=== PATIENT | female | born 1935 | race Caucasian/White ===

== ENCOUNTER 2017-12-20 23:57 | Emergency (ER) | payer OTHER ==
--- NOTE | 2017-12-21 00:08 | ED UPPER/LOWER EXTREMITY COMPL ---
History of Present Illness General Chief Complaint: Hip Injury Stated Complaint: BIBA RIGHT HIP DISLOCATION Source: patient Exam Limitations: no limitations Vital Signs & Intake/Output Vital Signs & Intake/Output Vital Signs Date Time Temp Pulse Resp B/P B/P Pulse O2 O2 Flow FiO2 Mean Ox Delivery Rate 12/21 0007 98.3 73 16 121/63 98 Room Air Allergies Coded Allergies: adhesive (UNKNOWN 12/21/17) celecoxib (UNKNOWN 12/21/17) methotrexate (UNKNOWN 12/21/17) morphine (UNKNOWN 12/21/17) propoxyphene (UNKNOWN 12/21/17) sulfamethazine (UNKNOWN 12/21/17) vancomycin (UNKNOWN 12/21/17) Reconcile Medications Acetaminophen 500 MG TABLET 650 MG PO Q4H PRN PAIN, TEMP OVER 100 (Reported) Acetaminophen 500 MG TABLET 650 MG ND Q4H PRN PAIN, TEMP OVER 100 (Reported) Bimatoprost (Lumigan) 0.01 % DROPS 1 GTT OPH QPM GLAUCOMA (Reported) Bisacodyl (Bisac-Evac) 10 MG SUPP.RECT 1 SUPP ND DAILY PRN CONSTIPATION ( Reported) IF M.O.M. INEFFECTIVE Brinzolamide/Brimonidine Tart (Simbrinza 1%-0.2% Eye Drops) 1 %-0.2 % DROPS.SUSP 1 DROP OU BID GLAUCOMA (Reported) Calcium Carbonate (TUMS) 200 MG CALCIUM (500 MG) TAB.CHEW 1,200 MG PO QAM REFLUX (Reported) Donepezil HCl (Aricept) 5 MG TABLET 1 TAB PO QAM (Reported) Hydroxychloroquine Sulfate 200 MG TABLET 1 TAB PO BID (Reported) Levothyroxine Sodium (Synthroid) 112 MCG TABLET 1 TAB PO DAILY HYPOTHYROID ( Reported) Lorazepam (Ativan) 0.5 MG TABLET 0.5 TAB PO BID AGITATION, ANXIETY (Reported) Magnesium Hydroxide (Milk Of Magnesia) 400 MG/5 ML ORAL.SUSP 30 ML PO DAILY PRN CONSTIPATION (Reported) Memantine HCl (Namenda) 10 MG TABLET 5 MG PO BID DEMENTIA (Reported) Multivitamin (Multivitamins) 1 EACH CAPSULE 1 TAB PO DAILY SUPPLEMENT ( Reported) Na Phos,M-B/Na Phos,Di-Ba (Fleet Enema) 19 GRAM-7 GRAM/118 ML ENEMA 1 E RC ONCE PRN CONSTIPATION (Reported) Quetiapine Fumarate 25 MG TABLET 1 TAB PO QPM DEPRESSION (Reported) Risperidone (Risperdal) 1 MG TABLET 1 TAB PO QPM DEPRESSION (Reported) Sennosides/Docusate Sodium (Senexon-S Tablet) 8.6 MG-50 MG TABLET 1 TAB PO DAILY CONSTIPATION (Reported) Sertraline HCl 50 MG TABLET 1 TAB PO DAILY DEPRESSION (Reported) Timolol Maleate 0.5 % DROPS 1 GTT OPH QAM GLAUCOMA (Reported) INTO L EYE Trazodone HCl 50 MG TABLET 12.5 MG PO Q8H PRN AGITATION (Reported) Triage Nurses Notes Reviewed? yes Onset: Just prior to arrival Duration: hour(s): (?) Timing: no prior history Severity: moderate Method of Injury: unknown Modifying Factors: Improves With: immobilization. Worsens With: movement. HPI: Patient is an 82-year-old female coming in by ambulance from nursing facility with chief complaint of right hip dislocation. Uncertain exactly when this happened. 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 On the pelvic x-ray they noted a right superior hip dislocation. There has been no documented injury or trauma or falls. Unsure exactly when this dislocation occurs. They're unsure when patient had right hip replacement surgery. Patient unable to tell history. (Chana Deshpande) Past History Travel History Traveled to [place] past 21 day No Medical History Any Pertinent Medical History? 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 No (Chana Deshpande) Review of Systems Review of Systems Constitutional: Reports: no symptoms. Comments Review of systems: See HPI, All other systems negative, provided by EMS and IV 10 Constitutional, no chills fever or weight loss HEENT: No visual changes no sore throat no congestion Cardiovascular: No chest pain ,palpitation Skin, no jaundice no rashes Respiratory: No dyspnea cough sputum GI: No nausea no vomiting : No dysuria , MENDEZ CATH Muscle skeletal: no back pain, no neck pain, Neurologic: No numbness no INCREASED confusion Psych: No stress anxiety or depression,. Heme/endocrine: No bruising no bleeding no polyuria or polydipsia Immunology: No splenectomy or history of AIDS (Chana Deshpande) Physical Exam Physical Exam General Appearance: well developed/nourished, no apparent distress, alert, anxious, comfortable Comments: Well-developed well-nourished person in no acute distress HEENT: Atraumatic, normocephalic Neck: Normal inspection Cardiovascular: Regular rate and rhythms Respiratory: Chest nontender. No respiratory distress.breath sounds clear to auscultation bilaterally Abdomen: Soft, nontender nondistended, no appreciable organomegaly. Normal bowel sounds. No ascites Extremity: No edema, no calf tenderness to palpation, normal and equal pulses. Right lower extremity is flexed at the hip and the knee and internally rotated slightly. Pedal pulses are 2+ bilaterally. Old surgical incision noted over the right patella. Neuro: alert to baseline Skin: No appreciable rash on exposed skin, skin is warm and dry. Psych: Mood and affect is normal for patient, poor memory (Chana Deshpande) Progress Differential Diagnosis: contusion, dislocation, fracture, sprain Diagnostic Imaging: Viewed by Me: Radiology Read. Discussed w/RAD: Radiology Read. Radiology Impression: SERVICE DATE: 12/21/17 EXAM TYPE: RAD - XRY-HIP 2-3 VIEWS, RIGHT EXAMINATION: XR HIP, RIGHT CLINICAL INFORMATION: Confirm questionable right hip dislocation COMPARISON: None TECHNIQUE: Two views of the right hip. FINDINGS: Hip arthroplasty hardware is present in the proximal right femur. The femoral head component is dislocated superolaterally relative to the acetabulum. No acute fracture is seen. There is partial visualization of additional hardware in the distal femur. There is also partial visualization of lumbosacral spine fusion hardware as well as screws traversing the sacroiliac joints. Regions of lucency are noted adjacent to the sacroiliac screws which are age-indeterminate though can be seen in the setting of loosening or infection. IMPRESSION: 1. Superolateral dislocation of the right femoral head arthroplasty hardware relative to the acetabulum. 2. Partial visualization of additional hardware as noted above. Regions of lucency adjacent to sacroiliac screws are age-indeterminate though in the proper clinical setting can be seen with loosening or infection. DICTATED BY: Jelani Bejarano MD DATE/TIME DICTATED:12/21 MAIL FORWARDING SYSTEM MARKUP CLERK:MADDISON DATE/TIME TRANSCRIBED:12/21/17127 CONFIDENTIAL, DO NOT COPY WITHOUT APPROPRIATE AUTHORIZATION. <Electronically signed in Other Vendor System> SIGNED BY: Jelani Bejarano MD 12/21/17133 (Chana Deshpande) Plan of Care: Orders Procedure Date/time Status PARTIAL THROMBOPLASTIN TIME 12/22 123 Complete PROTHROMBIN TIME 12/22 123 Complete COMPREHENSIVE METABOLIC PANEL 12/22 123 Complete CBC WITHOUT DIFFERENTIAL 12/22 123 Complete TYPE & SCREEN (NOT X-MATCH) 12/22 123 Complete Current Medications Sig/Rosa Start time Last Medication Dose Stop Time Status Admin Hydromorphone HCl 0.2 MG ONCE ONE 12/21 129 CAN (Dilaudid) 12/21 130 Laboratory Tests 12/21/17129: Anion Gap 12, Estimated GFR > 60, BUN/Creatinine Ratio 20.0, Glucose 88, Calcium 9.6, Total Bilirubin 0.2, AST 17, ALT 22, Alkaline Phosphatase 94, Total Protein 5.5 L, Albumin 2.9 L, Globulin 2.6, Albumin/Globulin Ratio 1.1, PT 12.1, INR 1.11, APTT 28, CBC w Diff NO MAN DIFF REQ, RBC 4.04 L, MCV 80.5 L, MCH 26.6 L , MCHC 33.1, RDW 16.4 H, MPV 7.7, Gran % 69.9, Lymphocytes % 15.7 L, Monocytes % 8.8, Eosinophils % 5.0, Basophils % 0.6, Absolute Granulocytes 4.8, Absolute Lymphocytes 1.1 L, Absolute Monocytes 0.6, Absolute Eosinophils 0.3, Absolute Basophils [address] Ingram regarding patient's hip x-ray. Unable to reduce hip after several times. He thinks that her hip has been dislocated for several years and since she is noncontributory N she should be sent back to the nursing facility and follow up outpatient. (Chana Deshpande) (Nino CHEN,Aimee) Departure Departure Disposition: HOME OR SELF CARE Condition: Stable Clinical Impression Primary Impression: Hip dislocation, right Qualifiers: Encounter type: initial encounter Qualified Code: S73.004A - Unspecified dislocation of right hip, initial encounter Ruled Out Impressions: Hip dislocation, bilateral Referrals: Edward John MD (PCP/Family) Additional Instructions: Follow-up with your primary care physician the next 1-2 days. Avoid excessive flexion or extension of the right hip. Departure Forms: Customer Survey General Discharge Information (Chana Deshpande) PA/DETECTIVE SERGEANT Co-Sign Statement Statement: ED Attending supervision documentation- [X] I saw and evaluated the patient. I have also reviewed all the pertinent lab results and diagnostic results. I agree with the findings and the plan of care as documented in the PA's/DETECTIVE SERGEANT's documentation. [X] I have reviewed the ED Record and agree with the PA's/DETECTIVE SERGEANT's documentation. [] Additions or exceptions (if any) to the PAs/DETECTIVE SERGEANT's note and plan are summarized below: [] (Nino CHEN,Aimee)
[2017-12-21] MEDS ORDERED: TUMS200 MG PO (01:18)
[2017-12-21] MEDS ORDERED: SYNTHROID112 MCG PO (01:18)
[2017-12-21] MEDS ORDERED: ARICEPT5 M1 PO (01:19)
[2017-12-21] MEDS ORDERED: MULTIVITAMINS1 EAC8 PO (01:19)
[2017-12-21] MEDS ORDERED: TIMOLOL MALEATE5 M4 OPH (01:20)
[2017-12-21] MEDS ORDERED: SENEXON-S TABL1 EACH PO (01:20)
[2017-12-21] MEDS ORDERED: SERTRALINE HCL50 MG PO (01:20)
[2017-12-21] MEDS ORDERED: HYDROXYCHLOROQ200 M2 PO (01:21)
[2017-12-21] MEDS ORDERED: NAMENDA10 M2 PO (01:21)
[2017-12-21] MEDS ORDERED: SIMBRINZA 1%-0.28 ML OU (01:22)
[2017-12-21] MEDS ORDERED: ATIVAN0.5 M1 PO (01:22)
[2017-12-21] MEDS ORDERED: RISPERDAL1 M1 PO (01:23)
[2017-12-21] MEDS ORDERED: LUMIGAN2.5 ML OPH (01:23)
[2017-12-21] MEDS ORDERED: QUETIAPINE FUMA25 M1 PO (01:23)
[2017-12-21] MEDS ORDERED: MILK OF MA400 MG/52 PO (01:24)
[2017-12-21] MEDS ORDERED: BISAC-EVAC10 M1 PR (01:25)
[2017-12-21] MEDS ORDERED: FLEET ENEMA133 ML RC (01:25)
[2017-12-21] MEDS ORDERED: TRAZODONE HCL50 M1 PO (01:27)
[2017-12-21] MEDS ORDERED: ACETAMINOPHEN500 M4 PO (01:27)
[2017-12-21] MEDS ORDERED: ACETAMINOPHEN500 M4 PR (01:28)
--- NOTE | 2017-12-21 01:34 | RADIOLOGY REPORT ---
EXAMINATION: XR HIP, RIGHT CLINICAL INFORMATION: Confirm questionable right hip dislocation COMPARISON: None TECHNIQUE: Two views of the right hip. FINDINGS: Hip arthroplasty hardware is present in the proximal right femur. The femoral head component is dislocated superolaterally relative to the acetabulum. No acute fracture is seen. There is partial visualization of additional hardware in the distal femur. There is also partial visualization of lumbosacral spine fusion hardware as well as screws traversing the sacroiliac joints. Regions of lucency are noted adjacent to the sacroiliac screws which are age-indeterminate though can be seen in the setting of loosening or infection. IMPRESSION: 1. Superolateral dislocation of the right femoral head arthroplasty hardware relative to the acetabulum. 2. Partial visualization of additional hardware as noted above. Regions of lucency adjacent to sacroiliac screws are age-indeterminate though in the proper clinical setting can be seen with loosening or infection.
[2017-12-21 01:52] LABS: ABSOLUTE BASOPHIL COUNT 0 /CUMM (0.0-0.2); ABSOLUTE EOSINOPHIL COUNT 0.3 /CUMM (0.0-0.7); ABSOLUTE GRANULOCYTE CT 4.8 /CUMM (1.4-6.5); ABSOLUTE LYMPH COUNT 1.1 /CUMM (1.2-3.4); ABSOLUTE MONOCYTE COUNT 0.6 /CUMM (0.10-0.60); BASOPHIL % 0.6 % (0.0-2.0); GRANULOCYTE % 69.9 % (42.2-75.2); HEMATOCRIT 32.5 % (37-47); MEAN CORPUSCULAR HGB 26.6 PG (27.0-31.0); MEAN CORPUSCULAR HGB CONC 33.1 G/DL (33.0-37.0); MEAN CORPUSCULAR VOLUME 80.5 FL (81.0-99.0); MEAN PLATELET VOLUME 7.7 FL (7.4-10.4); PLATELET COUNT 380 /CUMM (130-400); RBC DISTRIBUTION WIDTH 16.4 % (11.5-14.5); RED BLOOD CELL CT 4.04 /CUMM (4.20-5.40); WHITE BLOOD CELL COUNT 6.8 /CUMM (4.8-10.8)
[2017-12-21 02:03] LABS: PT 12.1 SEC (9.4-12.5); PTT 28 SEC (25-37)
[2017-12-21 02:51] VITALS: BP 137/63
== END 2017-12-21 03:31 ==
LOC: ERH 23:57
PROVIDERS: Emergency Medicine
DX: M24.351 Pathological dislocation of right hip, not elsewhere classified (principal)
CPT/HCPCS: 73502-RT

== ENCOUNTER 2018-01-28 20:58 | Inpatient (IN) | payer OTHER ==
[~2018-01-28] VITALS: Ht 152.4 cm; Wt 57.7 kg
[~2018-01-28 20:58] MED LIST: ACETAMINOPHEN500 M4 PO; ACETAMINOPHEN500 M4 PR; ARICEPT5 M1 PO; ATIVAN0.5 M1 PO; BISAC-EVAC10 M1 PR; FLEET ENEMA133 ML RC; HYDROXYCHLOROQ200 M2 PO; LUMIGAN2.5 ML OPH; MILK OF MA400 MG/52 PO; MULTIVITAMINS1 EAC8 PO; NAMENDA10 M2 PO; QUETIAPINE FUMA25 M1 PO; RISPERDAL1 M1 PO; SENEXON-S TABL1 EACH PO; SERTRALINE HCL50 MG PO; SIMBRINZA 1%-0.28 ML OU; SYNTHROID112 MCG PO; TIMOLOL MALEATE5 M4 OPH; TRAZODONE HCL50 M1 PO; TUMS200 MG PO
--- NOTE | 2018-01-28 21:35 | ED AMS/SEIZURE/WEAK/DIZZY ---
See Addendum History of Present Illness General Chief Complaint: Altered Mental Status Stated Complaint: BIBA AMS Source: old records, EMS, W10 Exam Limitations: unable to give history, not alert/orientated, dementia Vital Signs & Intake/Output Vital Signs & Intake/Output Vital Signs Date Time Temp Pulse Resp B/P B/P Pulse O2 O2 Flow FiO2 Mean Ox Delivery Rate 01/29 0244 97.7 88 16 121/60 95 Room Air 01/29 0039 93 18 120/56 95 Room Air 01/28 2249 97.3 89 14 122/59 95 Room Air 01/28 2221 74 109/53 01/28 2107 98.4 85 22 96/54 95 Room Air 01/28 2105 Room Air ED Intake and Output 01/29 0000 01/28 1200 Intake Total Output Total Balance Patient 160 lb Weight Weight Estimated Measurement Method Allergies Coded Allergies: adhesive (UNKNOWN 12/21/17) celecoxib (UNKNOWN 12/21/17) methotrexate (UNKNOWN 12/21/17) morphine (UNKNOWN 12/21/17) propoxyphene (UNKNOWN 12/21/17) sulfamethazine (UNKNOWN 12/21/17) vancomycin (UNKNOWN 12/21/17) Triage Note: BIBA FROM [place], PER FACILITY STAFF PATIENT IS DEMENTED BUT ALERT AT BASELINE. UPON EMS ARRIVAL PATIENT IS RESPONSIVE TO PAINFUL STIMULI ONLY. PATIENT HAS HISTORY OF CHRONIC WOUND TO R BUTTOCKS. PATIENT IS HYPOTENSIVE PER EMS, IV ACCESS ESTABLISHED #18 LW. PATIENT PLACED ON EDUCATIONAL ADVISOR, CHANGED INTO HOSPITAL GOWN. Triage Nurses Notes Reviewed? yes Onset: Morning Duration: day(s): (1) Severity: moderate HPI: 82 year old female brought in by ambulance [facility]. It was reported today that she had altered mental status at the place where she resides. Patient is typically awake and alert with some baseline dementia. Today she became less responsive throughout the day and presented to the emergency department obtunded. Information given by EMS. Patient's family not present at time of entry to the emergency department. (Gavin TORRES,Zenon) Reconcile Medications Bimatoprost (Lumigan) 0.01 % DROPS 1 GTT OPH QPM GLAUCOMA (Reported) Bisacodyl (Bisac-Evac) 10 MG SUPP.RECT 1 SUPP NM DAILY PRN CONSTIPATION ( Reported) IF M.O.M. INEFFECTIVE Brinzolamide/Brimonidine Tart (Simbrinza 1%-0.2% Eye Drops) 1 %-0.2 % DROPS.SUSP 1 DROP OU BID GLAUCOMA (Reported) Calcium Carbonate (TUMS) 200 MG CALCIUM (500 MG) TAB.CHEW 1,200 MG PO QAM REFLUX (Reported) Donepezil HCl (Aricept) 5 MG TABLET 1 TAB PO QAM (Reported) Hydroxychloroquine Sulfate 200 MG TABLET 1 TAB PO BID (Reported) Levothyroxine Sodium (Synthroid) 112 MCG TABLET 1 TAB PO DAILY HYPOTHYROID ( Reported) Lorazepam (Ativan) 0.5 MG TABLET 0.5 TAB PO BID AGITATION, ANXIETY (Reported) Magnesium Hydroxide (Milk Of Magnesia) 400 MG/5 ML ORAL.SUSP 30 ML PO DAILY PRN CONSTIPATION (Reported) Memantine HCl (Namenda) 10 MG TABLET 5 MG PO BID DEMENTIA (Reported) Mirtazapine (Remeron) 15 MG TABLET 0.5 TAB PO QPM sleep (Reported) Multivitamin (Multivitamins) 1 EACH CAPSULE 1 TAB PO DAILY SUPPLEMENT ( Reported) Na Phos,M-B/Na Phos,Di-Ba (Fleet Enema) 19 GRAM-7 GRAM/118 ML ENEMA 1 E RC ONCE PRN CONSTIPATION (Reported) Quetiapine Fumarate (Seroquel) 25 MG TABLET 0.5 TAB PO BID agitation ( Reported) Quetiapine Fumarate 25 MG TABLET 1 TAB PO QPM DEPRESSION (Reported) Risperidone (Risperdal) 1 MG TABLET 1 TAB PO QPM DEPRESSION (Reported) Sennosides/Docusate Sodium (Senexon-S Tablet) 8.6 MG-50 MG TABLET 1 TAB PO DAILY CONSTIPATION (Reported) Sertraline HCl 50 MG TABLET 1 TAB PO DAILY depression (Reported) Timolol Maleate 0.5 % DROPS 1 GTT OPH QAM GLAUCOMA (Reported) INTO L EYE Trazodone HCl 50 MG TABLET 12.5 TAB PO Q8 PRN agitation (Reported) (Leny CHEN,Kristian Partida) Past History Travel History Traveled to [place] past 21 day No Medical History Any Pertinent Medical History? see below for history Neurological: dementia EENT: glaucoma Cardiovascular: NONE Respiratory: NONE Gastrointestinal: constipation Hepatic: NONE Renal: chronic kidney disease, OBSTRUCTIVE UROPATHY Musculoskeletal: PRESSURE ULCER BUTTOCKS Psychiatric: anxiety, depression Endocrine: hypothyroidism Blood Disorders: NONE Cancer(s): NONE EXPEDITER/Reproductive: NONE Surgical History Surgical History: RIGHT HIP ARTHROPLASTY Psychosocial History What is your primary language Burmese Tobacco Use: Never used ETOH Use: denies use Family History Hx Contributory? No (Zenon Mishra) Review of Systems Review of Systems Constitutional: Reports: see HPI. EENTM: Reports: no symptoms. Respiratory: Reports: no symptoms. Cardiovascular: Reports: no symptoms. GI: Reports: no symptoms. Genitourinary: Reports: no symptoms. Musculoskeletal: Reports: no symptoms. Skin: Reports: no symptoms. Neurological/Psychological: Reports: see HPI. Hematologic/Endocrine: Reports: no symptoms. Immunologic/Allergic: Reports: no symptoms. All Other Systems: Reviewed and Negative (Zenon Mishra) Physical Exam Physical Exam General Appearance: lethargic, responsive only to sternal rub Head: atraumatic, normal appearance Ears, Nose, Throat: normal ENT inspection Neck: normal inspection Respiratory: normal breath sounds, no respiratory distress Cardiovascular: systolic murmur (holosystolic IV/) Peripheral Pulses: 2+ radial (R), 2+ radial (L), 2+ dorsalis pedis (R), 2+ dorsalis pedis (L) Gastrointestinal: normal bowel sounds, soft, non-tender Extremities: able to lift both arms when asked after sternal rub, unable to lift legs, uncertain if this is baseline or not Neurologic/Psych: unable to assess d/t AMS. after sternal rub patient able to give her first name. Skin: intact, normal color, diaphoresis Core Measures ACS in differential dx? Yes CVA/TIA Diagnosis No Sepsis Present: Yes Sepsis Focused Exam Completed? Yes (Zenon Mishra) ED Sepsis Exam Date of Focused Sepsis Exam: 01/29/18 Time of Focused Sepsis Exam: 2114 Sepsis Cardiac Exam: Tachycardia Sepsis Resp Exam: CTA Sepsis Cap Refill Exam: <2 Sec Sepsis Peripheral Pulse Exam: Weak Sepsis Peripheral Pulse Location: Radial Sepsis Skin Color Exam: Normal for Ethnicity Skin Temp/Moisture Exam: Warm/Dry (Zenon Mishra) Progress Differential Diagnosis: dehydration, electrolyte imbalance, hypoglycemia, pneumonia, sepsis, UTI/pyelo Plan of Care: Orders Procedure Date/time Status CBC WITHOUT DIFFERENTIAL 01/30 600 Active BASIC ELECTROLYTES PLUS BUN&CR 01/30 600 Active Heart Healthy Diet 01/29 B Active CBC WITHOUT DIFFERENTIAL 01/29 06 Active BASIC ELECTROLYTES PLUS BUN&CR 01/29 0600 Active Intake & Output 01/29 0233 Active LOWER RESPIRATORY CULTURE 01/29 0135 Active Pathway - chart 01/29 0129 Active House Staff 01/29 0129 Active Code Status 01/29 0129 Active Saline Lock 01/29 0056 Active Misc Message 01/29 0056 Active ED Holding Orders 01/29 0056 Active Admit to inpatient 01/29 0056 Active Vital Signs 01/29 0056 Active Code Status 01/29 0056 Complete Add-on Test (ER Only) 01/29 0039 Active Patient Data 01/29 37 Active Add-on Test (ER Only) 01/30 36 Active VTE Mechanical Prophylaxis 01/29 UNK Active Add-on Test (ER Only) 01/28 2249 Active Add-on Test (ER Only) 01/28 2237 Active TSH REFLEX 01/28 2215 Active TOTAL TRIODOTHYROXINE 01/28 2215 Active TOTAL IRON BINDING CAPACITY 01/28 2215 Active RETICULOCYTE COUNT 01/28 2215 Complete FREE T4 01/28 2215 Active FOLIC ACID 01/28 2215 Active FERRITIN 01/28 2215 Active SERUM IRON 01/28 2215 Active C-REACTIVE PROTEIN 01/28 2215 Active CREATINE PHOSPHOKINASE 01/28 2215 Active VITAMIN B12 01/28 2215 Active CULTURE,URINE 01/28 2205 Active URINE DRUGS OF ABUSE 01/28 2205 Complete BLOOD CULTURE 01/29 2108 Active URINALYSIS 01/29 2108 Complete TROPONIN LEVEL 01/29 2108 Active LACTIC ACID 01/29 2108 Active COMPREHENSIVE METABOLIC PANEL 01/29 2108 Active CBC WITHOUT DIFFERENTIAL 01/29 2108 Complete EKG 01/29 2108 Active Current Medications Sig/Rosa Start time Last Medication Dose Stop Time Status Admin Latanoprost 1 GTT AT BEDTIME 01/29 2100 AC (Xalatan) Clindamycin 600 MG IQ8 01/29 1000 AC (Cleocin) Dextrose/Water 50 ML (D5W) Calcium Carbonate 1,250 MG QAM 01/29 0900 AC (TUMS) Enoxaparin Sodium 40 MG DAILY 01/29 09 AC (Lovenox) Hydroxychloroquine 200 MG BID 01/29 09 AC Sulfate (Plaquenil 200MG Tab) Levothyroxine Sodium 0.112 MG DAILY 01/29 0900 AC (Synthroid) Timolol Maleate 1 GTT QAM 01/29 09 AC (Timoptic) Meropenem 1 GM IQ8 01/29 08 UNVr (MEROPENEM) Sodium Chloride 1,000 ML Q20H 01/29 0300 AC (Normal Saline 0.9%) 01/29 2259 Clindamycin 600 MG ONCE ONE 01/29 0230 AC (Cleocin) 01/29 0259 Dextrose/Water 50 ML (D5W) Imipenem/Cilastatin 500 MG 0200 01/29 0200 AC 01/29 Sodium 01/29 0300 0201 (Primaxin 500MG Vial) Non-Formulary 0 SEE ADMIN CRITERIA 01/29 0145 UNVr Medication (NON FORMULARY) Acetaminophen 650 MG Q6P PRN 01/29 0130 AC (Tylenol) Laboratory Tests 01/29/18 0008: Lactic Acid Cancelled 01/28/185: Anion Gap 10, Estimated GFR > 60, BUN/Creatinine Ratio 22.5, Glucose 121 H, Lactic Acid 1.0, Calcium 8.8, Iron 21 L, TIBC 280, Ferritin 93.4, Total Bilirubin 0.6, AST 19, ALT 24, Alkaline Phosphatase 81, Creatine Kinase 160 H, Troponin I < 0.01, C-Reactive Prot, Quant > 9.0 H, Total Protein 5.5 L, Albumin 2.7 L, Globulin 2.8, Albumin/Globulin Ratio 1.0 L, Vitamin B12 Pending , Folate Pending, Free T4 1.42, Total T3 Pending, TSH &T3 &Free T4 Intrp 7.260 H, CBC w Diff MAN DIFF ORDERED, RBC 3.13 L, MCV 79.2 L, MCH 26.0 L, MCHC 32.8 L, RDW 17.0 H, MPV 7.8, Gran % 88.1 H, Lymphocytes % 4.6 L, Monocytes % 6.9, Eosinophils % 0, Basophils % 0.4, Absolute Granulocytes 19.5 H, Segmented Neutrophils 84 H, Band Neutrophils 3, Absolute Lymphocytes 1.0 L, Lymphocytes 6 L, Monocytes 7, Absolute Monocytes 1.5 H, Absolute Eosinophils 0, Absolute Basophils 0.1, Platelet Estimate ADEQUATE, Anisocytosis 1+, Microcytic Cells 1+, Retic Count 2.41 H 01/28/18 2205: Urine Opiates Screen < 100, Methadone Screen 43, Barbiturate Screen < 60, Ur Phencyclidine Scrn < 6.00, Amphetamines Screen 279, U Benzodiazepines Scrn 143, Urine Cocaine Screen < 50, Urine Cannabis Screen < 5.00, Urine Color YEL, Urine Clarity HAZY H, Urine pH 8.0, Ur Specific [place] >= 1.030, Urine Protein 30 H , Urine Ketones NEG, Urine Nitrite NEG, Urine Bilirubin NEG, Urine Urobilinogen 0.2, Ur Leukocyte Esterase MOD H, Ur Microscopic SEDIMENT EXAMINED, Urine RBC RARE, Urine WBC 1-3 H, Ur Epithelial Cells RARE, Urine Bacteria MANY H, Urine Mucus RARE, Urine Hemoglobin NEG, Urine Glucose NEG Microbiology 01/29 135 LOWER RESP: Respiratory Culture - ORD 01/29 135 LOWER RESP: Gram Stain - ORD 01/28 2230 BLOOD: Blood Culture - RECD 01/29 2220 BLOOD: Blood Culture - RECD 01/28 2205 URINE ROUT: Urine Culture - RECD Diagnostic Imaging: Viewed by Me: Radiology Read, CT Scan. Discussed w/RAD: Radiology Read, CT Scan. Radiology Impression: PATIENT: EZEQUIEL ALFONSO PRESENT AGE: 82 PATIENT ACCOUNT NO: [id number] : 33 LOCATION: [facility] ORDERING PHYSICIAN: Zenon TORRES SERVICE DATE: 01/28/18 EXAM TYPE : CAT - CT HEAD WO IV CONTRAST EXAMINATION: CT HEAD WITHOUT CONTRAST CLINICAL INFORMATION: Altered mental status. COMPARISON: None TECHNIQUE: Contiguous axial imaging was performed from the skull base to vertex without intravenous administration of contrast. DLP: 625.59 mGy-cm FINDINGS: Generalized parenchymal atrophy of the brain with proportionate dilation of the ventricles, sulci, and basilar cisterns. Patchy hypodensities in the bilateral periventricular and subcortical white matter are nonspecific but most suggestive of the sequela of chronic microvascular ischemia in this age group. There are intracranial atherosclerotic calcifications. There is no evidence of acute intracranial hemorrhage or territorial infarction. No abnormal mass effect or midline shift is seen. Disla to white matter differentiation is otherwise well preserved. No extra-axial fluid collections are identified. The osseous structures and soft tissues are normal. The mastoid air cells and visualized portions of the paranasal sinuses are well aerated. The right lower [place] ocular lens is surgically absent. Globes and retrobulbar soft tissues are otherwise within normal limits. IMPRESSION: No acute intracranial pathology. DICTATED BY: Albert Savage MD DATE/TIME DICTATED:01/28/182150 CRIMINAL ANALYST:MADDISON DATE/TIME TRANSCRIBED:01/28/182150 CONFIDENTIAL, DO NOT COPY WITHOUT APPROPRIATE AUTHORIZATION. <Electronically signed in Other Vendor System> SIGNED BY: Albert Savage MD 01/28/182156, PATIENT: EZEQUIEL ALFONSO PRESENT AGE: 82 PATIENT ACCOUNT NO: [id number] : 33 LOCATION: ER ORDERING PHYSICIAN: Zenon TORRES SERVICE DATE: 01/28/18 EXAM TYPE : RAD - XRY-PORTABLE CHEST XRAY EXAMINATION: XR PORTABLE CHEST CLINICAL INFORMATION: Altered mental status COMPARISON: None TECHNIQUE: AP portable view of the chest was obtained. FINDINGS: Heart size is normal. Pulmonary vascularity is normal. The lungs are hypoexpanded. No focal consolidation or atelectasis is appreciated at this time. There is no pneumothorax or pleural effusion. There is spinal fusion hardware over the lower thoracic and upper lumbar spine. There is degenerative change in the shoulders IMPRESSION: Mildly hypoexpanded but clear lungs with no acute or focal findings DICTATED BY: Melva Doherty MD DATE/ TIME DICTATED:01/28/182157 CRIMINAL ANALYST:MADDISON DATE/TIME TRANSCRIBED: 01/28/182157 CONFIDENTIAL, DO NOT COPY WITHOUT APPROPRIATE AUTHORIZATION. < Electronically signed in Other Vendor System> SIGNED BY: Melva Doherty MD 01/28/182202, PATIENT: EZEQUIEL ALFONSO PRESENT AGE: 82 PATIENT ACCOUNT NO: [id number] : 33 LOCATION: ER ORDERING PHYSICIAN: Zenon TORRES SERVICE DATE: 01/28/18 EXAM TYPE : CAT - CT ABD & PELVIS W/O IV CONTRAS EXAMINATION: CT ABDOMEN AND PELVIS WITHOUT CONTRAST CLINICAL INFORMATION: Altered mental status COMPARISON: None TECHNIQUE: Multidetector volumetric imaging was performed from the superior aspect of the liver through the pubic symphysis. Sagittal and coronal reformatted images were obtained on the technologist's workstation. DLP: 413.58 mGy-cm FINDINGS: Assessment throughout the abdomen is limited due to streak artifact from spinal fusion hardware. LUNG BASES: There is mild dependent atelectasis at the lung bases. There is a predominantly calcified right lower lobe nodule measuring 6 mm on image 7/83. LIVER, GALLBLADDER, AND BILIARY TREE: The liver is normal in size, shape, and attenuation. No focal hepatic lesion or biliary ductal dilatation is present. Patient is status post cholecystectomy. PANCREAS: Unremarkable. SPLEEN: Unremarkable. ADRENAL GLANDS: Unremarkable. KIDNEYS AND URETERS: Bilateral extra renal pelvises are noted. No definite obstructing calculus. A 2.2 cm left mid renal cyst is noted. Unenhanced renal parenchyma otherwise appears grossly unremarkable. BLADDER: Unremarkable. GASTROINTESTINAL TRACT: The rectum has a thick-walled appearance, which could reflect inflammation with mild surrounding stranding. There is colonic diverticulosis. No findings to suggest bowel obstruction. A moderate amount of stool is present in the colon. ABDOMINAL WALL: Small hernia is noted along the left posterolateral abdominal wall containing a short segment of colon without evidence of obstruction. LYMPH NODES: Not adequately assessed due to extensive streak artifact and absence of intravenous contrast. VASCULAR: There is atherosclerotic calcification along the aorta. PELVIC VISCERA: Patient appears status post hysterectomy. OSSEOUS STRUCTURES: There is fusion hardware throughout the included portion of the thoracolumbar spine. Patient is status post right hip arthroplasty, and there is superior dislocation of the femoral head component relative to the acetabulum, similar to 12/21/2017. IMPRESSION: 1. Limited assessment of intra-abdominal structures due to streak artifact from spinal fusion hardware. 2. Thick-walled appearance of the rectum with mild surrounding stranding; this could reflect a proctitis in the proper clinical setting. DICTATED BY: Jelani Bejarano MD DATE/TIME DICTATED:01/29/184 CRIMINAL ANALYST:MADDISON DATE/TIME TRANSCRIBED:01/29/184 CONFIDENTIAL, DO NOT COPY WITHOUT APPROPRIATE AUTHORIZATION. <Electronically signed in Other Vendor System> SIGNED BY: Jelani Bejarano MD 01/29/18 0019 Initial ED EKG: normal sinus rhythm, rate (77) (Zenon Mishra) Departure Departure Disposition: STILL A PATIENT Condition: Stable Clinical Impression Primary Impression: Sepsis Secondary Impressions: Altered mental status Referrals: Edward John MD (PCP/Family) Departure Forms: Customer Survey General Discharge Information Admission Note Spoke With: Edward John MD Documentation of Exam: Documentation of any treatments & extenuating circumstances including Concerns Regarding Discharge (functional status, medication knowledge or non-compliance, living conditions, etc.) that warrant an admission rather than observation: Patient will require IV antibiotics. IV fluids. Infectious disease consultation. High risk. (Zenon Mishra) PA/TOPOLOGY TEACHER Co-Sign Statement Statement: ED Attending supervision documentation- [x] I saw and evaluated the patient. I have also reviewed all the pertinent lab results and diagnostic results. I agree with the findings and the plan of care as documented in the PA's/TOPOLOGY TEACHER's documentation. 01/28/18, 22:54... pt meets criteria for sepsis, presently resting comfortable, wbc 22,000. Most likely etiology is urine vs other. cxr is benign, 02 sat is normal. Given history of ESBL resistant e.coli and her septic shock, will give imipenem, pending cultures. [] I have reviewed the ED Record and agree with the PA's/TOPOLOGY TEACHER's documentation. [] Additions or exceptions (if any) to the PAs/TOPOLOGY TEACHER's note and plan are summarized below: [] (Leny CHEN,Kristian Partida) Critical Care Note Critical Care Note Critical Care Time: 30-74 min (35) (Zenon Mishra)
--- NOTE | 2018-01-28 21:57 | CT SCAN REPORT ---
EXAMINATION: CT HEAD WITHOUT CONTRAST CLINICAL INFORMATION: Altered mental status. COMPARISON: None TECHNIQUE: Contiguous axial imaging was performed from the skull base to vertex without intravenous administration of contrast. DLP: 625.59 mGy-cm FINDINGS: Generalized parenchymal atrophy of the brain with proportionate dilation of the ventricles, sulci, and basilar cisterns. Patchy hypodensities in the bilateral periventricular and subcortical white matter are nonspecific but most suggestive of the sequela of chronic microvascular ischemia in this age group. There are intracranial atherosclerotic calcifications. There is no evidence of acute intracranial hemorrhage or territorial infarction. No abnormal mass effect or midline shift is seen. Disla to white matter differentiation is otherwise well preserved. No extra-axial fluid collections are identified. The osseous structures and soft tissues are normal. The mastoid air cells and visualized portions of the paranasal sinuses are well aerated. The right [place] ocular lens is surgically absent. Globes and retrobulbar soft tissues are otherwise within normal limits. IMPRESSION: No acute intracranial pathology.
--- NOTE | 2018-01-28 22:03 | RADIOLOGY REPORT ---
EXAMINATION: XR PORTABLE CHEST CLINICAL INFORMATION: Altered mental status COMPARISON: None TECHNIQUE: AP portable view of the chest was obtained. FINDINGS: Heart size is normal. Pulmonary vascularity is normal. The lungs are hypoexpanded. No focal consolidation or atelectasis is appreciated at this time. There is no pneumothorax or pleural effusion. There is spinal fusion hardware over the lower thoracic and upper lumbar spine. There is degenerative change in the shoulders IMPRESSION: Mildly hypoexpanded but clear lungs with no acute or focal findings
[2018-01-28 22:21] LABS: ABSOLUTE BASOPHIL COUNT 0.1 /CUMM (0.0-0.2); ABSOLUTE EOSINOPHIL COUNT 0 /CUMM (0.0-0.7); EOSINOPHIL % 0 % (0-5); MEAN PLATELET VOLUME 7.8 FL (7.4-10.4); RED BLOOD CELL CT 3.13 /CUMM (4.20-5.40)
[2018-01-28 22:23] LABS: ABSOLUTE GRANULOCYTE CT 19.5 /CUMM (1.4-6.5); ABSOLUTE MONOCYTE COUNT 1.5 /CUMM (0.10-0.60); BASOPHIL % 0.4 % (0.0-2.0); GRANULOCYTE % 88.1 % (42.2-75.2); HEMATOCRIT 24.8 % (37-47); MEAN CORPUSCULAR HGB CONC 32.8 G/DL (33.0-37.0); MEAN CORPUSCULAR VOLUME 79.2 FL (81.0-99.0); PLATELET COUNT 323 /CUMM (130-400)
[2018-01-28 22:24] LABS: WHITE BLOOD CELL COUNT 22.1 /CUMM (4.8-10.8)
--- NOTE | 2018-01-29 00:19 | CT SCAN REPORT ---
EXAMINATION: CT ABDOMEN AND PELVIS WITHOUT CONTRAST CLINICAL INFORMATION: Altered mental status COMPARISON: None TECHNIQUE: Multidetector volumetric imaging was performed from the superior aspect of the liver through the pubic symphysis. Sagittal and coronal reformatted images were obtained on the technologist's workstation. DLP: 413.58 mGy-cm FINDINGS: Assessment throughout the abdomen is limited due to streak artifact from spinal fusion hardware. LUNG BASES: There is mild dependent atelectasis at the lung bases. There is a predominantly calcified right lower lobe nodule measuring 6 mm on image 7/83. LIVER, GALLBLADDER, AND BILIARY TREE: The liver is normal in size, shape, and attenuation. No focal hepatic lesion or biliary ductal dilatation is present. Patient is status post cholecystectomy. PANCREAS: Unremarkable. SPLEEN: Unremarkable. ADRENAL GLANDS: Unremarkable. KIDNEYS AND URETERS: Bilateral extra renal pelvises are noted. No definite obstructing calculus. A 2.2 cm left mid renal cyst is noted. Unenhanced renal parenchyma otherwise appears grossly unremarkable. BLADDER: Unremarkable. GASTROINTESTINAL TRACT: The rectum has a thick-walled appearance, which could reflect inflammation with mild surrounding stranding. There is colonic diverticulosis. No findings to suggest bowel obstruction. A moderate amount of stool is present in the colon. ABDOMINAL WALL: Small hernia is noted along the left posterolateral abdominal wall containing a short segment of colon without evidence of obstruction. LYMPH NODES: Not adequately assessed due to extensive streak artifact and absence of intravenous contrast. VASCULAR: There is atherosclerotic calcification along the aorta. PELVIC VISCERA: Patient appears status post hysterectomy. OSSEOUS STRUCTURES: There is fusion hardware throughout the included portion of the thoracolumbar spine. Patient is status post right hip arthroplasty, and there is superior dislocation of the femoral head component relative to the acetabulum, similar to 12/21/2017. IMPRESSION: 1. Limited assessment of intra-abdominal structures due to streak artifact from spinal fusion hardware. 2. Thick-walled appearance of the rectum with mild surrounding stranding; this could reflect a proctitis in the proper clinical setting.
--- NOTE | 2018-01-29 00:42 | History & Physical ---
Ab Cintron 01/29/18 0040: General Information and HPI History of Present Illness: Ms. Ortiz is a 82 yo F with a PMH of anxiety, hypothyroidism, dementia, depression, obstructive uropathy, ESBL and MRSA who presents from [facility] to the ED with a fever of 102.5. Patient poor historian. 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 She was also lethargic and borderline hypotensive BP 115/68, HR 104. Her labs and cultures were sent that reported this morning blood cultures gram-positive cocci in one bottle. POA was contacted in regards to this information and requested the patient be sent to the hospital for further management though advanced directives reported no hospitalization. She denies nausea, vomiting, abdominal pain, urinary or bowel symptoms. Allergies/Medications Allergies: Coded Allergies: adhesive (UNKNOWN 12/21/17) celecoxib (UNKNOWN 12/21/17) methotrexate (UNKNOWN 12/21/17) morphine (UNKNOWN 12/21/17) propoxyphene (UNKNOWN 12/21/17) sulfamethazine (UNKNOWN 12/21/17) vancomycin (UNKNOWN 12/21/17) Home Med list Bimatoprost (Lumigan) 0.01 % DROPS 1 GTT OPH QPM GLAUCOMA (Reported) Bisacodyl (Bisac-Evac) 10 MG SUPP.RECT 1 SUPP ME DAILY PRN CONSTIPATION ( Reported) IF M.O.M. INEFFECTIVE Brinzolamide/Brimonidine Tart (Simbrinza 1%-0.2% Eye Drops) 1 %-0.2 % DROPS.SUSP 1 DROP OU BID GLAUCOMA (Reported) Calcium Carbonate (TUMS) 200 MG CALCIUM (500 MG) TAB.CHEW 1,200 MG PO QAM REFLUX (Reported) Donepezil HCl (Aricept) 5 MG TABLET 1 TAB PO QAM (Reported) Hydroxychloroquine Sulfate 200 MG TABLET 1 TAB PO BID (Reported) Levothyroxine Sodium (Synthroid) 112 MCG TABLET 1 TAB PO DAILY HYPOTHYROID ( Reported) Lorazepam (Ativan) 0.5 MG TABLET 0.5 TAB PO BID AGITATION, ANXIETY (Reported) Magnesium Hydroxide (Milk Of Magnesia) 400 MG/5 ML ORAL.SUSP 30 ML PO DAILY PRN CONSTIPATION (Reported) Memantine HCl (Namenda) 10 MG TABLET 5 MG PO BID DEMENTIA (Reported) Mirtazapine (Remeron) 15 MG TABLET 0.5 TAB PO QPM sleep (Reported) Multivitamin (Multivitamins) 1 EACH CAPSULE 1 TAB PO DAILY SUPPLEMENT ( Reported) Na Phos,M-B/Na Phos,Di-Ba (Fleet Enema) 19 GRAM-7 GRAM/118 ML ENEMA 1 E RC ONCE PRN CONSTIPATION (Reported) Quetiapine Fumarate (Seroquel) 25 MG TABLET 0.5 TAB PO BID agitation ( Reported) Quetiapine Fumarate 25 MG TABLET 1 TAB PO QPM DEPRESSION (Reported) Risperidone (Risperdal) 1 MG TABLET 1 TAB PO QPM DEPRESSION (Reported) Sennosides/Docusate Sodium (Senexon-S Tablet) 8.6 MG-50 MG TABLET 1 TAB PO DAILY CONSTIPATION (Reported) Sertraline HCl 50 MG TABLET 1 TAB PO DAILY depression (Reported) Timolol Maleate 0.5 % DROPS 1 GTT OPH QAM GLAUCOMA (Reported) INTO L EYE Trazodone HCl 50 MG TABLET 12.5 TAB PO Q8 PRN agitation (Reported) Past History Travel History Traveled to [place] past 21 day No Medical History Neurological: dementia EENT: glaucoma Cardiovascular: NONE Respiratory: NONE Gastrointestinal: constipation Hepatic: NONE Renal: chronic kidney disease, OBSTRUCTIVE UROPATHY Musculoskeletal: PRESSURE ULCER BUTTOCKS Psychiatric: anxiety, depression Endocrine: hypothyroidism Blood Disorders: NONE Cancer(s): NONE 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 Exam & Diagnostic Data Last 24 Hrs of Vital Signs/I&O Vital Signs Date Time Temp Pulse Resp B/P B/P Pulse O2 O2 Flow FiO2 Mean Ox Delivery Rate 01/29 0039 93 18 120/56 95 Room Air 01/28 2249 97.3 89 14 122/59 95 Room Air 01/281 74 109/53 01/28 2107 98.4 85 22 96/54 95 Room Air 01/28 2105 Room Air Intake & Output 01/29 0800 01/29 0000 01/28 1600 Intake Total Output Total Balance Patient 160 lb Weight Weight Estimated Measurement Method Physical Exam General Appearance Alert, No Acute Distress, Oriented to person. Does not follow commands Skin R pinkish sacral pressure ulcer without drainage Sepsis Skin Exam (color): Normal for Ethnicity HEENT Atraumatic, PERRLA, EOMI, Mucous Membr. moist/pink Neck Supple, No JVD Cardiovascular 2/6 systolic murmur Lungs Clear to Auscultation, Normal Air Movement Abdomen Normal Bowel Sounds, Soft, No Tenderness, Periumbilical surgical scar. Subcutaneous dilaudid pump, skin intact Neurological 2/5 motor strength throughout Extremities Hyperpigmented skin discoloration on R ankle Sepsis Peripheral Pulse Location: Radial Sepsis Peripheral Pulse Exam: Normal Sepsis Cap Refill Exam: <2 Sec Last 24 Hrs of Labs/Black: Laboratory Tests 01/29/18 0008: Lactic Acid Cancelled 01/28/18 2215: Anion Gap 10, Estimated GFR > 60, BUN/Creatinine Ratio 22.5, Glucose 121 H, Lactic Acid 1.0, Calcium 8.8, Iron Pending, TIBC Pending, Ferritin Pending, Total Bilirubin 0.6, AST 19, ALT 24, Alkaline Phosphatase 81, Creatine Kinase Pending, Troponin I < 0.01, C-Reactive Prot, Quant Pending, Total Protein 5.5 L , Albumin 2.7 L, Globulin 2.8, Albumin/Globulin Ratio 1.0 L, Vitamin B12 Pending, Folate Pending, TSH &T3 &Free T4 Intrp Pending, CBC w Diff MAN DIFF ORDERED, RBC 3.13 L, MCV 79.2 L, MCH 26.0 L, MCHC 32.8 L, RDW 17.0 H, MPV 7.8, Gran % 88.1 H, Lymphocytes % 4.6 L, Monocytes % 6.9, Eosinophils % 0, Basophils % 0.4, Absolute Granulocytes 19.5 H, Segmented Neutrophils 84 H, Band Neutrophils 3, Absolute Lymphocytes 1.0 L, Lymphocytes 6 L, Monocytes 7, Absolute Monocytes 1.5 H, Absolute Eosinophils 0, Absolute Basophils 0.1, Platelet Estimate ADEQUATE, Anisocytosis 1+, Microcytic Cells 1+, Retic Count Pending 01/28/185: Urine Opiates Screen < 100, Methadone Screen 43, Barbiturate Screen < 60, Ur Phencyclidine Scrn < 6.00, Amphetamines Screen 279, U Benzodiazepines Scrn 143, Urine Cocaine Screen < 50, Urine Cannabis Screen < 5.00, Urine Color YEL, Urine Clarity HAZY H, Urine pH 8.0, Ur Specific [place] >= 1.030, Urine Protein 30 H , Urine Ketones NEG, Urine Nitrite NEG, Urine Bilirubin NEG, Urine Urobilinogen 0.2, Ur Leukocyte Esterase MOD H, Ur Microscopic SEDIMENT EXAMINED, Urine RBC RARE, Urine WBC 1-3 H, Ur Epithelial Cells RARE, Urine Bacteria MANY H, Urine Mucus RARE, Urine Hemoglobin NEG, Urine Glucose NEG Microbiology 01/29 135 LOWER RESP: Respiratory Culture - ORD 01/29 135 LOWER RESP: Gram Stain - ORD 01/28 2230 BLOOD: Blood Culture - RECD 01/29 2220 BLOOD: Blood Culture - RECD 01/28 2205 URINE ROUT: Urine Culture - RECD Diagnostic Data EKG Results SR, HR 77, QTc 462 CXR Results FINDINGS: Heart size is normal. Pulmonary vascularity is normal. The lungs are hypoexpanded. No focal consolidation or atelectasis is appreciated at this time. There is no pneumothorax or pleural effusion. There is spinal fusion hardware over the lower thoracic and upper lumbar spine. There is degenerative change in the shoulders IMPRESSION: Mildly hypoexpanded but clear lungs with no acute or focal findings Other Results CT HEAD WITHOUT CONTRAST IMPRESSION: No acute intracranial pathology. CT ABDOMEN AND PELVIS WITHOUT CONTRAST IMPRESSION: 1. Limited assessment of intra-abdominal structures due to streak artifact from spinal fusion hardware. 2. Thick-walled appearance of the rectum with mild surrounding stranding; this could reflect a proctitis in the proper clinical setting. Assessment/Plan Assessment: Ms. Ortiz is a 82 yo F with a PMH of anxiety, hypothyroidism, dementia, depression, obstructive uropathy, ESBL and MRSA who presents from [facility] to the ED with a fever of 102.5 and lethargy. According to EMS on arrival, patient was found to be hypotensive, SBP 70s and only responsive to sternal rub. Problem list: Gram-positive bacteremia vs Sepsis History of dementia History of ESBL and MRSA susceptible to Carbapenems Plan: Admit to general med for further evaluation and management IV meropenem to cover ESBL IV clindamycin to cover MRSA (patient allergic to Vancomycin, reaction unknown) Resume home medications except sedatives, reassess in the morning Confirm reason for hydroxychloroquine with nursing facility Pancultures ID consult Wound consult Diet: Heart healthy DVT ppx: sc Enoxaparin Code: DNR/I As Ranked By This Provider Problem List: 1. Bacteremia due to Gram-positive bacteria 2. Sepsis Core Measures/Misc (06/25) Acute Coronary Syndrome ACS Diagnosis: No Congestive Heart Failure Congestive Heart Failure Diagnosis No Cerebrovascular Accident CVA/TIA Diagnosis: No VTE (View Protocol) VTE Risk Factors Age>40 No Mechanical VTE Prophylaxis d/t N/A MechProphylax Ordered No VTE Pharm Prophylaxis d/t NA PharmProphylax ordered Sepsis (View protocol) Sepsis Present: Yes Deysi Brower 01/29/18 0311: Resident Review Statement Resident Statement: examined this patient, discussed with internet database specialist, agreed with internet database specialist, reviewed images, amended to note Other Findings: 82-year-old lady with history of dementia, minimally communicative, bedbound?, anxiety, hyperthyroidism, on hydroxychloroquine due to unknown reasons?, dislocated right femur, Unknown abdominal surgeries and hip replacement with Dilaudid pump nonfunctional on the left side, 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 Patient is a very poor historian and is unable to provide any reliable history. According to the ED staff and a intermediate patient had fever of 101 in the intermediate and episode of lethargy and fatigue. per EMS her systolic blood pressure was around 70s during the transport as well. Patient denies any chest pain, nausea, vomiting, abdominal pain, fevers, chills when questioned. Per nursing facility patient's power of commonwealth attorney, her son was contacted and he requested that patient should be transported to the hospital. According to document in the patient's package patient is DNR/DNI and "do not hospitalize". On arrival patient's systolic blood pressure was less than 100 which was improved with IV bolus hydration therapy and increase to 121/60 with O2 saturation 95% on room air with pulse of 88 and temperature 97.7. During the examination was also informed that patient's 1 of blood culture sets which was around in the morning in the facility is showing gram positive cocci in clusters. Patient has already received IV imipenem in the ED as well. Physical exam was limited Patient was alert 1 Heart 3 out of 6 systolic murmur Chest decreased bilateral breath sounds Abdomen nontender, mildly distended there is a device on the left side of the abdominal wall(nonfunctional Dilaudid pump) Left upper extremity strength 4 out of 5 and patient Full details of physical examination above WBC 22.1, hemoglobin 8.1, MCV 79, sodium 133, lactic acid 1.0, CRP is more than 9, CPK is 160, urine tox showed mildly positive methadone, amphetamine, benzodiazepine UA showed protein 30, leukocyte esterase moderate, WBC 1-3, bacteria many CXR: Mildly hypoexpanded but clear lungs with no acute or focal findings HEAD CT No acute intracranial pathology. abdominal CT: 1. Limited assessment of intra-abdominal structures due to streak artifact from spinal fusion hardware. 2. Thick-walled appearance of the rectum with mild surrounding stranding; this could reflect a proctitis in the proper clinical setting. EKS NSR poor quaily no acute ST- T elavation Assessment AMS Sepsis due to ESBL versus MRSA bacteremia History of UTI ESBL History of MRSA History of depression/dementia History of hypothyroidism Hypotension History of glaucoma Plan Admit to general medicine floor Gentle IV hydration We will put the patient on IV clindamycin(MRSA) and IV meropenem(ESBL) and ask for ID the consultation in the morning Follow blood cultures, sputum cultures, urine culture Wound consult in the morning Hold all of the antipsychotic/anti-depressive medications for now and reassess in the morning, it should be noted this patient is on benzo and it should be restarted as soon as possible as patient altered mental status improved EKG in AM Continue eyedrops for glaucoma Continue p.o. levothyroxine Check iron studies and reticulocyte count Continue hydroxychloroquine and clarify with the intermediate/PCP for the reason for being on hydroxychloroquine DNR/DNI, DVT prophylaxis mechanical and subq Lovenox, Tylenol for pain, heart healthy diet
[2018-01-29] MEDS ORDERED: REMERON15 M2 PO (01:21)
[2018-01-29] MEDS ORDERED: SEROQUEL25 M1 PO (01:22)
[2018-01-29] MEDS ORDERED: SERTRALINE HCL50 MG PO (01:23)
[2018-01-29] MEDS ORDERED: TRAZODONE HCL50 M1 PO (01:31)
[2018-01-29 03:32] VITALS: BP 112/68
[2018-01-29 06:32] VITALS: BP 112/68
--- NOTE | 2018-01-29 08:57 | Cons- Wound Care ---
General Information and HPI Consulting Request Date of Consult: 01/29/18 Requested By: Edward John MD Reason for Consult: Right sacral pressure ulcer present on admission History of Present Illness: Patient is 82-year-old woman noncommunicative admitted because of fever and found to have gram-positive coccus bacteremia. Request is made for evaluation of a sacral decubitus ulcer present on admission. There is no available history as to its duration prior treatment. Allergies/Medications Allergies: Coded Allergies: adhesive (UNKNOWN 12/21/17) celecoxib (UNKNOWN 12/21/17) methotrexate (UNKNOWN 12/21/17) morphine (UNKNOWN 12/21/17) propoxyphene (UNKNOWN 12/21/17) sulfamethazine (UNKNOWN 12/21/17) vancomycin (UNKNOWN 12/21/17) Home Med List: Bimatoprost (Lumigan) 0.01 % DROPS 1 GTT OPH QPM GLAUCOMA (Reported) Bisacodyl (Bisac-Evac) 10 MG SUPP.RECT 1 SUPP [place] DAILY PRN CONSTIPATION ( Reported) IF M.O.M. INEFFECTIVE Brinzolamide/Brimonidine Tart (Simbrinza 1%-0.2% Eye Drops) 1 %-0.2 % DROPS.SUSP 1 DROP OU BID GLAUCOMA (Reported) Calcium Carbonate (TUMS) 200 MG CALCIUM (500 MG) TAB.CHEW 1,200 MG PO QAM REFLUX (Reported) Donepezil HCl (Aricept) 5 MG TABLET 1 TAB PO QAM (Reported) Hydroxychloroquine Sulfate 200 MG TABLET 1 TAB PO BID (Reported) Levothyroxine Sodium (Synthroid) 112 MCG TABLET 1 TAB PO DAILY HYPOTHYROID ( Reported) Lorazepam (Ativan) 0.5 MG TABLET 0.5 TAB PO BID AGITATION, ANXIETY (Reported) Magnesium Hydroxide (Milk Of Magnesia) 400 MG/5 ML ORAL.SUSP 30 ML PO DAILY PRN CONSTIPATION (Reported) Memantine HCl (Namenda) 10 MG TABLET 5 MG PO BID DEMENTIA (Reported) Mirtazapine (Remeron) 15 MG TABLET 0.5 TAB PO QPM sleep (Reported) Multivitamin (Multivitamins) 1 EACH CAPSULE 1 TAB PO DAILY SUPPLEMENT ( Reported) Na Phos,M-B/Na Phos,Di-Ba (Fleet Enema) 19 GRAM-7 GRAM/118 ML ENEMA 1 E RC ONCE PRN CONSTIPATION (Reported) Quetiapine Fumarate (Seroquel) 25 MG TABLET 0.5 TAB PO BID agitation ( Reported) Quetiapine Fumarate 25 MG TABLET 1 TAB PO QPM DEPRESSION (Reported) Risperidone (Risperdal) 1 MG TABLET 1 TAB PO QPM DEPRESSION (Reported) Sennosides/Docusate Sodium (Senexon-S Tablet) 8.6 MG-50 MG TABLET 1 TAB PO DAILY CONSTIPATION (Reported) Sertraline HCl 50 MG TABLET 1 TAB PO DAILY depression (Reported) Timolol Maleate 0.5 % DROPS 1 GTT OPH QAM GLAUCOMA (Reported) INTO L EYE Trazodone HCl 50 MG TABLET 12.5 TAB PO Q8 PRN agitation (Reported) Review of Systems Review of Systems: Unobtainable Past History Travel History Traveled to [place] past 21 day No Medical History Neurological: dementia EENT: glaucoma Cardiovascular: NONE Respiratory: NONE Gastrointestinal: constipation Hepatic: NONE Renal: chronic kidney disease, OBSTRUCTIVE UROPATHY Musculoskeletal: PRESSURE ULCER BUTTOCKS Psychiatric: anxiety, depression Endocrine: hypothyroidism Blood Disorders: NONE Cancer(s): NONE 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 Other Services at Home: None Smoking Status: Unknown If Ever Smoked ETOH Use: denies use Exam & Diagnostic Data Vital Signs and I&O Vital Signs Result Date Time Pulse Ox 98 01/29 0632 B/P 112/68 01/29 0632 O2 Delivery Room Air 01/29 0632 Temp 98.2 01/29 0632 Pulse 97 01/29 0632 Resp 20 01/29 0632 Intake & Output 01/29 0000 01/28 1600 01/28 0800 Intake Total Output Total Balance Patient 160 lb Weight Weight Estimated Measurement Method Exam of the right-sided sacrum shows there to be approximately 8.7 x 0.2 cm ulcer present wound was unable to probe to the time of this exam but is at least a stage III pressure ulcer. It is a strong suspicion for undermining and possible sinus tracking. There is no periwound erythema drainage odor. Patient has evidence of malnutrition based on laboratory testing Assessment/Plan Impression/Plan: 42-year-old admitted with gram-positive bacteremia and found to have a small at least stage III pressure ulcer of the right sacrum. Recommend obtain data from prior jail as to imaging evaluation for osteomyelitis and wound care treatment. Presently would place patient on offloading mattress and offload this area. Patient will be reexamined when probe is available. Wound care can be a dry dressing pending further information regarding the history of this wound. Consult Acknowledgment - Thank you for your consult request.
[2018-01-29 09:02] LABS: PT 14.9 SEC (9.4-12.5)
[2018-01-29 09:13] LABS: ABSOLUTE BASOPHIL COUNT 0 /CUMM (0.0-0.2); ABSOLUTE EOSINOPHIL COUNT 0 /CUMM (0.0-0.7); ABSOLUTE GRANULOCYTE CT 12.2 /CUMM (1.4-6.5); ABSOLUTE LYMPH COUNT 0.5 /CUMM (1.2-3.4); BASOPHIL % 0.2 % (0.0-2.0); EOSINOPHIL % 0 % (0-5); GRANULOCYTE % 88.7 % (42.2-75.2); HEMATOCRIT 24.3 % (37-47); MEAN CORPUSCULAR HGB 26.1 PG (27.0-31.0); MEAN CORPUSCULAR HGB CONC 32.7 G/DL (33.0-37.0); MEAN CORPUSCULAR VOLUME 79.9 FL (81.0-99.0); MEAN PLATELET VOLUME 7.8 FL (7.4-10.4); PLATELET COUNT 365 /CUMM (130-400); RBC DISTRIBUTION WIDTH 16.8 % (11.5-14.5); RED BLOOD CELL CT 3.05 /CUMM (4.20-5.40); WHITE BLOOD CELL COUNT 13.7 /CUMM (4.8-10.8)
--- NOTE | 2018-01-29 10:17 | PN- Housestaff ---
Subjective Follow-up For: Sepsis with gram-positive bacteremia Gram positive ucx in setting of chronic cho AMS ?Protctitis Anemia History of UTI ESBL History of MRSA History of depression/dementia History of hypothyroidism Hypotension History of glaucoma Subjective: No acute events overnight. Patient was sleeping until afternoon. Responding approriately to questions. Starting to become somewhat agitated. Review of Systems Constitutional: Reports: see HPI. Objective Last 24 Hrs of Vital Signs/I&O Vital Signs Date Time Temp Pulse Resp B/P B/P Pulse O2 O2 Flow FiO2 Mean Ox Delivery Rate 01/29 1429 103.0 108 18 110/50 94 01/29 1420 103.1 01/29 0632 98.2 97 20 112/68 98 Room Air 01/29 0438 97 Room Air 01/29 0332 98.2 97 20 112/68 98 Room Air 01/29 0244 97.7 88 16 121/60 95 Room Air 01/29 0039 93 18 120/56 95 Room Air 01/28 2249 97.3 89 14 122/59 95 Room Air 01/28 2221 74 109/53 01/28 2107 98.4 85 22 96/54 95 Room Air 01/28 2105 Room Air Intake & Output 01/29 1600 01/29 0800 01/29 0000 Intake Total 1000 2450 Output Total 2000 Balance 1000 450 Intake, IV 800 2450 Intake, Oral 200 Number 0 Bowel Movements Output, Urine 2000 Patient 160 lb 160 lb Weight Weight Estimated Estimated Measurement Method Physical Exam General Appearance: Alert, Mild Distress, mildly agitated Cardiovascular: mild tachycardia Lungs: decreased breath sounds Abdomen: Normal Bowel Sounds, Soft, No Tenderness Extremities: 2+ radial pulses Current Medications: Current Medications Sig/Rosa Start time Last Medication Dose Route Stop Time Status Admin Acetaminophen 650 MG Q6P PRN 01/29 0130 AC 01/29 PO 1420 Calcium Carbonate 1,250 MG QAM 01/29 09 DC PO Calcium Carbonate 1,250 MG QAM 01/29 0900 AC 01/29 PO 0835 Clindamycin 600 MG IQ8 01/29 1000 AC 01/29 Dextrose/Water 50 ML IV 0835 Clindamycin 600 MG ONCE ONE 01/29 0230 DC 01/29 Dextrose/Water 50 ML IV 01/29 0259 0257 Enoxaparin Sodium 40 MG DAILY 01/29 09 AC 01/29 SC 0835 Hydroxychloroquine 200 MG BID 01/29 09 AC 01/29 Sulfate PO 0835 Imipenem/Cilastatin 500 MG 0200 01/29 0200 DC 01/29 Sodium IV 01/29 0300 0201 Imipenem/Cilastatin 500 MG ONCE 01/28 2300 DC Sodium IV 01/29 030 Latanoprost 1 GTT AT BEDTIME 01/29 2100 AC OPH Levothyroxine Sodium 0.112 MG DAILY 01/29 09 AC 01/29 PO 0835 Lorazepam 0.5 MG AT BEDTIME 01/29 2100 AC PO 02/05 2059 Meropenem 1 GM IQ8 01/29 08 AC 01/29 IV 0834 Non-Formulary 0 SEE ADMIN CRITERIA 01/29 0145 UNV Medication ANY Sodium Chloride 1,000 ML Q20H 01/29 300 AC 01/29 IV 01/29 Sodium Chloride 2,177.25 ML ONCE ONE 01/28 2115 DC 01/28 IV 01/28 Timolol Maleate 1 GTT QAM 01/29 900 AC 01/29 OPH 0836 Last 24 Hrs of Lab/Black Results Last 24 Hrs of Labs/Mics: Laboratory Tests 01/29/18821: Anion Gap 11, Estimated GFR > 60, BUN/Creatinine Ratio 26.7 H, PT 14.9 H, INR 1.36 H, CBC w Diff MAN DIFF ORDERED, RBC 3.05 L, MCV 79.9 L, MCH 26.1 L, MCHC 32.7 L, RDW 16.8 H, MPV 7.8, Gran % 88.7 H, Lymphocytes % 4.0 L, Monocytes % 7.1, Eosinophils % 0, Basophils % 0.2, Absolute Granulocytes 12.2 H , Segmented Neutrophils 84 H, Band Neutrophils 6 H, Absolute Lymphocytes 0.5 L, Lymphocytes 2 L, Monocytes 7, Absolute Monocytes 1.0 H, Absolute Eosinophils 0, Basophils 1, Absolute Basophils 0, Platelet Estimate VERIFIED BY SMEAR, Anisocytosis 1+ 01/29/18 0008: Lactic Acid Cancelled 01/28/182214: Anion Gap 10, Estimated GFR > 60, BUN/Creatinine Ratio 22.5, Glucose 121 H, Lactic Acid 1.0, Calcium 8.8, Iron 21 L, TIBC 280, Ferritin 93.4, Total Bilirubin 0.6, AST 19, ALT 24, Alkaline Phosphatase 81, Creatine Kinase 160 H, Troponin I < 0.01, C-Reactive Prot, Quant > 9.0 H, Total Protein 5.5 L, Albumin 2.7 L, Globulin 2.8, Albumin/Globulin Ratio 1.0 L, Vitamin B12 703, Folate 11.9, Free T4 1.42, Total T3 0.56 L, TSH &T3 &Free T4 Intrp 7.260 H, CBC w Diff MAN DIFF ORDERED, RBC 3.13 L, MCV 79.2 L, MCH 26.0 L, MCHC 32.8 L , RDW 17.0 H, MPV 7.8, Gran % 88.1 H, Lymphocytes % 4.6 L, Monocytes % 6.9, Eosinophils % 0, Basophils % 0.4, Absolute Granulocytes 19.5 H, Segmented Neutrophils 84 H, Band Neutrophils 3, Absolute Lymphocytes 1.0 L, Lymphocytes 6 L, Monocytes 7, Absolute Monocytes 1.5 H, Absolute Eosinophils 0, Absolute Basophils 0.1, Platelet Estimate ADEQUATE, Anisocytosis 1+, Microcytic Cells 1+, Retic Count 2.41 H 01/28/182204: Urine Opiates Screen < 100, Methadone Screen 43, Barbiturate Screen < 60, Ur Phencyclidine Scrn < 6.00, Amphetamines Screen 279, U Benzodiazepines Scrn 143, Urine Cocaine Screen < 50, Urine Cannabis Screen < 5.00, Urine Color YEL, Urine Clarity HAZY H, Urine pH 8.0, Ur Specific [place] >= 1.030, Urine Protein 30 H , Urine Ketones NEG, Urine Nitrite NEG, Urine Bilirubin NEG, Urine Urobilinogen 0.2, Ur Leukocyte Esterase MOD H, Ur Microscopic SEDIMENT EXAMINED, Urine RBC RARE, Urine WBC 1-3 H, Ur Epithelial Cells RARE, Urine Bacteria MANY H, Urine Mucus RARE, Urine Hemoglobin NEG, Urine Glucose NEG Microbiology 01/29 135 LOWER RESP: Respiratory Culture - COLB 01/29 135 LOWER RESP: Gram Stain - COLB 01/28 2230 BLOOD: Blood Culture - RES 01/29 2220 BLOOD: Blood Culture - RES GRAM POSITIVE COCCI 01/28 2205 URINE ROUT: Urine Culture - RES GRAM NEGATIVE RODS Assessment/Plan Assessment: 82 yo F with a PMH of anxiety, hypothyroidism, dementia, depression, obstructive uropathy, ESBL and MRSA who presents from [facility] to the ED with a fever of 102.5 and lethargy. According to EMS on arrival, patient was found to be hypotensive, SBP 70s and only responsive to sternal rub. Problem list: Sepsis with gram-positive bacteremia Gram positive ucx in setting of chronic cho AMS ?Protctitis Anemia History of UTI ESBL History of MRSA History of depression/dementia History of hypothyroidism Hypotension History of glaucoma Plan: -holding antipsychotic/anti-depressive medications. restart as mental status improves -monitor H/H (7.8/24.3). normal iron studies. elevated retic -consider endo consult as T3 low and TSH high -restart benzos as patient now becoming agitated and more alert -cont wound care and f/u wound care/imaging records -f/u ID recommendations -cont IV meropenem to cover ESBL and IV clindamycin to cover MRSA (patient allergic to Vancomycin, reaction unknown) for now -Confirm reason for hydroxychloroquine with nursing facility -discuss with family regarding end of care issues -f/u pancultures -monitor electrolytes and replnish as needed -LA 1.0, -CK 160, CRP >9 -CXR, head CT negative -CT abd - Thick-walled appearance of the rectum with mild surrounding stranding; this could reflect a proctitis in the proper clinical setting DVT ppx: sc Enoxaparin Code: DNR/I Problem List: 1. Bacteremia due to Gram-positive bacteria 2. Altered mental status 3. Sepsis Pain Ratin Pain Location: none Pain Goal: Remain pain free Pain Plan: pathway Tomorrow's Labs & Rationales: cbc bep
--- NOTE | 2018-01-29 10:40 | Admission Certification ---
Admission Certification Certification Statement - As attending physician, I certify that at the time of - admission, based on clinical presentation, severity of - symptoms, need for further diagnostic testing and - therapeutic interventions, and risk of adverse outcomes - without in-hospital treatment, in my clinical assessment, - this patient requires an acute hospital stay for a minimum - of two nights or longer. I have also considered psychsocial - factors such as support system, advanced age, financial - issues, cognitive issues, and failed out-patient treatments, - past re-admission history, safety of patient, and lack of - compliance as applicable. Specific rationale supporting this admission is: Fever, change in mental status, hypotension, history of sacral ulcer
--- NOTE | 2018-01-29 10:46 | PN- Att Addend ---
Attending Addendum Attending Brief Note 82-year-old white female resident of [facility]. Patient has several comorbidities had been treated for his sacral decubitus at one time she had a vac, now treated medically. Apparently she had a fever for 2 days. The day of admission she became less responsive obtundent her blood pressure was lower than usual and was sent to the emergency room for evaluation. Or cultures were obtained lactic acid was obtained. White count 22,100 blood cultures obtained earlier showed gram-positive in clusters. Patient was started on IV antibiotics and admitted to the floor. Her white count this morning is down. Appreciate is probably back to her baseline mental status will obtain an infectious disease consultation to assess antibiotic therapy and also [facility] to follow her sacral de cubitus was present on admission. 24 TOTALS 01/29 0000 01/28 0000 Intake Total Output Total Balance Patient 160 lb Weight Weight Estimated Measurement Method Current Medications Sig/Rosa Start time Last Medication Dose Route Stop Time Status Admin Acetaminophen 650 MG Q6P PRN 01/29 0130 AC PO Calcium Carbonate 1,250 MG QAM 01/29 09 DC PO Calcium Carbonate 1,250 MG QAM 01/29 0900 AC 01/29 PO 0835 Clindamycin 600 MG IQ8 01/29 1000 AC 01/29 Dextrose/Water 50 ML IV 0835 Clindamycin 600 MG ONCE ONE 01/29 0230 DC 01/29 Dextrose/Water 50 ML IV 01/29 0259 0257 Enoxaparin Sodium 40 MG DAILY 01/29 0900 AC 01/29 SC 0835 Hydroxychloroquine 200 MG BID 01/29 0900 AC 01/29 Sulfate PO 0835 Imipenem/Cilastatin 500 MG 0200 01/29 0200 DC 01/29 Sodium IV 01/29 0300 0201 Imipenem/Cilastatin 500 MG ONCE 01/28 2300 DC Sodium IV 01/29 0300 Latanoprost 1 GTT AT BEDTIME 01/29 2100 AC OPH Levothyroxine Sodium 0.112 MG DAILY 01/29 09 AC 01/29 PO 0835 Meropenem 1 GM IQ8 01/29 0800 AC 01/29 IV 0834 Non-Formulary 0 SEE ADMIN CRITERIA 01/29 0145 UNV Medication ANY Sodium Chloride 1,000 ML Q20H 01/29 0300 AC 01/29 IV 01/29 2259 0417 Sodium Chloride 2,177.25 ML ONCE ONE 01/28 2115 DC 01/28 IV 01/28 Timolol Maleate 1 GTT QAM 01/29 0900 AC 01/29 OPH 0836 Laboratory Tests 01/29/18 0822: Anion Gap 11, Estimated GFR > 60, BUN/Creatinine Ratio 26.7 H, PT 14.9 H, INR 1.36 H, CBC w Diff MAN DIFF ORDERED, RBC 3.05 L, MCV 79.9 L, MCH 26.1 L, MCHC 32.7 L, RDW 16.8 H, MPV 7.8, Gran % 88.7 H, Lymphocytes % 4.0 L, Monocytes % 7.1, Eosinophils % 0, Basophils % 0.2, Absolute Granulocytes 12.2 H , Segmented Neutrophils 84 H, Band Neutrophils 6 H, Absolute Lymphocytes 0.5 L, Lymphocytes 2 L, Monocytes 7, Absolute Monocytes 1.0 H, Absolute Eosinophils 0, Basophils 1, Absolute Basophils 0, Platelet Estimate VERIFIED BY SMEAR, Anisocytosis 1+ 01/29/18 0008: Lactic Acid Cancelled 01/28/18 2215: Anion Gap 10, Estimated GFR > 60, BUN/Creatinine Ratio 22.5, Glucose 121 H, Lactic Acid 1.0, Calcium 8.8, Iron 21 L, TIBC 280, Ferritin 93.4, Total Bilirubin 0.6, AST 19, ALT 24, Alkaline Phosphatase 81, Creatine Kinase 160 H, Troponin I < 0.01, C-Reactive Prot, Quant > 9.0 H, Total Protein 5.5 L, Albumin 2.7 L, Globulin 2.8, Albumin/Globulin Ratio 1.0 L, Vitamin B12 703, Folate 11.9, Free T4 1.42, Total T3 0.56 L, TSH &T3 &Free T4 Intrp 7.260 H, CBC w Diff MAN DIFF ORDERED, RBC 3.13 L, MCV 79.2 L, MCH 26.0 L, MCHC 32.8 L , RDW 17.0 H, MPV 7.8, Gran % 88.1 H, Lymphocytes % 4.6 L, Monocytes % 6.9, Eosinophils % 0, Basophils % 0.4, Absolute Granulocytes 19.5 H, Segmented Neutrophils 84 H, Band Neutrophils 3, Absolute Lymphocytes 1.0 L, Lymphocytes 6 L, Monocytes 7, Absolute Monocytes 1.5 H, Absolute Eosinophils 0, Absolute Basophils 0.1, Platelet Estimate ADEQUATE, Anisocytosis 1+, Microcytic Cells 1+, Retic Count 2.41 H 01/28/182204: Urine Opiates Screen < 100, Methadone Screen 43, Barbiturate Screen < 60, Ur Phencyclidine Scrn < 6.00, Amphetamines Screen 279, U Benzodiazepines Scrn 143, Urine Cocaine Screen < 50, Urine Cannabis Screen < 5.00, Urine Color YEL, Urine Clarity HAZY H, Urine pH 8.0, Ur Specific [place] >= 1.030, Urine Protein 30 H , Urine Ketones NEG, Urine Nitrite NEG, Urine Bilirubin NEG, Urine Urobilinogen 0.2, Ur Leukocyte Esterase MOD H, Ur Microscopic SEDIMENT EXAMINED, Urine RBC RARE, Urine WBC 1-3 H, Ur Epithelial Cells RARE, Urine Bacteria MANY H, Urine Mucus RARE, Urine Hemoglobin NEG, Urine Glucose NEG Vital Signs Date Time Temp Pulse Resp B/P B/P Pulse O2 O2 Flow FiO2 Mean Ox Delivery Rate 01/29 0632 98.2 97 20 112/68 98 Room Air 01/29 0438 97 Room Air 01/29 0332 98.2 97 20 112/68 98 Room Air 01/29 0244 97.7 88 16 121/60 95 Room Air 01/29 0039 93 18 120/56 95 Room Air 01/28 2249 97.3 89 14 122/59 95 Room Air 01/28 2221 74 109/53 01/28 2107 98.4 85 22 96/54 95 Room Air 01/28 2105 Room Air
[2018-01-29 14:29] VITALS: BP 110/50
--- NOTE | 2018-01-29 18:28 | Cons- Infect Disease ---
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 On admission she was afebrile. Laboratory data revealed a white blood cell count of 22,000, H&H 8 and 25, BUN/creatinine 9 and 0.4, with normal liver enzymes, CPK 160. Urinalysis rare RBCs/3-5 WBCs. Chest x-ray was negative. CT of the head was negative. CT of the abdomen and pelvis revealed a right hip arthroplasty, with superior dislocation of the femoral head component; thick-walled rectum with mild surrounding stranding. She was begun on Clindamycin and Meropenem. This afternoon blood cultures from admission were reported positive for gram-positive cocci in clusters. She spiked a fever to 103.1 this afternoon but her white blood cell count has decreased. She complains of back pain but is unable to provide any history otherwise. Allergies/Medications Allergies: Coded Allergies: adhesive (UNKNOWN 12/21/17) celecoxib (UNKNOWN 12/21/17) methotrexate (UNKNOWN 12/21/17) morphine (UNKNOWN 12/21/17) propoxyphene (UNKNOWN 12/21/17) sulfamethazine (UNKNOWN 12/21/17) vancomycin (UNKNOWN 12/21/17) Home Med List: Bimatoprost (Lumigan) 0.01 % DROPS 1 GTT OPH QPM GLAUCOMA (Reported) Bisacodyl (Bisac-Evac) 10 MG SUPP.RECT 1 SUPP [place] DAILY PRN CONSTIPATION ( Reported) IF M.O.M. INEFFECTIVE Brinzolamide/Brimonidine Tart (Simbrinza 1%-0.2% Eye Drops) 1 %-0.2 % DROPS.SUSP 1 DROP OU BID GLAUCOMA (Reported) Calcium Carbonate (TUMS) 200 MG CALCIUM (500 MG) TAB.CHEW 1,200 MG PO QAM REFLUX (Reported) Donepezil HCl (Aricept) 5 MG TABLET 1 TAB PO QAM (Reported) Hydroxychloroquine Sulfate 200 MG TABLET 1 TAB PO BID (Reported) Levothyroxine Sodium (Synthroid) 112 MCG TABLET 1 TAB PO DAILY HYPOTHYROID ( Reported) Lorazepam (Ativan) 0.5 MG TABLET 0.5 TAB PO BID AGITATION, ANXIETY (Reported) Magnesium Hydroxide (Milk Of Magnesia) 400 MG/5 ML ORAL.SUSP 30 ML PO DAILY PRN CONSTIPATION (Reported) Memantine HCl (Namenda) 10 MG TABLET 5 MG PO BID DEMENTIA (Reported) Mirtazapine (Remeron) 15 MG TABLET 0.5 TAB PO QPM sleep (Reported) Multivitamin (Multivitamins) 1 EACH CAPSULE 1 TAB PO DAILY SUPPLEMENT ( Reported) Na Phos,M-B/Na Phos,Di-Ba (Fleet Enema) 19 GRAM-7 GRAM/118 ML ENEMA 1 E RC ONCE PRN CONSTIPATION (Reported) Quetiapine Fumarate (Seroquel) 25 MG TABLET 0.5 TAB PO BID agitation ( Reported) Quetiapine Fumarate 25 MG TABLET 1 TAB PO QPM DEPRESSION (Reported) Risperidone (Risperdal) 1 MG TABLET 1 TAB PO QPM DEPRESSION (Reported) Sennosides/Docusate Sodium (Senexon-S Tablet) 8.6 MG-50 MG TABLET 1 TAB PO DAILY CONSTIPATION (Reported) Sertraline HCl 50 MG TABLET 1 TAB PO DAILY depression (Reported) Timolol Maleate 0.5 % DROPS 1 GTT OPH QAM GLAUCOMA (Reported) INTO L EYE Trazodone HCl 50 MG TABLET 12.5 TAB PO Q8 PRN agitation (Reported) Past History Travel History Traveled to [place] past 21 day No Medical History Neurological: dementia EENT: glaucoma Cardiovascular: NONE Respiratory: NONE Gastrointestinal: constipation Hepatic: NONE Renal: chronic kidney disease, OBSTRUCTIVE UROPATHY Musculoskeletal: PRESSURE ULCER BUTTOCKS Psychiatric: anxiety, depression Endocrine: hypothyroidism Blood Disorders: NONE Cancer(s): NONE 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 Other Services at Home: None Smoking Status: Unknown If Ever Smoked ETOH Use: denies use Review of Systems Review of Systems Musculoskeletal: Reports: back pain. All Other Systems: Reviewed and Negative Exam & Diagnostic Data Last 24 Hrs of Vital Signs/I&O Vital Signs Date Time Temp Pulse Resp B/P B/P Pulse O2 O2 Flow FiO2 Mean Ox Delivery Rate 01/29 1630 100.9 01/29 1543 Room Air 01/29 1429 103.0 108 18 110/50 94 01/29 1420 103.1 01/29 0632 98.2 97 20 112/68 98 Room Air 01/29 0438 97 Room Air 01/29 0332 98.2 97 20 112/68 98 Room Air 01/29 0244 97.7 88 16 121/60 95 Room Air 01/29 0039 93 18 120/56 95 Room Air 01/28 2249 97.3 89 14 122/59 95 Room Air 01/28 2221 74 109/53 01/28 2107 98.4 85 22 96/54 95 Room Air 01/28 2105 Room Air Intake & Output 01/29 1600 01/29 0800 01/29 0000 Intake Total 1000 2450 Output Total 2000 Balance 1000 450 Intake, IV 800 2450 Intake, Oral 200 Number 0 Bowel Movements Output, Urine 2000 Patient 160 lb 160 lb Weight Weight Estimated Estimated Measurement Method Physical Exam Other Physical Findings: MAXIMUM TEMPERATURE 103.1. She is awake and alert, confused and disoriented, but in no acute distress. Skin reveals no rash. HEENT negative. Neck is supple with no adenopathy. Lungs are clear. Heart regular rhythm with a 2/6 systolic ejection murmur. Abdomen is soft, nontender with positive bowel sounds; left lower quadrant pain pump palpable with no overlying inflammation. Back stage II right sided sacral decubitus, with no surrounding inflammation; no obvious CVA tenderness. Extremities dislocated right hip, with no overlying inflammation; no cyanosis, clubbing or edema of the lower extremities. Neuro is without focality. Winters catheter is in place. Last 24 Hours of Lab Results: Laboratory Tests 01/29 01/29 0822 0008 Chemistry Sodium (137 - 145 mmol/L) 142 Potassium (3.5 - 5.1 mmol/L) 3.3 L Chloride (98 - 107 mmol/L) 108 H Carbon Dioxide (22 - 30 mmol/L) 24 Anion Gap (5 - 16) 11 BUN (7 - 17 mg/dL) 8 Creatinine (0.5 - 1.0 mg/dL) 0.3 L Estimated GFR (>60 ml/min) > 60 BUN/Creatinine Ratio (7 - 25 %) 26.7 H Lactic Acid Cancelled Coagulation PT (9.4 - 12.5 SEC) 14.9 H INR (0.90 - 1.19) 1.36 H Hematology CBC w Diff MAN DIFF ORDERED WBC (4.8 - 10.8 /CUMM) 13.7 H RBC (4.20 - 5.40 /CUMM) 3.05 L Hgb (12.0 - 16.0 G/DL) 7.9 L Hct (37 - 47 %) 24.3 L MCV (81.0 - 99.0 FL) 79.9 L MCH (27.0 - 31.0 PG) 26.1 L MCHC (33.0 - 37.0 G/DL) 32.7 L RDW (11.5 - 14.5 %) 16.8 H Plt Count (130 - 400 /CUMM) 365 MPV (7.4 - 10.4 FL) 7.8 Gran % (42.2 - 75.2 %) 88.7 H Lymphocytes % (20.5 - 51.1 %) 4.0 L Monocytes % (1.7 - 9.3 %) 7.1 Eosinophils % (0 - 5 %) 0 Basophils % (0.0 - 2.0 %) 0.2 Absolute Granulocytes (1.4 - 6.5 /CUMM) 12.2 H Segmented Neutrophils (42.2 - 75.2 %) 84 H Band Neutrophils (0.0 - 5.0 %) 6 H Absolute Lymphocytes (1.2 - 3.4 /CUMM) 0.5 L Lymphocytes (20.5 - 51.1 %) 2 L Monocytes (1.7 - 9.3 %) 7 Absolute Monocytes (0.10 - 0.60 /CUMM) 1.0 H Absolute Eosinophils (0.0 - 0.7 /CUMM) 0 Basophils (0.0 - 2.0 %) 1 Absolute Basophils (0.0 - 0.2 /CUMM) 0 Platelet Estimate (ADEQUATE) VERIFIED BY SMEAR Anisocytosis 1+ 01/28 2215 Chemistry Sodium (137 - 145 mmol/L) 133 L Potassium (3.5 - 5.1 mmol/L) 3.5 Chloride (98 - 107 mmol/L) 99 Carbon Dioxide (22 - 30 mmol/L) 24 Anion Gap (5 - 16) 10 BUN (7 - 17 mg/dL) 9 Creatinine (0.5 - 1.0 mg/dL) 0.4 L Estimated GFR (>60 ml/min) > 60 BUN/Creatinine Ratio (7 - 25 %) 22.5 Glucose (65 - 99 mg/dL) 121 H Lactic Acid (0.7 - 2.1 mmol/L) 1.0 Calcium (8.4 - 10.2 mg/dL) 8.8 Iron (37 - 170 ug/dL) 21 L TIBC (265 - 497 ug/dL) 280 Ferritin (11.1 - 264 ng/mL) 93.4 Total Bilirubin (0.2 - 1.3 mg/dL) 0.6 AST (14 - 36 U/L) 19 ALT (9 - 52 U/L) 24 Alkaline Phosphatase (<127 U/L) 81 Creatine Kinase (30 - 135 U/L) 160 H Troponin I (< 0.11 ng/ml) < 0.01 C-Reactive Prot, Quant (<1.0 mg/dL) > 9.0 H Total Protein (6.3 - 8.2 g/dL) 5.5 L Albumin (3.5 - 5.0 g/dL) 2.7 L Globulin (1.9 - 4.2 gm/dL) 2.8 Albumin/Globulin Ratio (1.1 - 2.2 %) 1.0 L Vitamin B12 (239 - 931 pg/mL) 703 Folate (2.76 - 20.0 ng/mL) 11.9 Free T4 (0.85 - 1.93 ng/dL) 1.42 Total T3 (0.97 - 1.69 ng/mL) 0.56 L TSH &T3 &Free T4 Intrp (0.270 - 4.20 uIU/mL) 7.260 H Hematology CBC w Diff MAN DIFF ORDERED WBC (4.8 - 10.8 /CUMM) 22.1 H RBC (4.20 - 5.40 /CUMM) 3.13 L Hgb (12.0 - 16.0 G/DL) 8.1 L Hct (37 - 47 %) 24.8 L MCV (81.0 - 99.0 FL) 79.2 L MCH (27.0 - 31.0 PG) 26.0 L MCHC (33.0 - 37.0 G/DL) 32.8 L RDW (11.5 - 14.5 %) 17.0 H Plt Count (130 - 400 /CUMM) 323 MPV (7.4 - 10.4 FL) 7.8 Gran % (42.2 - 75.2 %) 88.1 H Lymphocytes % (20.5 - 51.1 %) 4.6 L Monocytes % (1.7 - 9.3 %) 6.9 Eosinophils % (0 - 5 %) 0 Basophils % (0.0 - 2.0 %) 0.4 Absolute Granulocytes (1.4 - 6.5 /CUMM) 19.5 H Segmented Neutrophils (42.2 - 75.2 %) 84 H Band Neutrophils (0.0 - 5.0 %) 3 Absolute Lymphocytes (1.2 - 3.4 /CUMM) 1.0 L Lymphocytes (20.5 - 51.1 %) 6 L Monocytes (1.7 - 9.3 %) 7 Absolute Monocytes (0.10 - 0.60 /CUMM) 1.5 H Absolute Eosinophils (0.0 - 0.7 /CUMM) 0 Absolute Basophils (0.0 - 0.2 /CUMM) 0.1 Platelet Estimate (ADEQUATE) ADEQUATE Anisocytosis 1+ Microcytic Cells 1+ Retic Count (0.5 - 2.0 %) 2.41 H 01/28 2205 Toxicology Urine Opiates Screen (>2000 NG/ML) < 100 Methadone Screen (>300 NG/ML) 43 Barbiturate Screen (>200 NG/ML) < 60 Ur Phencyclidine Scrn (>25 NG/ML) < 6.00 Amphetamines Screen (>1000 NG/ML) 279 U Benzodiazepines Scrn (>200 NG/ML) 143 Urine Cocaine Screen (>300 NG/ML) < 50 Urine Cannabis Screen (>50 NG/ML) < 5.00 Urines Urine Color (YEL,AMB,STR) YEL Urine Clarity (CLEAR) HAZY H Urine pH (5.0 - 8.0) 8.0 Ur Specific [place] (1.001 - 1.035) >= 1.030 Urine Protein (NEG,<30 MG/DL) 30 H Urine Ketones (NEG) NEG Urine Nitrite (NEG) NEG Urine Bilirubin (NEG) NEG Urine Urobilinogen (0.1 - 1.0 EU/dl) 0.2 Ur Leukocyte Esterase (NEG) MOD H Ur Microscopic SEDIMENT EXAMINED Urine RBC (0 - 5 /HPF) RARE Urine WBC (0 - 2 /HPF) 1-3 H Ur Epithelial Cells (NONE,FEW) RARE Urine Bacteria (NEG/NONE) MANY H Urine Mucus (FEW,NONE) RARE Urine Hemoglobin (NEG) NEG Urine Glucose (N MG/DL) NEG Last 24 Hours of Black Results: Blood cultures 4 January 28 (2 from the senior care and 2 from the ER) positive for gram-positive cocci in clusters Urine culture January 28 greater than 100,000 colonies of gram-negative rods Diagnostic Data Recent Imaging Findings: Chest x-ray January [address] of the head January [address] of the abdomen and pelvis January 28 reveals a right hip arthroplasty with superior dislocation of the femoral head component; thick-walled appearance of the rectum with mild surrounding stranding Assessment/Plan Assessment/Plan Impression: This is an 82-year-old woman, senior care resident, with a history of dementia, chronic pain, with a pain pump in the left lower quadrant, not used for a number of years, sacral decubitus of unknown duration, recurrent urinary tract infections, treated with multiple courses of antibiotics, 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 The source of her sepsis is unclear. Given the history of a nonhealing wound over the right hip and hip dislocation feel that an infection of her right hip prosthesis must be ruled out, though she has no overlying inflammation to suggest this. Her sacral decubitus does not appear infected and, therefore, seems unlikely to be the source. The left lower quadrant pain pump is also without overlying inflammation and, therefore, also unlikely to explain her sepsis. I suspect that the organism will prove to be Staph aureus, possibly MRSA given her history of this, and endocarditis will also need to be ruled out. Her Vancomycin allergy cannot be substantiated. Have attempted to obtain further history from [facility] as well as her son, neither of whom have any details and the patient is unable to provide any history. Have reached out to her orthopedic group (Juan Ingram MD) for more information as her surgery was apparently done at [facility] by . Her positive urine culture is likely a contaminant with a negative urinalysis and with no evidence of obstruction on the recent CT scan. Suggestion: 1. Will attempt to obtain further information regarding her Vancomycin allergy 2. Would pursue a right hip arthrocentesis (keep NPO after midnight and hold Lovenox) and will discuss with IR in the a.m. 3. Repeat blood cultures 2 in the AM 4. Echocardiogram 5. Discontinue Clindamycin and Meropenem 6. Begin Vancomycin 1 g IV every 24 hours, with close monitoring during her first dose Consult Acknowledgment - Thank you for your consult request.
--- NOTE | 2018-01-29 20:02 | Event Note ---
Event Note Event Note: Discussed with Juan Alberto Lovell MD patient will receive IV vancomycin 1 g every 24 hours. Type of reaction is unknown. Will monitor closely for any reaction. Signout has been provided to night team. Patient will be nothing by mouth at midnight for possible IR procedure in the morning. Lovenox has been discontinued. I have also discontinued meropenem and clindamycin as per ID recommendations
[2018-01-29 21:56] VITALS: BP 126/58
[2018-01-29 22:25] VITALS: BP 136/70
[2018-01-30 05:42] VITALS: BP 140/60
--- NOTE | 2018-01-30 07:16 | PN- Housestaff ---
Subjective Follow-up For: Sepsis with gram-positive bacteremia AMS Anemia History of UTI ESBL History of MRSA Complaints: no complaints Subjective: No overnight events. Patient said she slept okay. Able to follow some of the commands. Oriented 2. Review of Systems Constitutional: Reports: no symptoms. EENTM: Reports: see HPI. Objective Last 24 Hrs of Vital Signs/I&O Vital Signs Date Time Temp Pulse Resp B/P B/P Pulse O2 O2 Flow FiO2 Mean Ox Delivery Rate 01/30 0542 98.4 96 20 140/60 96 Room Air 01/30 0035 99.0 01/29 2248 102.9 01/29 2248 102.9 01/29 2225 100 18 136/70 94 Room Air 01/29 2156 102.5 103 18 126/58 95 Room Air 01/29 2112 102.5 01/29 2100 102.5 01/29 1930 99.8 01/29 1630 100.9 01/29 1543 Room Air 01/29 1429 103.0 108 18 110/50 94 01/29 1420 103.1 Intake & Output 01/30 1600 01/30 0800 01/30 0000 Intake Total 240 1000 Output Total 300 Balance -60 1000 Intake, IV 400 Intake, Oral 240 600 Output, Urine 300 Physical Exam General Appearance: Alert, Cooperative, No Acute Distress Cardiovascular: Regular Rate, Normal S1, Normal S2, No Murmurs Lungs: Clear to Auscultation Abdomen: Soft, No Tenderness Extremities: right hip-an open 1 cm wound seen with no redness/warmth/discharge. Left hip-stage I skin tear seen. Current Medications: Current Medications Sig/Rosa Start time Last Medication Dose Route Stop Time Status Admin Acetaminophen 650 MG Q6P PRN 01/29 0130 AC 01/29 PO 211 Calcium Carbonate 1,250 MG QAM 01/29 09 AC 01/29 PO 0835 Clindamycin 600 MG IQ8 01/29 1000 DC 01/29 Dextrose/Water 50 ML IV 1551 Enoxaparin Sodium 40 MG DAILY 01/29 09 DC 01/29 SC 0835 Hydroxychloroquine 200 MG BID 01/29 900 AC 01/29 Sulfate PO 1930 Latanoprost 1 GTT AT BEDTIME 01/29 2100 AC 01/29 OPH 1930 Levothyroxine Sodium 0.112 MG DAILY 01/29 0900 AC 01/30 PO 0810 Lorazepam 0.5 MG AT BEDTIME 01/29 2100 AC 01/29 PO 02/05 2059 1930 Meropenem 1 GM IQ8 01/29 0800 DC 01/29 IV 1551 Non-Formulary 0 SEE ADMIN CRITERIA 01/29 0145 UNV Medication ANY Potassium Chloride 10 MEQ Q1H 01/29 1445 DC 01/29 IV 01/29 1546 1701 Sodium Chloride 1,000 ML Q20H 01/30 0800 AC 01/30 IV 01/31 0359 0803 Sodium Chloride 1,000 ML Q20H 01/29 0300 DC 01/29 IV 01/29 2259 0417 Timolol Maleate 1 GTT QAM 01/29 0900 AC 01/29 OPH 0836 Vancomycin HCl 1,000 MG Q24H 01/30 2000 AC 01/29 Sodium Chloride 250 ML IV 2111 Last 24 Hrs of Lab/Black Results Last 24 Hrs of Labs/Mics: Laboratory Tests 01/30/18 08: Anion Gap 12, Estimated GFR > 60, BUN/Creatinine Ratio 36.7 H, CBC w Diff NO MAN DIFF REQ, RBC 2.98 L, MCV 80.7 L, MCH 26.3 L, MCHC 32.6 L, RDW 17.5 H, MPV 7.6, Gran % 89.2 H, Lymphocytes % 4.9 L, Monocytes % 5.0, Eosinophils % 0.2, Basophils % 0.7, Absolute Granulocytes 8.0 H, Absolute Lymphocytes 0.4 L, Absolute Monocytes 0.5, Absolute Eosinophils 0, Absolute Basophils 0.1 Microbiology 01/30 0850 BLOOD: Blood Culture - RECD 01/30 823 BLOOD: Blood Culture - RECD Assessment/Plan Assessment: 82 yo F with a PMH of anxiety, hypothyroidism, dementia, depression, obstructive uropathy, ESBL and MRSA who presents from [facility] to the ED with a fever of 102.5 and lethargy. - CXR, head CT negative -CT abd - Thick-walled appearance of the rectum with mild surrounding stranding; this could reflect a proctitis in the proper clinical setting Problem list: Sepsis with gram-positive bacteremia AMS Anemia History of UTI ESBL History of MRSA Assessment and Plan: -Gram-positive cocci in clusters in blood-source of sepsis is unknown at this time. We will take ultrasound of the right hip to rule out any abscess/fluid collection. ID on board. Patient is on vancomycin 1 g IV every 24 -Holding antipsychotic/anti-depressive medications. restart as mental status improves -monitor H/H (7.8/24.3). normal iron studies. elevated retic -cont wound care and f/u wound care/imaging records -Ativan at bedtime for agitation. -Confirm reason for hydroxychloroquine with nursing facility -discuss with family regarding end of care issues. -f/u pancultures -monitor electrolytes and replnish as needed - DVT ppx: sc Enoxaparin Code: DNR/I Problem List: 1. Sepsis 2. Altered mental status Pain Ratin Pain Location: None Pain Goal: Remain pain free Pain Plan: Tylenol Tomorrow's Labs & Rationales: cbc,bep
[2018-01-30 09:17] LABS: ABSOLUTE BASOPHIL COUNT 0.1 /CUMM (0.0-0.2); ABSOLUTE EOSINOPHIL COUNT 0 /CUMM (0.0-0.7); ABSOLUTE LYMPH COUNT 0.4 /CUMM (1.2-3.4); ABSOLUTE MONOCYTE COUNT 0.5 /CUMM (0.10-0.60); BASOPHIL % 0.7 % (0.0-2.0); EOSINOPHIL % 0.2 % (0-5); MEAN CORPUSCULAR HGB 26.3 PG (27.0-31.0); MEAN CORPUSCULAR HGB CONC 32.6 G/DL (33.0-37.0); MEAN CORPUSCULAR VOLUME 80.7 FL (81.0-99.0); MEAN PLATELET VOLUME 7.6 FL (7.4-10.4); PLATELET COUNT 447 /CUMM (130-400); RBC DISTRIBUTION WIDTH 17.5 % (11.5-14.5); RED BLOOD CELL CT 2.98 /CUMM (4.20-5.40)
--- NOTE | 2018-01-30 10:08 | PN- Att Addend ---
Attending Addendum Attending Brief Note Patient offers no complaints, mental status about baseline. Temp max 102.9 last evening other vital signs are stable. Some physical. Appreciate infectious diseases input and recommendations antibiotics were adjusted and blood cultures were noted infectious diseases to talk to interventional radiologist to see what 's the best way to evaluate the hip, to try to find out what the origin of her sepsis. Intake & Output 01/30 1600 01/30 0800 01/30 0000 01/29 1600 01/29 0800 01/29 0000 Intake Total 240 1000 1000 2450 Output Total 300 2000 Balance -60 1000 1000 450 Intake, IV 060 646 5399 Intake, Oral 240 600 200 Number 0 Bowel Movements Output, Urine 300 2000 Patient 160 lb 160 lb Weight Weight Estimated Estimated Measurement Method Current Medications Sig/Rosa Start time Last Medication Dose Route Stop Time Status Admin Acetaminophen 650 MG Q6P PRN 01/29 0130 AC 01/29 PO 2112 Calcium Carbonate 1,250 MG QAM 01/29 0900 AC 01/29 PO 0835 Clindamycin 600 MG IQ8 01/29 1000 DC 01/29 Dextrose/Water 50 ML IV 1551 Enoxaparin Sodium 40 MG DAILY 01/29 0900 DC 01/29 SC 0835 Hydroxychloroquine 200 MG BID 01/29 09 AC 01/29 Sulfate PO 1930 Latanoprost 1 GTT AT BEDTIME 01/29 2100 AC 01/29 OPH 1930 Levothyroxine Sodium 0.112 MG DAILY 01/29 0900 AC 01/30 PO 0810 Lorazepam 0.5 MG AT BEDTIME 01/29 2100 AC 01/29 PO 02/05 205 1930 Meropenem 1 GM IQ8 01/29 0800 DC 01/29 IV 1551 Non-Formulary 0 SEE ADMIN CRITERIA 01/29 0145 UNV Medication ANY Potassium Chloride 10 MEQ Q1H 01/29 1445 DC 01/29 IV 01/29 1546 1701 Sodium Chloride 1,000 ML Q20H 01/30 0800 AC 01/30 IV 01/31 0359 0803 Sodium Chloride 1,000 ML Q20H 01/29 0300 DC 01/29 IV 01/29 2259 0417 Timolol Maleate 1 GTT QAM 01/29 0900 AC 01/29 OPH 0836 Vancomycin HCl 1,000 MG Q24H 01/29 2000 AC 01/29 Sodium Chloride 250 ML IV 211 Laboratory Tests 01/30/18 0823: Anion Gap 12, Estimated GFR > 60, BUN/Creatinine Ratio 36.7 H, CBC w Diff Pending, WBC Pending, RBC Pending, Hgb Pending, Hct Pending, MCV Pending, MCH Pending, MCHC Pending, RDW Pending, Plt Count Pending, MPV Pending, Gran % Pending, Lymphocytes % Pending, Monocytes % Pending, Eosinophils % Pending, Basophils % Pending, Absolute Granulocytes Pending, Absolute Lymphocytes Pending , Absolute Monocytes Pending, Absolute Eosinophils Pending, Absolute Basophils Pending 01/29/18 0822: Anion Gap 11, Estimated GFR > 60, BUN/Creatinine Ratio 26.7 H, PT 14.9 H, INR 1.36 H, CBC w Diff MAN DIFF ORDERED, RBC 3.05 L, MCV 79.9 L, MCH 26.1 L, MCHC 32.7 L, RDW 16.8 H, MPV 7.8, Gran % 88.7 H, Lymphocytes % 4.0 L, Monocytes % 7.1, Eosinophils % 0, Basophils % 0.2, Absolute Granulocytes 12.2 H , Segmented Neutrophils 84 H, Band Neutrophils 6 H, Absolute Lymphocytes 0.5 L, Lymphocytes 2 L, Monocytes 7, Absolute Monocytes 1.0 H, Absolute Eosinophils 0, Basophils 1, Absolute Basophils 0, Platelet Estimate VERIFIED BY SMEAR, Anisocytosis 1+ 01/29/18 0008: Lactic Acid Cancelled 01/28/18 2215: Anion Gap 10, Estimated GFR > 60, BUN/Creatinine Ratio 22.5, Glucose 121 H, Lactic Acid 1.0, Calcium 8.8, Iron 21 L, TIBC 280, Ferritin 93.4, Total Bilirubin 0.6, AST 19, ALT 24, Alkaline Phosphatase 81, Creatine Kinase 160 H, Troponin I < 0.01, C-Reactive Prot, Quant > 9.0 H, Total Protein 5.5 L, Albumin 2.7 L, Globulin 2.8, Albumin/Globulin Ratio 1.0 L, Vitamin B12 703, Folate 11.9, Free T4 1.42, Total T3 0.56 L, TSH &T3 &Free T4 Intrp 7.260 H, CBC w Diff MAN DIFF ORDERED, RBC 3.13 L, MCV 79.2 L, MCH 26.0 L, MCHC 32.8 L , RDW 17.0 H, MPV 7.8, Gran % 88.1 H, Lymphocytes % 4.6 L, Monocytes % 6.9, Eosinophils % 0, Basophils % 0.4, Absolute Granulocytes 19.5 H, Segmented Neutrophils 84 H, Band Neutrophils 3, Absolute Lymphocytes 1.0 L, Lymphocytes 6 L, Monocytes 7, Absolute Monocytes 1.5 H, Absolute Eosinophils 0, Absolute Basophils 0.1, Platelet Estimate ADEQUATE, Anisocytosis 1+, Microcytic Cells 1+, Retic Count 2.41 H 01/28/182204: Urine Opiates Screen < 100, Methadone Screen 43, Barbiturate Screen < 60, Ur Phencyclidine Scrn < 6.00, Amphetamines Screen 279, U Benzodiazepines Scrn 143, Urine Cocaine Screen < 50, Urine Cannabis Screen < 5.00, Urine Color YEL, Urine Clarity HAZY H, Urine pH 8.0, Ur Specific [place] >= 1.030, Urine Protein 30 H , Urine Ketones NEG, Urine Nitrite NEG, Urine Bilirubin NEG, Urine Urobilinogen 0.2, Ur Leukocyte Esterase MOD H, Ur Microscopic SEDIMENT EXAMINED, Urine RBC RARE, Urine WBC 1-3 H, Ur Epithelial Cells RARE, Urine Bacteria MANY H, Urine Mucus RARE, Urine Hemoglobin NEG, Urine Glucose NEG Microbiology 01/30 0850 BLOOD: Blood Culture - RECD 01/30 823 BLOOD: Blood Culture - RECD 01/29 135 LOWER RESP: Respiratory Culture - COLB 01/29 135 LOWER RESP: Gram Stain - COLB 01/28 2230 BLOOD: Blood Culture - RES STAPH AUREUS 01/29 2220 BLOOD: Blood Culture - RES STAPH AUREUS 01/28 2205 URINE ROUT: Urine Culture - RES GRAM NEGATIVE RODS Vital Signs Date Time Temp Pulse Resp B/P B/P Pulse O2 O2 Flow FiO2 Mean Ox Delivery Rate 01/30 0542 98.4 96 20 140/60 96 Room Air 01/30 0035 99.0 01/298 102.9 01/298 102.9 01/29 2225 100 18 136/70 94 Room Air 01/29 2156 102.5 103 18 126/58 95 Room Air 01/29 2112 102.5 01/29 2100 102.5 01/29 1930 99.8 01/29 1630 100.9 01/29 1543 Room Air 01/29 1429 103.0 108 18 110/50 94 01/29 1420 103.1
[2018-01-30 10:13] LABS: GRANULOCYTE % 89.2 % (42.2-75.2)
--- NOTE | 2018-01-30 11:58 | PN- Infect Dx ---
Subjective Subjective: T-max 103. She complains of back pain. Objective Last 24 Hrs of Vital Signs/I&O Vital Signs Date Time Temp Pulse Resp B/P B/P Pulse O2 O2 Flow FiO2 Mean Ox Delivery Rate 01/30 0542 98.4 96 20 140/60 96 Room Air 01/30 0035 99.0 01/29 2248 102.9 01/29 2248 102.9 01/29 2225 100 18 136/70 94 Room Air 01/29 2156 102.5 103 18 126/58 95 Room Air 01/29 2112 102.5 01/29 2100 102.5 01/29 1930 99.8 01/29 1630 100.9 01/29 1543 Room Air 01/29 1429 103.0 108 18 110/50 94 01/29 1420 103.1 Intake & Output 01/30 1600 01/30 0800 01/30 0000 Intake Total 240 1000 Output Total 300 Balance -60 1000 Intake, IV 400 Intake, Oral 240 600 Output, Urine 300 Physical Exam Other Physical Findings: She appears comfortable in no acute distress Lungs are clear Heart regular rhythm with a 2/6 systolic ejection murmur Abdomen is soft, nontender with positive bowel sounds Back right-sided sacral decubitus with no surrounding inflammation Extremities right hip dislocated, with no overlying inflammation Winters catheter remains in place Results Last 24 Hours of Lab Results: Laboratory Tests 01/30 823 Chemistry Sodium (137 - 145 mmol/L) 139 Potassium (3.5 - 5.1 mmol/L) 3.6 Chloride (98 - 107 mmol/L) 105 Carbon Dioxide (22 - 30 mmol/L) 23 Anion Gap (5 - 16) 12 BUN (7 - 17 mg/dL) 11 Creatinine (0.5 - 1.0 mg/dL) 0.3 L Estimated GFR (>60 ml/min) > 60 BUN/Creatinine Ratio (7 - 25 %) 36.7 H Hematology CBC w Diff NO MAN DIFF REQ WBC (4.8 - 10.8 /CUMM) 9.0 RBC (4.20 - 5.40 /CUMM) 2.98 L Hgb (12.0 - 16.0 G/DL) 7.8 L Hct (37 - 47 %) 24.0 L MCV (81.0 - 99.0 FL) 80.7 L MCH (27.0 - 31.0 PG) 26.3 L MCHC (33.0 - 37.0 G/DL) 32.6 L RDW (11.5 - 14.5 %) 17.5 H Plt Count (130 - 400 /CUMM) 447 H MPV (7.4 - 10.4 FL) 7.6 Gran % (42.2 - 75.2 %) 89.2 H Lymphocytes % (20.5 - 51.1 %) 4.9 L Monocytes % (1.7 - 9.3 %) 5.0 Eosinophils % (0 - 5 %) 0.2 Basophils % (0.0 - 2.0 %) 0.7 Absolute Granulocytes (1.4 - 6.5 /CUMM) 8.0 H Absolute Lymphocytes (1.2 - 3.4 /CUMM) 0.4 L Absolute Monocytes (0.10 - 0.60 /CUMM) 0.5 Absolute Eosinophils (0.0 - 0.7 /CUMM) 0 Absolute Basophils (0.0 - 0.2 /CUMM) 0.1 Last 24 Hours of Black Results: Blood cultures 4 January 28 probable MRSA Urine culture January 28 greater than 100,000 colonies of ESBL producing E. coli Assessment/Plan ID Impression: Probable MRSA sepsis, with persistent fevers, though her white blood cell count is now normal, Day 1 of Vancomycin, which she apparently tolerated despite her reported allergy, which should still be substantiated and further information may be able to be obtained from [facility] or her orthopedist (Dr. Kamara). The source of her sepsis remains unclear, but am concerned about the prosthetic , dislocated right hip, given the history of a nonhealing wound, requiring a wound VAC for several months. Have discussed with IR, who does not feel that right hip aspiration is feasible given the dislocation, but recommended an ultrasound to evaluate for any fluid. Her back pain is of unclear significance but further evaluation, for example with an MRI, may need to be considered. The positive urine culture likely represents contamination or asymptomatic bacteriuria and should not require treatment. Suggestion: 1. Ultrasound of the right hip, with possible aspiration if any fluid identified 2. Orthopedic evaluation with Dr. Ingram 3. Remove Winters catheter 4. Attempt to obtain more information regarding her Vancomycin allergy 5. Follow-up echocardiogram 6. Further evaluation, for example MRI of the spine, based on above 7. Continue Vancomycin
[2018-01-30 14:31] VITALS: BP 144/60
--- NOTE | 2018-01-30 16:34 | ULTRASOUND REPORT ---
EXAMINATION: US SUPERFICIAL IMAGING, EXTREMITY CLINICAL INFORMATION: Gram-positive cocci infection with open wound right hip. Distal right hip ultrasound. Resultant diagnosis of abscess/fluid collection. COMPARISON: CT scan of the abdomen and pelvis dated 01/28/2018. TECHNIQUE: Focused ultrasound of the right hip was performed. FINDINGS: There is a small amorphous vertically oriented mildly complex fluid filled tract seen extending from the subcutaneous tissues underlying the right lateral posterior hip incision and extending towards the joint capsule but not extending into the joint capsule. No drainable abscess collection is seen. In the right hip joint itself, a small hip joint effusion is seen. IMPRESSION: 1. Small hip joint effusion. Clinical correlation is requested to assess for potential septic joint. 2. Complex fluid-filled tract is seen in the subcutaneous tissues underlying the posterior lateral right hip incision/scar extending toward the hip joint. No definite communication to the hip joint can be identified on this exam.
--- NOTE | 2018-01-30 16:55 | ECHOCARDIOGRAM REPORT ---
EZEQUIEL ALFONSO Age: 82 : 1935 Gender: F Exam Date: 01/30/2018 10:35 Exam Location: 2 [address] A Ht (in): 60 Wt (lb): 160 BSA: 1.78 BP: 140 / 60 Ordering Physician: Shira Pugh MD Referring Physician: Shira Pugh MD Technologist: Alan Yao [facility] Room Number: 225-1 Indications: VALVULAR DISEASE Rhythm: Sinus Technical Quality: good FINDINGS Left Ventricle Normal left ventricular size, wall thickness and systolic function with no obvious regional wall motion abnormalities. Normal left ventricular diastolic filling pattern for age. The ejection fraction is visually estimated at 60 %. Right Ventricle The right ventricle is normal in size and function. Right Atrium The right atrium is mildly enlarged. Left Atrium The left atrium is mildly enlarged. The interatrial septum is intact. Mitral Valve The mitral valve is normal in structure and function. There is trace mitral regurgitation. Aortic Valve Moderate aortic sclerosis without stenosis. There is no aortic regurgitation. Tricuspid Valve The tricuspid valve is normal in structure and function. There is trace tricuspid regurgitation. Pulmonary artery systolic pressure is normal, estimated at 25 mmHg. Pulmonic Valve Structurally normal pulmonic valve. There is trace pulmonic regurgitation. Pericardium Normal pericardium without effusion. No pleural effusion. Great Vessels Proximal ascending aorta at the upper limit of normal for patient size. The aortic arch and great vessels are well seen and are normal. CONCLUSIONS Normal left ventricular size, wall thickness and systolic function with no obvious regional wall motion abnormalities. Normal left ventricular diastolic filling pattern for age. The ejection fraction is visually estimated at 60 %. The left atrium is mildly enlarged. There is trace mitral regurgitation. Moderate aortic sclerosis without stenosis. There is trace tricuspid regurgitation. Pulmonary artery systolic pressure is normal, estimated at 25 mmHg. Normal pericardium without effusion. Proximal ascending aorta at the upper limit of normal for patient size. Campos Rowe M.D. (Electronically Signed) Final Date: 30 January 2018 16:54 MEASUREMENTS (Male / Female) Normal Values 2D ECHO LV Diastolic Diameter PLAX 4.0 cm 4.2 - 5.9 / 3.9 - 5.3 cm LV Systolic Diameter PLAX 2.6 cm 2.1 - 4.0 cm LV Fractional Shortening PLAX 35.0 % 25 - 46 % LV Ejection Fraction 2D Teich 64.8 % IVS Diastolic Thickness 1.1 cm LVPW Diastolic Thickness 0.9 cm LV Relative Wall Thickness 0.5 RV Internal Dim ED PLAX 3.0 cm 1.9 - 3.8 cm LVOT Diameter 1.9 cm Aortic Root Diameter 2.9 cm LA Systolic Diameter LX 2.5 cm 3.0 - 4.0 / 2.7 - 3.8 cm LA Volume 25.0 cm 18 - 58 / 22 - 52 cm Ascending Aorta Diameter 3.4 cm DOPPLER AV Peak Velocity 261.0 cm/s AV Peak Gradient 27.2 mmHg AV Mean Velocity 173.0 cm/s AV Mean Gradient 14.0 mmHg AV Velocity Time Integral 49.2 cm LVOT Peak Velocity 145.0 cm/s LVOT Peak Gradient 8.4 mmHg LVOT Mean Velocity 86.4 cm/s LVOT Mean Gradient 4.0 mmHg LVOT Velocity Time Integral 29.1 cm LVOT Stroke Volume 82.5 cm AV Area Cont Eq vti 1.7 cm AV Area Cont Eq pk 1.6 cm MV Peak Velocity 139.0 cm/s MV Peak Gradient 7.7 mmHg MV Mean Velocity 93.3 cm/s MV Mean Gradient 4.0 mmHg Mitral E Point Velocity 124.0 cm/s Mitral A Point Velocity 111.0 cm/s Mitral E to A Ratio 1.1 MV PHT Velocity 138.0 cm/s MV Deceleration Monona 628.0 cm/s MV Pressure Half Time 65.9 ms MV Area PHT 3.3 cm MV Deceleration Time 208.0 ms TR Peak Velocity 250.0 cm/s TR Peak Gradient 25.0 mmHg Right Atrial Pressure 5.0 mmHg Pulmonary Artery Systolic Pressu 30.0 mmHg Right Ventricular Systolic Press 30.0 mmHg LV E' Lateral Velocity 11.6 cm/s Mitral E to LV E' Lateral Ratio 10.7 LV E' Septal Velocity 11.1 cm/s Mitral E to LV E' Septal Ratio 11.2
--- NOTE | 2018-01-30 18:03 | Cons- Orthopedic ---
General Information and HPI Consulting Request Date of Consult: 01/30/18 Requested By: Edward John MD History of Present Illness: This is an 82-year-old female status post right hip hemiarthroplasty. 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 She is a poor historian. She has been found to have bacteremia. I was called to evaluate her for possible septic hip. She cannot answer any questions regarding her previous surgery. Allergies/Medications Allergies: Coded Allergies: adhesive (UNKNOWN 12/21/17) celecoxib (UNKNOWN 12/21/17) methotrexate (UNKNOWN 12/21/17) morphine (UNKNOWN 12/21/17) propoxyphene (UNKNOWN 12/21/17) sulfamethazine (UNKNOWN 12/21/17) vancomycin (UNKNOWN 12/21/17) Home Med List: Bimatoprost (Lumigan) 0.01 % DROPS 1 GTT OPH QPM GLAUCOMA (Reported) Bisacodyl (Bisac-Evac) 10 MG SUPP.RECT 1 SUPP WV DAILY PRN CONSTIPATION ( Reported) IF M.O.M. INEFFECTIVE Brinzolamide/Brimonidine Tart (Simbrinza 1%-0.2% Eye Drops) 1 %-0.2 % DROPS.SUSP 1 DROP OU BID GLAUCOMA (Reported) Calcium Carbonate (TUMS) 200 MG CALCIUM (500 MG) TAB.CHEW 1,200 MG PO QAM REFLUX (Reported) Donepezil HCl (Aricept) 5 MG TABLET 1 TAB PO QAM (Reported) Hydroxychloroquine Sulfate 200 MG TABLET 1 TAB PO BID (Reported) Levothyroxine Sodium (Synthroid) 112 MCG TABLET 1 TAB PO DAILY HYPOTHYROID ( Reported) Lorazepam (Ativan) 0.5 MG TABLET 0.5 TAB PO BID AGITATION, ANXIETY (Reported) Magnesium Hydroxide (Milk Of Magnesia) 400 MG/5 ML ORAL.SUSP 30 ML PO DAILY PRN CONSTIPATION (Reported) Memantine HCl (Namenda) 10 MG TABLET 5 MG PO BID DEMENTIA (Reported) Mirtazapine (Remeron) 15 MG TABLET 0.5 TAB PO QPM sleep (Reported) Multivitamin (Multivitamins) 1 EACH CAPSULE 1 TAB PO DAILY SUPPLEMENT ( Reported) Na Phos,M-B/Na Phos,Di-Ba (Fleet Enema) 19 GRAM-7 GRAM/118 ML ENEMA 1 E RC ONCE PRN CONSTIPATION (Reported) Quetiapine Fumarate (Seroquel) 25 MG TABLET 0.5 TAB PO BID agitation ( Reported) Quetiapine Fumarate 25 MG TABLET 1 TAB PO QPM DEPRESSION (Reported) Risperidone (Risperdal) 1 MG TABLET 1 TAB PO QPM DEPRESSION (Reported) Sennosides/Docusate Sodium (Senexon-S Tablet) 8.6 MG-50 MG TABLET 1 TAB PO DAILY CONSTIPATION (Reported) Sertraline HCl 50 MG TABLET 1 TAB PO DAILY depression (Reported) Timolol Maleate 0.5 % DROPS 1 GTT OPH QAM GLAUCOMA (Reported) INTO L EYE Trazodone HCl 50 MG TABLET 12.5 TAB PO Q8 PRN agitation (Reported) Past History Medical History Neurological: dementia EENT: glaucoma Cardiovascular: NONE Respiratory: NONE Gastrointestinal: constipation Hepatic: NONE Renal: chronic kidney disease, OBSTRUCTIVE UROPATHY Musculoskeletal: PRESSURE ULCER BUTTOCKS Psychiatric: anxiety, depression Endocrine: hypothyroidism Blood Disorders: NONE Cancer(s): NONE 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 Other Services at Home: None Smoking Status: Unknown If Ever Smoked ETOH Use: denies use Exam & Diagnostic Data Vital Signs and I&O Vital Signs Date Time Temp Pulse Resp B/P B/P Pulse O2 O2 Flow FiO2 Mean Ox Delivery Rate 01/30 1431 103.2 98 20 144/60 97 Room Air 01/30 1430 Room Air 01/30 1403 103.2 01/30 0542 98.4 96 20 140/60 96 Room Air 01/30 0035 99.0 01/298 102.9 01/298 102.9 01/29 2225 100 18 136/70 94 Room Air 01/29 2156 102.5 103 18 126/58 95 Room Air 01/29 2112 102.5 01/29 2100 102.5 01/29 1930 99.8 Intake & Output 01/30 1600 01/30 0800 01/30 0000 01/29 1600 01/29 0800 01/29 0000 Intake Total 567 875 9656 1000 2450 Output Total 512 717 9216 Balance -25 -60 1000 1000 450 Intake, IV 400 107 176 4884 Intake, Oral 240 600 200 Number 0 Bowel Movements Output, Urine 170 557 6729 Patient 160 lb 160 lb Weight Weight Estimated Estimated Measurement Method Physical Exam: Right hip incision is intact. No erythema noted. No drainage noted. No pain with log roll of the right hip Last 24 Hours of Labs: Laboratory Tests 01/30 0823 Chemistry Sodium (137 - 145 mmol/L) 139 Potassium (3.5 - 5.1 mmol/L) 3.6 Chloride (98 - 107 mmol/L) 105 Carbon Dioxide (22 - 30 mmol/L) 23 Anion Gap (5 - 16) 12 BUN (7 - 17 mg/dL) 11 Creatinine (0.5 - 1.0 mg/dL) 0.3 L Estimated GFR (>60 ml/min) > 60 BUN/Creatinine Ratio (7 - 25 %) 36.7 H Hematology CBC w Diff NO MAN DIFF REQ WBC (4.8 - 10.8 /CUMM) 9.0 RBC (4.20 - 5.40 /CUMM) 2.98 L Hgb (12.0 - 16.0 G/DL) 7.8 L Hct (37 - 47 %) 24.0 L MCV (81.0 - 99.0 FL) 80.7 L MCH (27.0 - 31.0 PG) 26.3 L MCHC (33.0 - 37.0 G/DL) 32.6 L RDW (11.5 - 14.5 %) 17.5 H Plt Count (130 - 400 /CUMM) 447 H MPV (7.4 - 10.4 FL) 7.6 Gran % (42.2 - 75.2 %) 89.2 H Lymphocytes % (20.5 - 51.1 %) 4.9 L Monocytes % (1.7 - 9.3 %) 5.0 Eosinophils % (0 - 5 %) 0.2 Basophils % (0.0 - 2.0 %) 0.7 Absolute Granulocytes (1.4 - 6.5 /CUMM) 8.0 H Absolute Lymphocytes (1.2 - 3.4 /CUMM) 0.4 L Absolute Monocytes (0.10 - 0.60 /CUMM) 0.5 Absolute Eosinophils (0.0 - 0.7 /CUMM) 0 Absolute Basophils (0.0 - 0.2 /CUMM) 0.1 Imaging Results: CT pelvis: Right hip hemiarthroplasty dislocation. No evidence of osteomyelitis. Assessment/Plan Assessment/Plan This is an 82-year-old female with a history of sacrtal decubitus ulcers, chronic right hip hemiarthroplasty dislocation, bacteremia. I have been called to evaluate her right hip. I do not think in her condition a revision hip surgery is indicated given the chronicity of her injury and nonambulatory status. The right hip may be a source of infection however she has hardware in multiple places. Nothing on examination suggests a septic hip. She complains of left hip pain, not right hip pain. If there is concern a right hip aspiration can be performed by the interventional radiologists to rule out septic joint. Consult Acknowledgment - Thank you for your consult request.
[2018-01-30 21:49] VITALS: BP 140/60
[2018-01-31 06:20] VITALS: BP 122/58
--- NOTE | 2018-01-31 07:17 | PN- Housestaff ---
Subjective Follow-up For: Gram-positive sepsis Complaints: no complaints Subjective: Patient seen and examined at bedside. No overnight events. Patient seems little confused. Oriented 2. Denies pain in her right hip, chest pain, shortness of breath. Review of Systems Constitutional: Reports: no symptoms, see HPI. Objective Last 24 Hrs of Vital Signs/I&O Vital Signs Date Time Temp Pulse Resp B/P B/P Pulse O2 O2 Flow FiO2 Mean Ox Delivery Rate 01/31 0929 99.2 01/31 0620 101.1 90 18 122/58 95 Room Air 01/31 0542 101.1 01/31 0242 99.9 01/30 2149 101.3 101 18 140/60 93 Room Air 01/30 2143 100.8 01/30 2044 101.3 01/30 1500 101.9 01/30 1431 103.2 98 20 144/60 97 Room Air 01/30 1430 Room Air Intake & Output 01/31 1600 01/31 0800 01/31 0000 Intake Total 610 600 Output Total 525 Balance 85 600 Intake, IV 250 500 Intake, Oral 360 100 Output, Urine 525 Physical Exam General Appearance: Alert, Cooperative, No Acute Distress Cardiovascular: Regular Rate, Normal S1, Normal S2, No Murmurs Lungs: Clear to Auscultation Abdomen: Soft, No Tenderness, No Hepatospenomegaly Neurological: Normal Speech, Normal Tone Extremities: right hip wound-no erythema/swelling, left buttock-skin tear with no redness. Current Medications: Current Medications Sig/Rosa Start time Last Medication Dose Route Stop Time Status Admin Acetaminophen 1,000 MG .STK-MED ONE 01/31 0541 DC IV 01/31 0542 Acetaminophen 1,000 MG Q6P PRN 01/30 1430 01/31 N/A 1 UNIT IV 0542 Acetaminophen 650 MG Q6P PRN 01/29 0130 AC 01/30 PO 1403 Brimonidine Tartrate 1 GTT BID 01/30 1115 AC 01/31 OPH 0836 Calcium Carbonate 1,250 MG QAM 01/29 0900 AC 01/31 PO 0835 Dorzolamide HCl 1 GTT BID 01/30 1115 AC 01/31 OPH 0836 Hydroxychloroquine 200 MG BID 01/29 0900 AC 01/31 Sulfate PO 0835 Latanoprost 1 GTT AT BEDTIME 01/29 2100 AC 01/30 OPH 1931 Levothyroxine Sodium 0.112 MG DAILY 01/29 0900 AC 01/31 PO 0835 Lorazepam 0.5 MG AT BEDTIME 01/29 2100 AC 01/30 PO 02/05 Potassium Chloride 20 MEQ .STK-MED ONE 01/30 1500 DC PO 01/30 1501 Timolol Maleate 1 GTT QAM 01/29 0900 AC 01/31 OPH 0836 Vancomycin HCl 1,000 MG Q24H 01/31 1015 AC 01/31 Sodium Chloride 250 ML IV 1036 Vancomycin HCl 1,000 MG Q24H 01/29 2000 DC 01/29 Sodium Chloride 250 ML IV 2111 Last 24 Hrs of Lab/Black Results Last 24 Hrs of Labs/Mics: Laboratory Tests 01/31/18 0631: Anion Gap 12, Estimated GFR > 60, BUN/Creatinine Ratio 26.7 H, CBC w Diff NO MAN DIFF REQ, RBC 2.89 L, MCV 78.6 L, MCH 26.2 L, MCHC 33.3, RDW 17.3 H, MPV 7.6, Gran % 80.3 H, Lymphocytes % 9.7 L, Monocytes % 8.9, Eosinophils % 0.8, Basophils % 0.3, Absolute Granulocytes 3.9, Absolute Lymphocytes 0.5 L, Absolute Monocytes 0.4, Absolute Eosinophils 0, Absolute Basophils 0 Microbiology 01/31 1046 BODY FLUID: Body Fluid Culture - COLB 01/31 104 BODY FLUID: Gram Stain - COLB Assessment/Plan Assessment: 82 yo F with a PMH of anxiety, hypothyroidism, dementia, depression, obstructive uropathy, ESBL and MRSA who presents from [facility] to the ED with a fever of 102.5 and lethargy. - CXR, head CT negative -CT abd - Thick-walled appearance of the rectum with mild surrounding stranding; this could reflect a proctitis in the proper clinical setting Problem list: Sepsis with gram-positive bacteremia AMS Anemia History of UTI ESBL History of MRSA Assessment and Plan: -Gram-positive cocci in clusters in blood-source of sepsis most likely looks like right hip prosthesis infection. Blood cultures growing MRSA.Patient underwent ultrasound of the right hip which showed small amount of effusion. Patient was seen by orthopedic Dr. Ingram who suggested to drain the effusion. Spoke with Dr. Cohen in interventional radiology who agreed to tap the effusion. ID on board. Patient is on vancomycin 1 g IV every 24 day 2. We will continue the same and follow up with fluid culture. Patient is nothing by mouth and off heparin in view of intervention. -Holding antipsychotic/anti-depressive medications. restart as mental status improves -monitor H/H (7.8/24.3). normal iron studies. elevated retic -cont wound care and f/u wound care/imaging records -Ativan at bedtime for agitation. -Called [facility]weiit who wouldn't confirm why the patient is on hydroxychloroquine/ Winters catheter/vancomycin allergy. After discussing with Juan Alberto Lovell MD Winters catheter was removed yesterday. -discuss with family regarding end of care issues. -monitor electrolytes and replnish as needed Update-patient went for right hip ultrasound guided aspiration, during the same time it was found that she has left leg deep vein thrombosis. This was relayed to Dr. Alvaro Leon and decided to start her on heparin. Guaiac negative. Problem List: 1. Bacteremia due to Gram-positive bacteria 2. Hip dislocation, right 3. Sepsis Pain Ratin Pain Location: none Pain Goal: Remain pain free Pain Plan: tylenol Tomorrow's Labs & Rationales: cbc,bep
[2018-01-31 08:36] LABS: ABSOLUTE BASOPHIL COUNT 0 /CUMM (0.0-0.2); ABSOLUTE EOSINOPHIL COUNT 0 /CUMM (0.0-0.7); ABSOLUTE GRANULOCYTE CT 3.9 /CUMM (1.4-6.5); ABSOLUTE LYMPH COUNT 0.5 /CUMM (1.2-3.4); ABSOLUTE MONOCYTE COUNT 0.4 /CUMM (0.10-0.60); BASOPHIL % 0.3 % (0.0-2.0); EOSINOPHIL % 0.8 % (0-5); GRANULOCYTE % 80.3 % (42.2-75.2); HEMATOCRIT 22.7 % (37-47); MEAN CORPUSCULAR HGB 26.2 PG (27.0-31.0); MEAN CORPUSCULAR HGB CONC 33.3 G/DL (33.0-37.0); MEAN CORPUSCULAR VOLUME 78.6 FL (81.0-99.0); MEAN PLATELET VOLUME 7.6 FL (7.4-10.4); PLATELET COUNT 404 /CUMM (130-400); RBC DISTRIBUTION WIDTH 17.3 % (11.5-14.5); RED BLOOD CELL CT 2.89 /CUMM (4.20-5.40); WHITE BLOOD CELL COUNT 4.9 /CUMM (4.8-10.8)
--- NOTE | 2018-01-31 11:42 | PN- Infect Dx ---
Subjective Subjective: T-max 103.2. She complains of left-sided pain but is somewhat vague with regard to the location Objective Last 24 Hrs of Vital Signs/I&O Vital Signs Date Time Temp Pulse Resp B/P B/P Pulse O2 O2 Flow FiO2 Mean Ox Delivery Rate 01/31 0929 99.2 01/31 0620 101.1 90 18 122/58 95 Room Air 01/31 0542 101.1 01/31 0242 99.9 01/30 2149 101.3 101 18 140/60 93 Room Air 01/30 2143 100.8 01/30 2044 101.3 01/30 1500 101.9 01/30 1431 103.2 98 20 144/60 97 Room Air 01/30 1430 Room Air 01/30 1403 103.2 Intake & Output 01/31 1600 01/31 0800 01/31 0000 Intake Total 610 600 Output Total 525 Balance 85 600 Intake, IV 250 500 Intake, Oral 360 100 Output, Urine 525 Physical Exam Other Physical Findings: She is awake and alert, confused, but in no acute distress Lungs are clear Heart regular rhythm with a 2/6 systolic ejection murmur Abdomen is soft, with no obvious tenderness, positive bowel sounds Back right-sided sacral decubitus with dressing n place Extremities right hip dislocation, with no overlying inflammation Results Last 24 Hours of Lab Results: Laboratory Tests 01/31 631 Chemistry Sodium (137 - 145 mmol/L) 139 Potassium (3.5 - 5.1 mmol/L) 3.2 L Chloride (98 - 107 mmol/L) 104 Carbon Dioxide (22 - 30 mmol/L) 23 Anion Gap (5 - 16) 12 BUN (7 - 17 mg/dL) 8 Creatinine (0.5 - 1.0 mg/dL) 0.3 L Estimated GFR (>60 ml/min) > 60 BUN/Creatinine Ratio (7 - 25 %) 26.7 H Hematology CBC w Diff NO MAN DIFF REQ WBC (4.8 - 10.8 /CUMM) 4.9 RBC (4.20 - 5.40 /CUMM) 2.89 L Hgb (12.0 - 16.0 G/DL) 7.6 L Hct (37 - 47 %) 22.7 L MCV (81.0 - 99.0 FL) 78.6 L MCH (27.0 - 31.0 PG) 26.2 L MCHC (33.0 - 37.0 G/DL) 33.3 RDW (11.5 - 14.5 %) 17.3 H Plt Count (130 - 400 /CUMM) 404 H MPV (7.4 - 10.4 FL) 7.6 Gran % (42.2 - 75.2 %) 80.3 H Lymphocytes % (20.5 - 51.1 %) 9.7 L Monocytes % (1.7 - 9.3 %) 8.9 Eosinophils % (0 - 5 %) 0.8 Basophils % (0.0 - 2.0 %) 0.3 Absolute Granulocytes (1.4 - 6.5 /CUMM) 3.9 Absolute Lymphocytes (1.2 - 3.4 /CUMM) 0.5 L Absolute Monocytes (0.10 - 0.60 /CUMM) 0.4 Absolute Eosinophils (0.0 - 0.7 /CUMM) 0 Absolute Basophils (0.0 - 0.2 /CUMM) 0 Last 24 Hours of Black Results: Blood cultures January 28 positive for MRSA Blood cultures January 30 negative Recent Imaging Studies: Right hip ultrasound January 30 reveals a small hip joint effusion, with a complex fluid-filled tract in the subcutaneous tissues underlying the posterior lateral right hip incision/scar, extending towards the hip joint Echocardiogram January 29 no mention of vegetations Assessment/Plan ID Impression: MRSA sepsis, most likely secondary to a process involving the right hip prosthesis, given the ultrasound findings of a complex fluid-filled tract extending from the subcutaneous tissues and, possibly, into the hip joint, with plans for aspiration of this fluid by IR later today. Will need to discuss further with Orthopedics given the findings on ultrasound as suspect she may require surgical intervention, including possible removal of the prosthesis, to resolve this infection. She remains febrile, though her white blood cell count is now normal and her repeat blood cultures from yesterday are so far negative, on Vancomycin, given 2 days ago but, apparently, not yesterday. Her recent complaints of back pain and left sided pain are of unclear significance but further evaluation, for example MRI, may need to be considered if these persist and results from the IR procedure are non-revealing. Endocarditis must also be considered, though her transthoracic echo is negative, and will need to consider a LUIS ANGEL, particularly if no source of infection is identified. The positive urine culture likely represents contamination or asymptomatic bacteriuria and should not require treatment. Suggestion: 1. Await IR guided aspiration of the fluid around the right hip 2. Orthopedic follow-up of the ultrasound findings 3. Continue Vancomycin
--- NOTE | 2018-01-31 14:32 | PN- Att Addend ---
Attending Addendum Attending Brief Note Patient is awake, Lyn mental status and still spiking temperatures although her white count is down to normal limits latest blood culture negative so far no major changes on physical of the patient complained of some abdominal pain appreciate Dr. Broderick so simply the recommendations regarding the antibiotic treatment. I waiting for IR to do an aspiration around the affected hip area also would like to have an orthopedic follow-up after the ultrasound results patient may need more definite orthopedic procedure. For the origin of his sepsis still doing more testing echocardiogram was not to revealing, may need a LUIS ANGEL. Will continue treatment as per ID Intake & Output 01/31 1600 01/31 0400 01/30 1600 01/30 0400 01/29 1600 01/29 0400 Intake Total 610 960 631 4671 1200 2250 Output Total 525 038 348 9324 Balance 85 600 -85 1000 1050 400 Intake, IV 250 500 153 046 1041 2250 Intake, Oral 360 100 240 600 200 Number 0 Bowel Movements Output, Urine [id number] Patient 160 lb 160 lb Weight Weight Estimated Estimated Measurement Method Current Medications Sig/Rosa Start time Last Medication Dose Route Stop Time Status Admin Acetaminophen 1,000 MG .STK-MED ONE 01/31 0541 DC IV 01/31 0542 Acetaminophen 1,000 MG Q6P PRN 01/30 1430 AC 01/31 N/A 1 UNIT IV 0542 Acetaminophen 650 MG Q6P PRN 01/29 0130 AC 01/30 PO 1403 Brimonidine Tartrate 1 GTT BID 01/30 1115 AC 01/31 OPH 0836 Calcium Carbonate 1,250 MG QAM 01/29 09 AC 01/31 PO 0835 Dorzolamide HCl 1 GTT BID 01/30 1115 AC 01/31 OPH 0836 Hydroxychloroquine 200 MG BID 01/29 09 AC 01/31 Sulfate PO 0835 Latanoprost 1 GTT AT BEDTIME 01/29 2100 AC 01/30 OPH 1931 Levothyroxine Sodium 0.112 MG DAILY 01/29 900 AC 01/31 PO 0835 Lorazepam 0.5 MG AT BEDTIME 01/29 2100 AC 01/30 PO 02/05 2059 193 Potassium Chloride 20 MEQ .STK-MED ONE 01/30 1500 DC PO 01/30 1501 Timolol Maleate 1 GTT QAM 01/29 0900 AC 01/31 OPH 0836 Vancomycin HCl 1,000 MG Q24H 01/31 1015 AC 01/31 Sodium Chloride 250 ML IV 1036 Laboratory Tests 01/31/18 0631: Anion Gap 12, Estimated GFR > 60, BUN/Creatinine Ratio 26.7 H, CBC w Diff NO MAN DIFF REQ, RBC 2.89 L, MCV 78.6 L, MCH 26.2 L, MCHC 33.3, RDW 17.3 H, MPV 7.6, Gran % 80.3 H, Lymphocytes % 9.7 L, Monocytes % 8.9, Eosinophils % 0.8, Basophils % 0.3, Absolute Granulocytes 3.9, Absolute Lymphocytes 0.5 L, Absolute Monocytes 0.4, Absolute Eosinophils 0, Absolute Basophils 0 01/30/18 0823: Anion Gap 12, Estimated GFR > 60, BUN/Creatinine Ratio 36.7 H, CBC w Diff NO MAN DIFF REQ, RBC 2.98 L, MCV 80.7 L, MCH 26.3 L, MCHC 32.6 L, RDW 17.5 H, MPV 7.6, Gran % 89.2 H, Lymphocytes % 4.9 L, Monocytes % 5.0, Eosinophils % 0.2, Basophils % 0.7, Absolute Granulocytes 8.0 H, Absolute Lymphocytes 0.4 L, Absolute Monocytes 0.5, Absolute Eosinophils 0, Absolute Basophils 0.1 01/29/18 0822: Anion Gap 11, Estimated GFR > 60, BUN/Creatinine Ratio 26.7 H, PT 14.9 H, INR 1.36 H, CBC w Diff MAN DIFF ORDERED, RBC 3.05 L, MCV 79.9 L, MCH 26.1 L, MCHC 32.7 L, RDW 16.8 H, MPV 7.8, Gran % 88.7 H, Lymphocytes % 4.0 L, Monocytes % 7.1, Eosinophils % 0, Basophils % 0.2, Absolute Granulocytes 12.2 H , Segmented Neutrophils 84 H, Band Neutrophils 6 H, Absolute Lymphocytes 0.5 L, Lymphocytes 2 L, Monocytes 7, Absolute Monocytes 1.0 H, Absolute Eosinophils 0, Basophils 1, Absolute Basophils 0, Platelet Estimate VERIFIED BY SMEAR, Anisocytosis 1+ 01/29/18 0008: Lactic Acid Cancelled 01/28/18 2215: Anion Gap 10, Estimated GFR > 60, BUN/Creatinine Ratio 22.5, Glucose 121 H, Lactic Acid 1.0, Calcium 8.8, Iron 21 L, TIBC 280, Ferritin 93.4, Total Bilirubin 0.6, AST 19, ALT 24, Alkaline Phosphatase 81, Creatine Kinase 160 H, Troponin I < 0.01, C-Reactive Prot, Quant > 9.0 H, Total Protein 5.5 L, Albumin 2.7 L, Globulin 2.8, Albumin/Globulin Ratio 1.0 L, Vitamin B12 703, Folate 11.9, Free T4 1.42, Total T3 0.56 L, TSH &T3 &Free T4 Intrp 7.260 H, CBC w Diff MAN DIFF ORDERED, RBC 3.13 L, MCV 79.2 L, MCH 26.0 L, MCHC 32.8 L , RDW 17.0 H, MPV 7.8, Gran % 88.1 H, Lymphocytes % 4.6 L, Monocytes % 6.9, Eosinophils % 0, Basophils % 0.4, Absolute Granulocytes 19.5 H, Segmented Neutrophils 84 H, Band Neutrophils 3, Absolute Lymphocytes 1.0 L, Lymphocytes 6 L, Monocytes 7, Absolute Monocytes 1.5 H, Absolute Eosinophils 0, Absolute Basophils 0.1, Platelet Estimate ADEQUATE, Anisocytosis 1+, Microcytic Cells 1+, Retic Count 2.41 H 01/28/185: Urine Opiates Screen < 100, Methadone Screen 43, Barbiturate Screen < 60, Ur Phencyclidine Scrn < 6.00, Amphetamines Screen 279, U Benzodiazepines Scrn 143, Urine Cocaine Screen < 50, Urine Cannabis Screen < 5.00, Urine Color YEL, Urine Clarity HAZY H, Urine pH 8.0, Ur Specific [place] >= 1.030, Urine Protein 30 H , Urine Ketones NEG, Urine Nitrite NEG, Urine Bilirubin NEG, Urine Urobilinogen 0.2, Ur Leukocyte Esterase MOD H, Ur Microscopic SEDIMENT EXAMINED, Urine RBC RARE, Urine WBC 1-3 H, Ur Epithelial Cells RARE, Urine Bacteria MANY H, Urine Mucus RARE, Urine Hemoglobin NEG, Urine Glucose NEG Microbiology 01/31 1046 BODY FLUID: Body Fluid Culture - COLB 01/31 1046 BODY FLUID: Gram Stain - COLB 01/30 0850 BLOOD: Blood Culture - RES 01/30 0823 BLOOD: Blood Culture - RES 01/29 135 LOWER RESP: Respiratory Culture - CAN Cancelled: NO SAMPLE COLLECTED 01/29 135 LOWER RESP: Gram Stain - CAN Cancelled: NO SAMPLE COLLECTED 01/28 2230 BLOOD: Blood Culture - COMP METH RESIST STAPH AUREUS 01/29 2220 BLOOD: Blood Culture - COMP METH RESIST STAPH AUREUS 01/28 2205 URINE ROUT: Urine Culture - COMP ESCHERICHIA COLI ESBL Microbiology 01/31 104 BODY FLUID: Body Fluid Culture - COLB 01/31 1046 BODY FLUID: Gram Stain - COLB 01/30 0850 BLOOD: Blood Culture - RES 01/30 823 BLOOD: Blood Culture - RES 01/29 135 LOWER RESP: Respiratory Culture - CAN Cancelled: NO SAMPLE COLLECTED 01/29 135 LOWER RESP: Gram Stain - CAN Cancelled: NO SAMPLE COLLECTED 01/28 2230 BLOOD: Blood Culture - COMP METH RESIST STAPH AUREUS 01/29 2220 BLOOD: Blood Culture - COMP METH RESIST STAPH AUREUS 01/28 2205 URINE ROUT: Urine Culture - COMP ESCHERICHIA COLI ESBL Vital Signs Date Time Temp Pulse Resp B/P B/P Pulse O2 O2 Flow FiO2 Mean Ox Delivery Rate 01/31 0929 99.2 01/31 0620 101.1 90 18 122/58 95 Room Air 01/31 0542 101.1 01/31 0242 99.9 01/30 2149 101.3 101 18 140/60 93 Room Air 01/30 2143 100.8 01/30 2044 101.3 01/30 1500 101.9
--- NOTE | 2018-01-31 15:25 | ULTRASOUND REPORT ---
EXAMINATION: US TRIPLEX LOWER EXTREMITY, LEFT CLINICAL INFORMATION: This is an 82-year-old female with left leg swelling. Possible deep vein thrombosis. COMPARISON: None TECHNIQUE: Color-flow triplex imaging with spectral analysis and compression Doppler were performed on the lower extremity. FINDINGS: Respiratory variation, normal compression and augmented flow are evaluated throughout the lower extremity. The visualized common femoral vein, proximal superficial femoral vein, profunda femoral vein demonstrate nonocclusive, partially recanalized thrombus. There is also occlusive thrombus throughout the popliteal vein. The mid and distal femoral vein appear to be collapse. Thrombus in these areas is suspected but not clearly demonstrated. The calf veins could not be visualized. There is no Knight's cyst. IMPRESSION: 1. There is deep vein thrombosis present within the left lower extremity. The thrombus is seen above the level of the knee joint extending to the common femoral vein.
--- NOTE | 2018-01-31 15:30 | ULTRASOUND REPORT ---
CLINICAL HISTORY: This patient is a 82 years old female with positive blood cultures with uncertain source. She has a chronically dislocated right hip arthroplasty and an ultrasound performed of the hip demonstrate a right hip effusion. She presents interventional radiology for ultrasound-guided right hip joint aspiration. PROCEDURES: Fluoroscopically-guided right hip aspiration. PHYSICIANS: Dr. Gabbie Cohen (attending) MEDICATIONS: Lidocaine 1%, 5 mL, SQ. CONTRAST: None COMPLICATIONS: None ESTIMATED BLOOD LOSS: <5 mL SPECIMENS: 10 mL clear yellow fluid IMPLANT: None SITE MARKING: As part of the preprocedure verification policy, a site marking procedure was initiated. Due to the nature the procedure, the insertion site could not be predetermined thus invoking the policy of exemption to site laterality and marking. Insertion site marking was performed in the procedure room in conjunction with imaging confirmation. PROCEDURE NOTE: Informed consent was obtained from the patient's son, Ovi, prior to the procedure. During this process, the procedure and potential alternatives were explained along with the intended outcome and benefits. The risks of the procedure, including the possibility of an unsuccessful procedure, as well as the risk of not doing the procedure, were discussed. The patient's son was given the opportunity to ask questions regarding the procedure and appeared competent to make decisions. A signed consent form documenting this discussion was placed in the medical record. A time-out procedure was performed. The patient was placed CESPEDES on the ultrasound examination table. The patient was prepped and draped in the usual sterile fashion. All elements of maximal sterile barrier technique followed including use of cap, mask, sterile gown, sterile gloves, a sterile full body drape and hand hygiene. Also followed skin preparation with 2% chlorhexidine for cutaneous antisepsis, and sterile ultrasound preparation with sterile gel and probe cover when applicable. Using sterile technique, 1% lidocaine for local anesthesia, and real-time ultrasound guidance, a 25-gauge singlewall needle was advanced into the right hip joint. Subsequently, 10 mL of clear yellow fluid was aspirated from the right hip joint. The needle was then removed and the aspirated fluid divided and sent for analysis as requested. The patient tolerated the procedure well with no immediate complications and was discharged home without incident. FINDINGS: Clear yellow right hip joint fluid IMPRESSION: Successful fluoroscopic-guided aspiration of the right hip joint with fluid sent for analysis as requested. PLAN: The patient was stable after the procedure and was transferred to the floor.
[2018-01-31 15:45] VITALS: BP 140/60
[2018-01-31 17:35] LABS: PTT 27 SEC (25-37)
--- NOTE | 2018-01-31 21:59 | Event Note ---
Event Note Event Note: S:Per nurse notification, patient started developing rash around her face, upper extremity, and lower extremity, without any chills/shortness of breath starting around 1900, prior to initiation of heparin. Patient also has spiked a temperature of 100.2, while being treated with vancomycin. Patient had received 2 dose of vancomycin, first dose 01/29, and second dose 01/31 B: Patient is a 82-year-old female admitted for MRSA sepsis, most likely secondary to infectious process involving her right hip prosthesis, with ultrasound findings of complex fluid tract extending to subcutaneous tissues into the hip joint. AR: Likely a drug-induced rash, possible related to use of vancomycin, and unlikely from heparin as rash started before use of heparin. -Benadryl 25 mg IV 1 -Blood culture x 2 -Continue monitoring overnight
[2018-01-31 22:08] VITALS: BP 120/60
[2018-02-01 02:32] LABS: PTT 60 SEC (25-37)
[2018-02-01 06:44] VITALS: BP 118/62
--- NOTE | 2018-02-01 07:09 | PN- Housestaff ---
Subjective Follow-up For: Sepsis with MRSA Complaints: no complaints Subjective: Overnight patient developed rash over her face and both legs. She was evaluated by the 19th and was given Benadryl. She denies itching or the same site. She is lying in her bed comfortably. She complains of pain all over her joints. Review of Systems Constitutional: Reports: no symptoms. Cardiovascular: Reports: no symptoms. Respiratory: Reports: no symptoms. Gastrointestinal: Reports: no symptoms. Genitourinary: Reports: no symptoms. Objective Last 24 Hrs of Vital Signs/I&O Vital Signs Date Time Temp Pulse Resp B/P B/P Pulse O2 O2 Flow FiO2 Mean Ox Delivery Rate 02/01 0644 99.3 84 16 118/62 96 Room Air 01/31 2208 100.1 85 20 120/60 96 Room Air 01/31 1915 100.2 01/31 1600 Room Air 01/31 1545 99.7 83 20 140/60 98 01/31 0929 99.2 01/31 0900 99.3 Intake & Output 02/01 1600 02/01 0800 02/01 0000 Intake Total 325 490 Output Total 350 875 Balance -25 -385 Intake, IV 225 90 Intake, Oral 100 400 Output, Urine 350 875 Physical Exam General Appearance: Alert, Oriented X3, Cooperative, No Acute Distress Cardiovascular: Regular Rate, Normal S1, Normal S2, No Murmurs Lungs: Clear to Auscultation Abdomen: Soft Neurological: Sensation Intact Extremities: her right hip open wound appears normal Left hip stage I ulcer Current Medications: Current Medications Sig/Rosa Start time Last Medication Dose Route Stop Time Status Admin Acetaminophen 1,000 MG Q6P PRN 01/30 1430 AC 01/31 N/A 1 UNIT IV 0542 Acetaminophen 650 MG Q6P PRN 01/29 0130 AC 01/30 PO 1403 Brimonidine Tartrate 1 GTT BID 01/30 1115 AC 02/01 OPH 0808 Calcium Carbonate 1,250 MG QAM 01/29 0900 AC 02/01 PO 0810 Diphenhydramine HCl 25 MG ONCE ONE 01/31 2045 DC 01/31 IV 01/31 2046 2158 Dorzolamide HCl 1 GTT BID 01/30 1115 AC 02/01 OPH 0809 Heparin Sodium 2,900 UNIT BOLUS ONE 02/01 0450 DC 02/01 (Porcine) IV 02/01 0451 0514 Heparin Sodium 25,000 UNIT Q24H 01/31 1530 AC 01/31 (Porcine) IV 1930 Sodium Chloride 500 ML Hydroxychloroquine 200 MG BID 01/29 09 AC 02/01 Sulfate PO 0810 Latanoprost 1 GTT AT BEDTIME 01/29 2100 AC 01/31 OPH 2159 Levothyroxine Sodium 0.112 MG DAILY 01/29 0900 AC 02/01 PO 0810 Lidocaine 1 ML .STK-MED ONE 01/31 1458 DC ID 01/31 1459 Lorazepam 0.5 MG AT BEDTIME 01/29 2100 AC 01/31 PO 02/05 2059 215 Potassium Chloride 40 MEQ ONCE ONE 01/31 1945 DC 01/31 PO 01/31 194 215 Timolol Maleate 1 GTT QAM 01/29 0900 AC 02/01 OPH 0809 Vancomycin HCl 1,000 MG Q24H 01/31 1015 AC 01/31 Sodium Chloride 250 ML IV 1036 Last 24 Hrs of Lab/Black Results Last 24 Hrs of Labs/Mics: Laboratory Tests 02/01/18 0745: Sodium Pending, Potassium Pending, Chloride Pending, Carbon Dioxide Pending, Anion Gap Pending, BUN Pending, Creatinine Pending, BUN/Creatinine Ratio Pending , APTT Pending, CBC w Diff Pending, WBC Pending, RBC Pending, Hgb Pending, Hct Pending, MCV Pending, MCH Pending, MCHC Pending, RDW Pending, Plt Count Pending, MPV Pending 02/01/18 0145: APTT 60 H 01/31/18 1624: APTT 27 01/31/18 1535: PT Cancelled, INR Cancelled 01/31/18 1450: Fluid Glucose 92, Fluid Total Protein 2.2, Fluid LDH 694 01/31/18 1250: Lymphocytes 17, % Normal PMNs 63, Misc Hematology Test , Fluid WBC 51 H, Fld Total RBCs Counted 73 H Microbiology 01/31 2200 BLOOD: Blood Culture - RECD 02/01 2140 BLOOD: Blood Culture - RECD 01/31 1450 BODY FLUID: Body Fluid Culture - RES 01/31 145 BODY FLUID: Gram Stain - RES Assessment/Plan Assessment: 82 yo F with a PMH of anxiety, hypothyroidism, dementia, depression, obstructive uropathy, ESBL and MRSA [facility] with a fever of 102.5 and lethargy. - CXR, head CT negative -CT abd - Thick-walled appearance of the rectum with mild surrounding stranding; this could reflect a proctitis in the proper clinical setting Problem list: Sepsis-MRSA possible right hip joint processes infection. AMS Anemia History of UTI ESBL History of MRSA Assessment and Plan: -Gram-positive cocci in clusters in blood- Blood cultures growing MRSA.Patient underwent ultrasound of the right hip which showed small amount of effusion. Effusion was drained and sent for study which showed WBC of 52 with 73 RBC and 694 LDH. Unlikely this is a source for her infection. Patient will be followed by infectious disease doctor and orthopedic. We will continue vancomycin for now. Patient has faint rash over the face both on right and left side. This can be secondary due to medication. She denies itching. For now we will closely monitor. -Holding antipsychotic/anti-depressive medications. restart as mental status improves -monitor H/H (7.8/24.3). normal iron studies. elevated retic -cont wound care and f/u wound care/imaging records -Ativan at bedtime for agitation. -Called [facility] who wouldn't confirm why the patient is on hydroxychloroquine/ Winters catheter/vancomycin allergy. -discuss with family regarding end of care issues. -monitor electrolytes and replnish as needed I spoke to her son Ovi Ortiz over the phone and updated the patient medical condition. We will discuss goals of care with the patient family today. Update-spoke to him her son Ovi Ortiz and his and updated the patient's condition. At length goals of care was discussed with the patient and family. Her surgeon Ovi Ortiz would like to continue current management and wanted to discuss with his family regarding comfort care in future. Problem List: 1. Sepsis 2. Bacteremia due to Gram-positive bacteria Pain Ratin Pain Location: right hip Pain Goal: Remain pain free Pain Plan: tylenol Tomorrow's Labs & Rationales: cbc,bep
[2018-02-01 08:25] LABS: ABSOLUTE BASOPHIL COUNT 0 /CUMM (0.0-0.2); ABSOLUTE EOSINOPHIL COUNT 0.1 /CUMM (0.0-0.7); ABSOLUTE GRANULOCYTE CT 3.8 /CUMM (1.4-6.5); ABSOLUTE LYMPH COUNT 0.9 /CUMM (1.2-3.4); ABSOLUTE MONOCYTE COUNT 0.5 /CUMM (0.10-0.60); BASOPHIL % 0.5 % (0.0-2.0); EOSINOPHIL % 2.6 % (0-5); GRANULOCYTE % 70.6 % (42.2-75.2); MEAN CORPUSCULAR HGB 25.9 PG (27.0-31.0); MEAN CORPUSCULAR HGB CONC 32.7 G/DL (33.0-37.0); MEAN CORPUSCULAR VOLUME 79.1 FL (81.0-99.0); MEAN PLATELET VOLUME 7.4 FL (7.4-10.4); PLATELET COUNT 436 /CUMM (130-400); RED BLOOD CELL CT 2.77 /CUMM (4.20-5.40); WHITE BLOOD CELL COUNT 5.4 /CUMM (4.8-10.8)
[2018-02-01 08:48] LABS: HEMATOCRIT 21.9 % (37-47)
[2018-02-01 09:12] LABS: PTT > 120 SEC (25-37)
--- NOTE | 2018-02-01 10:34 | PN- Att Addend ---
Attending Addendum Attending Brief Note Seems more comfortable, not complaining of any pain this morning Temp max 100.1 last evening, overnight afebrile and other vital signs are stable. New finding patient has DVT in the left lower extremity even though the leg is not hurting at this time. She is a little anemic will monitor closely but it does not be any signs of acute leading. White count within normal limits. Awaiting results of the culture of the aspirate of the left hip will continue recommendations from infectious disease Intake & Output 02/01 1600 02/01 1600 01/31 04001/30 1600 01/30 040 Intake Total 325 490 670 268 306 7043 Output Total 350 875 950 725 Balance -25 -385 -280 600 -85 1000 Intake, IV 225 90 250 500 400 400 Intake, Oral 100 400 420 100 240 600 Number 0 Bowel Movements Output, Urine 350 875 950 725 Current Medications Sig/Rosa Start time Last Medication Dose Route Stop Time Status Admin Acetaminophen 1,000 MG Q6P PRN 01/30 1430 AC 01/31 N/A 1 UNIT IV 0542 Acetaminophen 650 MG Q6P PRN 01/29 0130 AC 01/30 PO 1403 Brimonidine Tartrate 1 GTT BID 01/30 1115 AC 02/01 OPH 0808 Calcium Carbonate 1,250 MG QAM 01/29 0900 AC 02/01 PO 0810 Diphenhydramine HCl 25 MG ONCE ONE 01/31 2045 DC 01/31 IV 01/31 204 2158 Dorzolamide HCl 1 GTT BID 01/30 1115 AC 02/01 OPH 0809 Heparin Sodium 2,900 UNIT BOLUS ONE 02/01 0450 DC 02/01 (Porcine) IV 02/01 0451 0514 Heparin Sodium 25,000 UNIT Q24H 01/31 1530 AC 01/31 (Porcine) IV 1930 Sodium Chloride 500 ML Hydroxychloroquine 200 MG BID 01/29 09 AC 02/01 Sulfate PO 0810 Latanoprost 1 GTT AT BEDTIME 01/29 2100 AC 01/31 OPH 2159 Levothyroxine Sodium 0.112 MG DAILY 01/29 09 AC 02/01 PO 0810 Lidocaine 1 ML .STK-MED ONE 01/31 1458 DC ID 01/31 1459 Lorazepam 0.5 MG AT BEDTIME 01/29 2100 AC 01/31 PO 02/05 Potassium Chloride 40 MEQ ONCE ONE 01/31 1945 DC 01/31 PO 01/31 Timolol Maleate 1 GTT QAM 01/29 0900 AC 02/01 OPH 0809 Vancomycin HCl 1,000 MG Q24H 01/31 1015 AC 01/31 Sodium Chloride 250 ML IV 1036 Laboratory Tests 02/01/18 0745: Anion Gap 9, Estimated GFR > 60, BUN/Creatinine Ratio 23.3, APTT > 120 *H, CBC w Diff NO MAN DIFF REQ, RBC 2.77 L, MCV 79.1 L, MCH 25.9 L, MCHC 32.7 L, RDW 17.0 H, MPV 7.4, Gran % 70.6, Lymphocytes % 17.2 L, Monocytes % 9.1, Eosinophils % 2.6, Basophils % 0.5, Absolute Granulocytes 3.8, Absolute Lymphocytes 0.9 L, Absolute Monocytes 0.5, Absolute Eosinophils 0.1, Absolute Basophils 0 02/01/18 0145: APTT 60 H 01/31/18 1624: APTT 27 01/31/18 1535: PT Cancelled, INR Cancelled 01/31/18 1450: Fluid Glucose 92, Fluid Total Protein 2.2, Fluid LDH 694 01/31/18 1250: Lymphocytes 17, % Normal PMNs 63, Misc Hematology Test , Fluid WBC 51 H, Fld Total RBCs Counted 73 H 01/31/18 0631: Anion Gap 12, Estimated GFR > 60, BUN/Creatinine Ratio 26.7 H, CBC w Diff NO MAN DIFF REQ, RBC 2.89 L, MCV 78.6 L, MCH 26.2 L, MCHC 33.3, RDW 17.3 H, MPV 7.6, Gran % 80.3 H, Lymphocytes % 9.7 L, Monocytes % 8.9, Eosinophils % 0.8, Basophils % 0.3, Absolute Granulocytes 3.9, Absolute Lymphocytes 0.5 L, Absolute Monocytes 0.4, Absolute Eosinophils 0, Absolute Basophils 0 01/30/18 0823: Anion Gap 12, Estimated GFR > 60, BUN/Creatinine Ratio 36.7 H, CBC w Diff NO MAN DIFF REQ, RBC 2.98 L, MCV 80.7 L, MCH 26.3 L, MCHC 32.6 L, RDW 17.5 H, MPV 7.6, Gran % 89.2 H, Lymphocytes % 4.9 L, Monocytes % 5.0, Eosinophils % 0.2, Basophils % 0.7, Absolute Granulocytes 8.0 H, Absolute Lymphocytes 0.4 L, Absolute Monocytes 0.5, Absolute Eosinophils 0, Absolute Basophils 0.1 Microbiology 01/31 2200 BLOOD: Blood Culture - RECD 02/01 2140 BLOOD: Blood Culture - RECD 01/31 1450 BODY FLUID: Body Fluid Culture - RES 01/31 145 BODY FLUID: Gram Stain - RES 01/30 0850 BLOOD: Blood Culture - RES 01/30 08 BLOOD: Blood Culture - RES Vital Signs Date Time Temp Pulse Resp B/P B/P Pulse O2 O2 Flow FiO2 Mean Ox Delivery Rate 02/01 0644 99.3 84 16 118/62 96 Room Air 01/31 2208 100.1 85 20 120/60 96 Room Air 01/31 1915 100.2 01/31 1600 Room Air 01/31 1545 99.7 83 20 140/60 98
--- NOTE | 2018-02-01 11:02 | PN- Infect Dx ---
Subjective Subjective: T-max 100.2. She offers no complaints. She apparently developed a nonpruritic rash around her face and upper and lower extremities last night, with no associated complaints. A left lower extremity DVT was identified yesterday and she was begun on Heparin. She has been requiring straight catheterizations for urinary retention since the removal of her Winters catheter. Objective Last 24 Hrs of Vital Signs/I&O Vital Signs Date Time Temp Pulse Resp B/P B/P Pulse O2 O2 Flow FiO2 Mean Ox Delivery Rate 02/01 0644 99.3 84 16 118/62 96 Room Air 01/31 2208 100.1 85 20 120/60 96 Room Air 01/31 1915 100.2 01/31 1600 Room Air 01/31 1545 99.7 83 20 140/60 98 Intake & Output 02/01 1600 02/01 0800 02/01 0000 Intake Total 325 490 Output Total 350 875 Balance -25 -385 Intake, IV 225 90 Intake, Oral 100 400 Output, Urine 350 875 Physical Exam Other Physical Findings: She appears comfortable in no acute distress Skin mild rash on her face Lungs are clear Heart regular rhythm with a 2/6 systolic ejection murmur Abdomen is soft, nontender with positive bowel sounds Back right sacral decubitus with no surrounding inflammation Extremities left groin adipose-like mass, with no overlying erythema or tenderness; right hip with no overlying inflammation Results Last 24 Hours of Lab Results: Laboratory Tests 02/01 02/01 01/31 0745 0145 1624 Chemistry Sodium (137 - 145 mmol/L) 136 L Potassium (3.5 - 5.1 mmol/L) 3.6 Chloride (98 - 107 mmol/L) 105 Carbon Dioxide (22 - 30 mmol/L) 22 Anion Gap (5 - 16) 9 BUN (7 - 17 mg/dL) 7 Creatinine (0.5 - 1.0 mg/dL) 0.3 L Estimated GFR (>60 ml/min) > 60 BUN/Creatinine Ratio (7 - 25 %) 23.3 Coagulation APTT (25 - 37 SEC) > 120 *H 60 H 27 Hematology CBC w Diff NO MAN DIFF REQ WBC (4.8 - 10.8 /CUMM) 5.4 RBC (4.20 - 5.40 /CUMM) 2.77 L Hgb (12.0 - 16.0 G/DL) 7.2 *L Hct (37 - 47 %) 21.9 L MCV (81.0 - 99.0 FL) 79.1 L MCH (27.0 - 31.0 PG) 25.9 L MCHC (33.0 - 37.0 G/DL) 32.7 L RDW (11.5 - 14.5 %) 17.0 H Plt Count (130 - 400 /CUMM) 436 H MPV (7.4 - 10.4 FL) 7.4 Gran % (42.2 - 75.2 %) 70.6 Lymphocytes % (20.5 - 51.1 %) 17.2 L Monocytes % (1.7 - 9.3 %) 9.1 Eosinophils % (0 - 5 %) 2.6 Basophils % (0.0 - 2.0 %) 0.5 Absolute Granulocytes (1.4 - 6.5 /CUMM) 3.8 Absolute Lymphocytes (1.2 - 3.4 /CUMM) 0.9 L Absolute Monocytes (0.10 - 0.60 /CUMM) 0.5 Absolute Eosinophils (0.0 - 0.7 /CUMM) 0.1 Absolute Basophils (0.0 - 0.2 /CUMM) 0 01/31 01/31 01/31 1535 1450 1250 Coagulation PT Cancelled INR Cancelled Hematology Lymphocytes (%) 17 % Normal PMNs (%) 63 Misc Hematology Test (%) Other Body Source Fluid WBC (0 - 5 /CUMM) 51 H Fld Total RBCs Counted (0 /CUMM) 73 H Fluid Glucose (mg/dL) 92 Fluid Total Protein (g/dL) 2.2 Fluid LDH (U/L) 694 Last 24 Hours of Black Results: Blood cultures January 30 negative Blood cultures January 31 negative Blood cultures January 29 positive for MRSA with an BLACK of 1.5 Right hip joint aspiration January 31 negative Recent Imaging Studies: Doppler of the left lower extremity January 31 positive for DVT above the level of the knee joint extending to the common femoral vein Assessment/Plan ID Impression: Stable, with temperatures lower grade and with her white blood cell count remaining normal, on Vancomycin, essentially Day 3 of treatment for MRSA sepsis, though she did not receive a dose 2 days ago. The source of her sepsis is unclear, with the right hip aspiration yesterday yielding clear fluid, with the culture so far negative; therefore the significance of the complex fluid-filled tract extending from the subcutaneous tissues, possibly into the hip joint, is unclear. Further evaluation, including MRI of the spine, given her previous complaints of back pain, hardware in place, and the sacral decubitus, though her hardware may limit this study, and LUIS ANGEL may need to be considered. The etiology of the rash noted last night is unclear. She does have a history of a Vancomycin allergy, which was not able to be substantiated, and, if her rash recurs, alternatives to Vancomycin may need to be considered. Suggestion: 1. Follow-up final culture from the right hip joint aspiration. 2. Consider MRI of the lumbosacral spine and/or white blood cell scan (will discuss) 3. Continue Vancomycin
[2018-02-01 14:44] LABS: ABSOLUTE BASOPHIL COUNT 0 /CUMM (0.0-0.2); ABSOLUTE EOSINOPHIL COUNT 0.1 /CUMM (0.0-0.7); ABSOLUTE GRANULOCYTE CT 4.5 /CUMM (1.4-6.5); ABSOLUTE LYMPH COUNT 1.1 /CUMM (1.2-3.4); ABSOLUTE MONOCYTE COUNT 0.6 /CUMM (0.10-0.60); BASOPHIL % 0.5 % (0.0-2.0); EOSINOPHIL % 2.3 % (0-5); GRANULOCYTE % 70.9 % (42.2-75.2); MEAN CORPUSCULAR HGB 25.7 PG (27.0-31.0); MEAN CORPUSCULAR HGB CONC 32.4 G/DL (33.0-37.0); MEAN CORPUSCULAR VOLUME 79.4 FL (81.0-99.0); PLATELET COUNT 460 /CUMM (130-400); RBC DISTRIBUTION WIDTH 17.7 % (11.5-14.5); RED BLOOD CELL CT 2.79 /CUMM (4.20-5.40); WHITE BLOOD CELL COUNT 6.3 /CUMM (4.8-10.8)
[2018-02-01 15:04] LABS: HEMATOCRIT 22.1 % (37-47)
--- NOTE | 2018-02-01 15:04 | Discharge Summary ---
Visit Information Visit Dates Admission Date: 01/29/18 Discharge Date: 02/05/18 Hospital Course Course Attending Physician: Edward John MD Primary Care Physician: Edward John MD Hospital Course: Ms. Ortiz is a 82-year-old woman, snf resident, with history of dementia, obstructive uropathy, chronic pain, sacral decubitus ulcer of unknown duration, recurrent UTIs, was seen in the ED 5 weeks prior to admission for an x -ray, which revealed a right hip dislocation, and was admitted on January 29 because of fever for several days, lethargy and hypotension. In the ED, on January 29 blood cultures were sent which came back positive for gram-positive cocci in clusters. On admission, patient was afebrile. Laboratory revealed WBC 22,000, H&H 8 and 25, BUN/creatinine 9 and 0.4. Normal liver enzymes. Urinalysis revealed few RBCs, negative nitrites and leukocyte esterase. Chest x-ray was negative. Head CT was unremarkable. CT of the abdomen pelvis revealed a right hip arthroplasty, with superior dislocation of the femoral head component; thick-walled rectum with mild surrounding stranding. Initially, patient was thought to have sepsis from ESBL versus MRSA bacteremia. She was started on clindamycin (given concerns for vancomycin allergy in the past) for MRSA coverage as well as meropenem for ESBL coverage. Patient was also evaluated by ID physician, and in the beginning her sepsis was thought to be of unclear etiology. Her blood cultures came back positive for MRSA and she was started on vancomycin on the same day of admission. While on vancomycin, patient continued to have fever spikes, while the source of sepsis remained unclear. Given her right hip prosthesis and dislocated right hip, part of right hip infection was entertained. Following that, ultrasound of the hip reveals small right hip effusion and a aspiration obtained reveals negative for any infection. Patient was also evaluated for her chronic right hip hemiarthroplasty dislocation by orthopedic service and it was ascertained in her condition, revision hip surgery would not be indicated, especially with the chronicity of her injury and nonambulatory status. While performing ultrasound of the left hip, patient was also found to have a DVT in her left lower extremity. Following that the patient was started on IV heparin. By 02/01/2018, patient began to defervesce while on vancomycin. Given her bacteremia, an echocardiogram was also obtained, results attached; and remained negative for findings of infective endocarditis. If patient continues to be bacteremic, she may require a LUIS ANGEL study. On 02/05/2018, patient continues to be on IV heparin, but she started dropping her hemoglobin and hematocrit to as low as 6 and 18. Following this, ongoing goals of care decisions with the son were further discussed. Following this, patient's son requested for hospice evaluation. Goals of care: Patient will be discharged to short-term rehabilitation. Patient will be be a candidate for inpatient hospice. Allergies: Coded Allergies: adhesive (UNKNOWN 12/21/17) celecoxib (UNKNOWN 12/21/17) methotrexate (UNKNOWN 12/21/17) morphine (UNKNOWN 12/21/17) propoxyphene (UNKNOWN 12/21/17) sulfamethazine (UNKNOWN 12/21/17) vancomycin (UNKNOWN 12/21/17) Pertinent Lab Results: Echocardiogram: CONCLUSIONS Normal left ventricular size, wall thickness and systolic function with no obvious regional wall motion abnormalities. Normal left ventricular diastolic filling pattern for age. The ejection fraction is visually estimated at 60 %. The left atrium is mildly enlarged. There is trace mitral regurgitation. Moderate aortic sclerosis without stenosis. There is trace tricuspid regurgitation. Pulmonary artery systolic pressure is normal, estimated at 25 mmHg. Normal pericardium without effusion. Proximal ascending aorta at the upper limit of normal for patient size. Disposition Summary Disposition Principal Diagnosis: MRSA bacteremia Additional Diagnosis: Small right hip effusion Discharge Disposition: SNF Discharge Instructions General Discharge Information Code Status: Do Not Resucitate/Intubat Patient's Diet: Heart healthy diet Patient's Activity: As tolerated. Follow-Up Instructions/Appts: Follow-up with Dr. John as an outpatient. Medications at Discharge Discharge Medications: Stop taking the following medications: Hydroxychloroquine Sulfate (Hydroxychloroquine Sulfate) 200 MG TABLET ORAL TWICE DAILY Continue taking these medications: Levothyroxine Sodium (Synthroid) 112 MCG TABLET 1 Tablet ORAL DAILY Comments: Last Taken: 02/05/18 Time: 9:55 AM Calcium Carbonate (TUMS) 200 MG CALCIUM (500 MG) TAB.CHEW 1,200 Milligram ORAL Every Morning Comments: Last Taken: 02/05/18 Time: 9:55 AM Donepezil HCl (Aricept) 5 MG TABLET 1 Tablet ORAL Every Morning Comments: NOT GIVEN IN HOSPITAL Multivitamin (Multivitamins) 1 EACH CAPSULE 1 Tablet ORAL DAILY Comments: NOT GIVEN IN HOSPITAL Sennosides/Docusate Sodium (Senexon-S Tablet) 8.6 MG-50 MG TABLET 1 Tablet ORAL DAILY Comments: Last Taken: 02/04/18 Time: 9:30 AM Timolol Maleate (Timolol Maleate) 0.5 % DROPS 1 Drop In the eye Every Morning Instructions: INTO L EYE Comments: Last Taken: 02/05/18 Time: 9:30 AM Memantine HCl (Namenda) 10 MG TABLET 5 Milligram ORAL TWICE DAILY Comments: NOT GIVEN IN HOSPITAL Brinzolamide/Brimonidine Tart (Simbrinza 1%-0.2% Eye Drops) 1 %-0.2 % DROPS.SUSP 1 DROP Both Eyes TWICE DAILY Comments: Last Taken: 02/05/18 Time: 8:00 AM Lorazepam (Ativan) 0.5 MG TABLET 0.5 Tablet ORAL TWICE DAILY Comments: Last Taken: 02/04/18 Time: 9:15 PM Bimatoprost (Lumigan) 0.01 % DROPS 1 Drop In the eye Every night Comments: Last Taken: 02/04/18 Time: 8:00 PM Quetiapine Fumarate (Quetiapine Fumarate) 25 MG TABLET 1 Tablet ORAL Every night Risperidone (Risperdal) 1 MG TABLET 1 Tablet ORAL Every night Comments: NOT GIVEN IN HOSPITAL Magnesium Hydroxide (Milk Of Magnesia) 400 MG/5 ML ORAL.SUSP 30 Milliliters ORAL DAILY as needed for CONSTIPATION Comments: NOT GIVEN IN HOSPITAL Bisacodyl (Bisac-Evac) 10 MG SUPP.RECT 1 SUPPOSITORY RECTALLY DAILY as needed for CONSTIPATION Instructions: IF M.O.M. INEFFECTIVE Comments: Last Taken: 02/03/18 Time: 8:30 PM Na Phos,M-B/Na Phos,Di-Ba (Fleet Enema) 19 GRAM-7 GRAM/118 ML ENEMA 1 Enema RECTAL GIVE ONCE as needed for CONSTIPATION Comments: NOT GIVEN IN HOSPITAL Mirtazapine (Remeron) 15 MG TABLET 0.5 Tablet ORAL Every night Comments: NOT GIVEN IN HOSPITAL Quetiapine Fumarate (Seroquel) 25 MG TABLET 0.5 Tablet ORAL TWICE DAILY Comments: NOT GIVEN IN HOSPITAL Sertraline HCl (Sertraline HCl) 50 MG TABLET 1 Tablet ORAL DAILY Comments: NOT GIVEN IN HOSPITAL Trazodone HCl (Trazodone HCl) 50 MG TABLET 12.5 Tablet ORAL EVERY 8 HOURS as needed for agitation Comments: NOT GIVEN IN HOSPITAL Copies To: Liliya CHEN,Juan Alberto Dotson; Alvaro CHEN,Edward Attending MD Review Statement Documenting Attending: Edward John MD
[2018-02-01 15:14] VITALS: BP 140/78
[2018-02-01 15:19] LABS: PTT 73 SEC (25-37)
[2018-02-01 21:44] LABS: ABSOLUTE BASOPHIL COUNT 0 /CUMM (0.0-0.2); ABSOLUTE EOSINOPHIL COUNT 0.1 /CUMM (0.0-0.7); ABSOLUTE GRANULOCYTE CT 5.6 /CUMM (1.4-6.5); ABSOLUTE LYMPH COUNT 1.1 /CUMM (1.2-3.4); ABSOLUTE MONOCYTE COUNT 0.7 /CUMM (0.10-0.60); BASOPHIL % 0.5 % (0.0-2.0); EOSINOPHIL % 1.9 % (0-5); GRANULOCYTE % 74.1 % (42.2-75.2); HEMATOCRIT 23.1 % (37-47); MEAN CORPUSCULAR HGB 25.9 PG (27.0-31.0); MEAN CORPUSCULAR HGB CONC 32.5 G/DL (33.0-37.0); MEAN CORPUSCULAR VOLUME 79.6 FL (81.0-99.0); MEAN PLATELET VOLUME 7.8 FL (7.4-10.4); PLATELET COUNT 481 /CUMM (130-400); RBC DISTRIBUTION WIDTH 17.4 % (11.5-14.5); RED BLOOD CELL CT 2.91 /CUMM (4.20-5.40); WHITE BLOOD CELL COUNT 7.6 /CUMM (4.8-10.8)
[2018-02-01 23:05] VITALS: BP 152/74
[2018-02-02 02:13] LABS: PTT > 120 SEC (25-37)
[2018-02-02 06:44] VITALS: BP 138/72
--- NOTE | 2018-02-02 08:18 | PN- Housestaff ---
Subjective Follow-up For: Sepsis with MRSA Complaints: no complaints Subjective: Patient seen and examined at bedside. No overnight events. Patient appears confused. Not able to follow commands. Oriented 1. Review of Systems Constitutional: Reports: no symptoms, see HPI. Objective Last 24 Hrs of Vital Signs/I&O Vital Signs Date Time Temp Pulse Resp B/P B/P Pulse O2 O2 Flow FiO2 Mean Ox Delivery Rate 02/02 1420 97.8 66 20 140/68 95 Room Air 02/02 1025 Room Air 02/02 1022 Room Air 02/02 0800 Room Air 02/02 0644 98.3 76 16 138/72 94 Room Air 02/01 2305 99.8 80 16 152/74 97 Room Air 02/01 1514 99.1 80 18 140/78 97 Intake & Output 02/02 1600 02/02 0800 02/02 0000 Intake Total 685.2 235 192.4 Output Total 325 550 825 Balance 360.2 -315 -632.6 Intake, IV 385.2 135 92.4 Intake, Oral 300 100 100 Output, Urine 325 550 825 Physical Exam General Appearance: Alert, No Acute Distress Cardiovascular: Regular Rate, Normal S1, Normal S2 Lungs: Clear to Auscultation Abdomen: Soft, No Tenderness, No Hepatospenomegaly Neurological: Sensation Intact Extremities: rt hip- wound looks normal with no erythema. Vascular: Normal Pulses Current Medications: Current Medications Sig/Rosa Start time Last Medication Dose Route Stop Time Status Admin Acetaminophen 650 MG .STK-MED ONE 02/01 2146 DC PO 02/01 2147 Acetaminophen 1,000 MG Q6P PRN 01/30 1430 01/31 N/A 1 UNIT IV 0542 Acetaminophen 650 MG Q6P PRN 01/29 0130 AC 02/01 PO 2159 Brimonidine Tartrate 1 GTT BID 01/30 1115 AC 02/02 OPH 0836 Calcium Carbonate 1,250 MG QAM 01/29 0900 AC 02/02 PO 0837 Docusate Sodium 100 MG BID 02/02 1330 AC 02/02 PO 1457 Dorzolamide HCl 1 GTT BID 01/30 1115 AC 02/02 OPH 0836 Heparin Sodium 2,900 UNIT ONCE ONE 02/02 0945 DC 02/02 (Porcine) IV 02/02 0946 1001 Heparin Sodium 25,000 UNIT Q24H 01/31 1530 AC 02/02 (Porcine) IV 0925 Sodium Chloride 500 ML Hydroxychloroquine 200 MG BID 01/29 09 AC 02/02 Sulfate PO 0838 Latanoprost 1 GTT AT BEDTIME 01/29 2100 AC 02/01 OPH 2200 Levothyroxine Sodium 0.112 MG DAILY 01/29 0900 AC 02/02 PO 0838 Lorazepam 0.5 MG AT BEDTIME 01/29 2100 AC 02/01 PO 02/05 Polyethylene Glycol 17 GM DAILY 02/02 1330 AC 02/02 PO 1457 Senna/Docusate Sodium 1 TAB BID 02/02 1328 AC 02/02 PO 1457 Timolol Maleate 1 GTT QAM 01/29 09 AC 02/02 OPH 0835 Vancomycin HCl 1,000 MG Q24H 01/31 1015 AC 02/02 Sodium Chloride 250 ML IV 0925 Last 24 Hrs of Lab/Black Results Last 24 Hrs of Labs/Mics: Laboratory Tests 02/02/18 1320: APTT > 120 *H 02/02/18 0630: Anion Gap 9, Estimated GFR > 60, BUN/Creatinine Ratio 16.7, APTT 55 H, CBC w Diff NO MAN DIFF REQ, RBC 2.88 L, MCV 78.6 L, MCH 26.1 L, MCHC 33.2, RDW 17.3 H, MPV 7.1 L, Gran % 70.8, Lymphocytes % 15.4 L, Monocytes % 9.0, Eosinophils % 4.0, Basophils % 0.8, Absolute Granulocytes 4.0, Absolute Lymphocytes 0.9 L, Absolute Monocytes 0.5, Absolute Eosinophils 0.2, Absolute Basophils 0 02/02/18 0125: APTT > 120 *H 02/01/18 2020: CBC w Diff NO MAN DIFF REQ, RBC 2.91 L, MCV 79.6 L, MCH 25.9 L, MCHC 32.5 L, RDW 17.4 H, MPV 7.8, Gran % 74.1, Lymphocytes % 14.2 L, Monocytes % 9.3, Eosinophils % 1.9, Basophils % 0.5, Absolute Granulocytes 5.6, Absolute Lymphocytes 1.1 L, Absolute Monocytes 0.7 H, Absolute Eosinophils 0.1, Absolute Basophils 0 Assessment/Plan Assessment: 82 yo F with a PMH of anxiety, hypothyroidism, dementia, depression, obstructive uropathy, ESBL and MRSA who presents from [place] to the ED with a fever of 102.5 and lethargy. - CXR, head CT negative -CT abd - Thick-walled appearance of the rectum with mild surrounding stranding; this could reflect a proctitis in the proper clinical setting Problem list: Sepsis with MRSA AMS Anemia History of UTI ESBL History of MRSA Assessment and Plan: * Blood cultures positive for MRSA. Source of infection unknown at this point. Patient underwent ultrasound of the right hip which showed small amount of effusion and it was drained with no evidence of any infection. Fluid culture is not growing any organisms so far. Patient is on vancomycin day 3. We will DO vancomycin trough level on . Patient vital stable, with no fever in the past 24 hours. Patient is on IV heparin for left leg DVT. ID on board * Patient has Dilaudid pump in her left lower abdomen which was inserted 15 years ago. Details unknoN. Infectious disease doctor suggested MRI of the spine but since she has Dilaudid pump. Not sure if it is MRI compatible. Patient's son doesn't have any further details. * Monitor hemoglobin. Today hemoglobin is 7.5 with hematocrit 32.7. * Holding antipsychotic/anti-depressive medications. restart as mental status improves * cont wound care and f/u wound care/imaging records * Ativan at bedtime for agitation. - Called [facility]weiit who wouldn't confirm why the patient is on hydroxychloroquine/ Winters catheter/vancomycin allergy. Goals of care was discussed with the patient son Ovi ALFONSO. He said he will discuss with his family regarding proceeding for comfort care. Problem List: 1. Bacteremia due to Gram-positive bacteria 2. Altered mental status Pain Ratin Pain Location: NONE Pain Goal: Remain pain free Pain Plan: TYLENOL Tomorrow's Labs & Rationales: CBC,BEP
[2018-02-02 08:19] LABS: ABSOLUTE BASOPHIL COUNT 0 /CUMM (0.0-0.2); ABSOLUTE EOSINOPHIL COUNT 0.2 /CUMM (0.0-0.7); ABSOLUTE LYMPH COUNT 0.9 /CUMM (1.2-3.4); ABSOLUTE MONOCYTE COUNT 0.5 /CUMM (0.10-0.60); BASOPHIL % 0.8 % (0.0-2.0); GRANULOCYTE % 70.8 % (42.2-75.2); HEMATOCRIT 22.7 % (37-47); MEAN CORPUSCULAR HGB 26.1 PG (27.0-31.0); MEAN CORPUSCULAR HGB CONC 33.2 G/DL (33.0-37.0); MEAN CORPUSCULAR VOLUME 78.6 FL (81.0-99.0); MEAN PLATELET VOLUME 7.1 FL (7.4-10.4); PLATELET COUNT 472 /CUMM (130-400); RBC DISTRIBUTION WIDTH 17.3 % (11.5-14.5); RED BLOOD CELL CT 2.88 /CUMM (4.20-5.40); WHITE BLOOD CELL COUNT 5.7 /CUMM (4.8-10.8)
[2018-02-02 08:31] LABS: PTT 55 SEC (25-37)
--- NOTE | 2018-02-02 11:11 | PN- Att Addend ---
Attending Addendum Attending Brief Note No new complaints Temp max 99 1 my rest of the vital signs are stable. No new changes on physical. The origin of the sepsis still not found. Dr. Lovell following the patient with resident spoke to the son yesterday rethinking about comfort care will check if we still have to do the MRI suggested. Intake & Output 02/02 1600 02/02 0400 02/01 1600 02/01 0400 01/31 1600 01/31 0400 Intake Total 485 192.4 1713.6 490 670 600 Output Total 875 825 700 875 950 Balance -390 -632.6 1013.6 -385 -280 600 Intake, IV 385 92.4 613.6 90 250 500 Intake, Oral 576 328 1747 400 420 100 Number 0 Bowel Movements Output, Urine 875 825 700 875 950 Patient 160 lb Weight Current Medications Sig/Rosa Start time Last Medication Dose Route Stop Time Status Admin Acetaminophen 650 MG .STK-MED ONE 02/01 2146 DC PO 02/01 2147 Acetaminophen 1,000 MG Q6P PRN 01/30 1430 AC 01/31 N/A 1 UNIT IV 0542 Acetaminophen 650 MG Q6P PRN 01/29 0130 AC 02/01 PO 2159 Brimonidine Tartrate 1 GTT BID 01/30 1115 AC 02/02 OPH 0836 Calcium Carbonate 1,250 MG QAM 01/29 0900 AC 02/02 PO 0837 Dorzolamide HCl 1 GTT BID 01/30 1115 AC 02/02 OPH 0836 Heparin Sodium 2,900 UNIT ONCE ONE 02/02 0945 DC 02/02 (Porcine) IV 02/02 0946 1001 Heparin Sodium 25,000 UNIT Q24H 01/31 1530 AC 02/02 (Porcine) IV 0925 Sodium Chloride 500 ML Hydroxychloroquine 200 MG BID 01/29 09 AC 02/02 Sulfate PO 0838 Latanoprost 1 GTT AT BEDTIME 01/29 2100 AC 02/01 OPH 2200 Levothyroxine Sodium 0.112 MG DAILY 01/29 0900 AC 02/02 PO 0838 Lorazepam 0.5 MG AT BEDTIME 01/29 2100 AC 02/01 PO 02/05 205 2159 Timolol Maleate 1 GTT QAM 01/29 0900 AC 02/02 OPH 0835 Vancomycin HCl 1,000 MG Q24H 01/31 1015 AC 02/02 Sodium Chloride 250 ML IV 0925 Laboratory Tests 02/02/18 0630: Anion Gap 9, Estimated GFR > 60, BUN/Creatinine Ratio 16.7, APTT 55 H, CBC w Diff NO MAN DIFF REQ, RBC 2.88 L, MCV 78.6 L, MCH 26.1 L, MCHC 33.2, RDW 17.3 H, MPV 7.1 L, Gran % 70.8, Lymphocytes % 15.4 L, Monocytes % 9.0, Eosinophils % 4.0, Basophils % 0.8, Absolute Granulocytes 4.0, Absolute Lymphocytes 0.9 L, Absolute Monocytes 0.5, Absolute Eosinophils 0.2, Absolute Basophils 0 02/02/18 0125: APTT > 120 *H 02/01/18 2020: CBC w Diff NO MAN DIFF REQ, RBC 2.91 L, MCV 79.6 L, MCH 25.9 L, MCHC 32.5 L, RDW 17.4 H, MPV 7.8, Gran % 74.1, Lymphocytes % 14.2 L, Monocytes % 9.3, Eosinophils % 1.9, Basophils % 0.5, Absolute Granulocytes 5.6, Absolute Lymphocytes 1.1 L, Absolute Monocytes 0.7 H, Absolute Eosinophils 0.1, Absolute Basophils 0 02/01/18 1407: APTT 73 H, CBC w Diff NO MAN DIFF REQ, RBC 2.79 L, MCV 79.4 L, MCH 25.7 L, MCHC 32.4 L, RDW 17.7 H, MPV 7.0 L, Gran % 70.9, Lymphocytes % 16.7 L, Monocytes % 9.6 H, Eosinophils % 2.3, Basophils % 0.5, Absolute Granulocytes 4.5, Absolute Lymphocytes 1.1 L, Absolute Monocytes 0.6, Absolute Eosinophils 0.1, Absolute Basophils 0 02/01/18 0745: Anion Gap 9, Estimated GFR > 60, BUN/Creatinine Ratio 23.3, APTT > 120 *H, CBC w Diff NO MAN DIFF REQ, RBC 2.77 L, MCV 79.1 L, MCH 25.9 L, MCHC 32.7 L, RDW 17.0 H, MPV 7.4, Gran % 70.6, Lymphocytes % 17.2 L, Monocytes % 9.1, Eosinophils % 2.6, Basophils % 0.5, Absolute Granulocytes 3.8, Absolute Lymphocytes 0.9 L, Absolute Monocytes 0.5, Absolute Eosinophils 0.1, Absolute Basophils 0 02/01/18 0145: APTT 60 H 01/31/18 1624: APTT 27 01/31/18 1535: PT Cancelled, INR Cancelled 01/31/18 1450: Fluid Glucose 92, Fluid Total Protein 2.2, Fluid LDH 694 01/31/18 1250: Lymphocytes 17, % Normal PMNs 63, Misc Hematology Test , Fluid WBC 51 H, Fld Total RBCs Counted 73 H 01/31/18 0631: Anion Gap 12, Estimated GFR > 60, BUN/Creatinine Ratio 26.7 H, CBC w Diff NO MAN DIFF REQ, RBC 2.89 L, MCV 78.6 L, MCH 26.2 L, MCHC 33.3, RDW 17.3 H, MPV 7.6, Gran % 80.3 H, Lymphocytes % 9.7 L, Monocytes % 8.9, Eosinophils % 0.8, Basophils % 0.3, Absolute Granulocytes 3.9, Absolute Lymphocytes 0.5 L, Absolute Monocytes 0.4, Absolute Eosinophils 0, Absolute Basophils 0 Microbiology 01/31 2200 BLOOD: Blood Culture - RES 02/01 2140 BLOOD: Blood Culture - RES 01/31 1450 BODY FLUID: Body Fluid Culture - RES 01/31 1450 BODY FLUID: Gram Stain - RES Microbiology 01/31 2200 BLOOD: Blood Culture - RES 02/01 2140 BLOOD: Blood Culture - RES 01/31 1450 BODY FLUID: Body Fluid Culture - RES 01/31 1450 BODY FLUID: Gram Stain - RES Vital Signs Date Time Temp Pulse Resp B/P B/P Pulse O2 O2 Flow FiO2 Mean Ox Delivery Rate 02/02 1025 Room Air 02/02 1022 Room Air 02/02 0800 Room Air 02/02 0644 98.3 76 16 138/72 94 Room Air 02/01 2305 99.8 80 16 152/74 97 Room Air 02/01 1514 99.1 80 18 140/78 97
--- NOTE | 2018-02-02 13:11 | PN- Infect Dx ---
Subjective Subjective: Afebrile without complaints Objective Last 24 Hrs of Vital Signs/I&O Vital Signs Date Time Temp Pulse Resp B/P B/P Pulse O2 O2 Flow FiO2 Mean Ox Delivery Rate 02/02 1025 Room Air 02/02 1022 Room Air 02/02 0800 Room Air 02/02 0644 98.3 76 16 138/72 94 Room Air 02/01 2305 99.8 80 16 152/74 97 Room Air 02/01 1514 99.1 80 18 140/78 97 Intake & Output 02/02 1600 02/02 0800 02/02 0000 Intake Total 250 235 192.4 Output Total 325 550 825 Balance -75 -315 -632.6 Intake, IV 250 135 92.4 Intake, Oral 100 100 Output, Urine 325 550 825 Physical Exam Other Physical Findings: She appears comfortable in no acute distress Lungs are clear Heart regular rhythm with a 2/6 systolic ejection murmur Abdomen is soft, nontender with positive bowel sounds Extremities no cyanosis, clubbing or edema Results Last 24 Hours of Lab Results: Laboratory Tests 02/02 02/02 0630 0125 Chemistry Sodium (137 - 145 mmol/L) 138 Potassium (3.5 - 5.1 mmol/L) 3.5 Chloride (98 - 107 mmol/L) 104 Carbon Dioxide (22 - 30 mmol/L) 25 Anion Gap (5 - 16) 9 BUN (7 - 17 mg/dL) 5 L Creatinine (0.5 - 1.0 mg/dL) 0.3 L Estimated GFR (>60 ml/min) > 60 BUN/Creatinine Ratio (7 - 25 %) 16.7 Coagulation APTT (25 - 37 SEC) 55 H > 120 *H Hematology CBC w Diff NO MAN DIFF REQ WBC (4.8 - 10.8 /CUMM) 5.7 RBC (4.20 - 5.40 /CUMM) 2.88 L Hgb (12.0 - 16.0 G/DL) 7.5 L Hct (37 - 47 %) 22.7 L MCV (81.0 - 99.0 FL) 78.6 L MCH (27.0 - 31.0 PG) 26.1 L MCHC (33.0 - 37.0 G/DL) 33.2 RDW (11.5 - 14.5 %) 17.3 H Plt Count (130 - 400 /CUMM) 472 H MPV (7.4 - 10.4 FL) 7.1 L Gran % (42.2 - 75.2 %) 70.8 Lymphocytes % (20.5 - 51.1 %) 15.4 L Monocytes % (1.7 - 9.3 %) 9.0 Eosinophils % (0 - 5 %) 4.0 Basophils % (0.0 - 2.0 %) 0.8 Absolute Granulocytes (1.4 - 6.5 /CUMM) 4.0 Absolute Lymphocytes (1.2 - 3.4 /CUMM) 0.9 L Absolute Monocytes (0.10 - 0.60 /CUMM) 0.5 Absolute Eosinophils (0.0 - 0.7 /CUMM) 0.2 Absolute Basophils (0.0 - 0.2 /CUMM) 0 02/01 02/01 2020 1407 Coagulation APTT (25 - 37 SEC) 73 H Hematology CBC w Diff NO MAN DIFF REQ NO MAN DIFF REQ WBC (4.8 - 10.8 /CUMM) 7.6 6.3 RBC (4.20 - 5.40 /CUMM) 2.91 L 2.79 L Hgb (12.0 - 16.0 G/DL) 7.5 L 7.2 *L Hct (37 - 47 %) 23.1 L 22.1 L MCV (81.0 - 99.0 FL) 79.6 L 79.4 L MCH (27.0 - 31.0 PG) 25.9 L 25.7 L MCHC (33.0 - 37.0 G/DL) 32.5 L 32.4 L RDW (11.5 - 14.5 %) 17.4 H 17.7 H Plt Count (130 - 400 /CUMM) 481 H 460 H MPV (7.4 - 10.4 FL) 7.8 7.0 L Gran % (42.2 - 75.2 %) 74.1 70.9 Lymphocytes % (20.5 - 51.1 %) 14.2 L 16.7 L Monocytes % (1.7 - 9.3 %) 9.3 9.6 H Eosinophils % (0 - 5 %) 1.9 2.3 Basophils % (0.0 - 2.0 %) 0.5 0.5 Absolute Granulocytes (1.4 - 6.5 /CUMM) 5.6 4.5 Absolute Lymphocytes (1.2 - 3.4 /CUMM) 1.1 L 1.1 L Absolute Monocytes (0.10 - 0.60 /CUMM) 0.7 H 0.6 Absolute Eosinophils (0.0 - 0.7 /CUMM) 0.1 0.1 Absolute Basophils (0.0 - 0.2 /CUMM) 0 0 Last 24 Hours of Black Results: Blood cultures January 30 negative Blood cultures January 31 negative Right hip culture January 31 negative Assessment/Plan ID Impression: Stable, with temperatures and white blood cell count normal, on Vancomycin, essentially Day 4 of treatment for MRSA sepsis, though she did not receive a dose 3 days ago. The source of her sepsis is unclear, with the right hip aspiration 2 days ago yielding clear fluid, with the culture remaining negative; therefore the significance of the complex fluid-filled tract extending from the subcutaneous tissues, possibly into the hip joint, is unclear. Further evaluation, including MRI of the spine (if able to do, given her pain pump) with her previous complaints of back pain, hardware in place, and the sacral decubitus and LUIS ANGEL may need to be considered. The family is apparently considering comfort care, which would obviously affect the level of further workup. Suggestion: 1. Follow-up final culture from the right hip joint aspiration 2. Await decision regarding overall level of care 3. Further workup, for example MRI of the lumbosacral spine and/or white blood cell scan, based on above 4. Vancomycin trough level on February 04 5. Continue Vancomycin Delia Schulte MD will be covering over the weekend
[2018-02-02 14:20] VITALS: BP 140/68
[2018-02-02 14:28] LABS: PTT > 120 SEC (25-37)
[2018-02-02 21:05] LABS: PTT 43 SEC (25-37)
[2018-02-02 22:35] VITALS: BP 128/58
[2018-02-03 06:14] LABS: PTT > 120 SEC (25-37)
[2018-02-03 06:16] VITALS: BP 126/64
--- NOTE | 2018-02-03 09:34 | PN- Housestaff ---
See Addendum Subjective Follow-up For: MRSA bacteremia Subjective: No overnight events. Patient oriented 1, unable to answer questions appropriately. She has no complaints though. Review of Systems Constitutional: Reports: no symptoms. EENTM: Reports: no symptoms. Cardiovascular: Reports: no symptoms. Respiratory: Reports: no symptoms. Gastrointestinal: Reports: no symptoms. Genitourinary: Reports: no symptoms. Musculoskeletal: Reports: no symptoms. Skin: Reports: no symptoms. Neurological/Psychological: Reports: no symptoms. Hematologic/Endocrine: Reports: no symptoms. Immunologic/Allergic: Reports: no symptoms. Objective Last 24 Hrs of Vital Signs/I&O Vital Signs Date Time Temp Pulse Resp B/P B/P Pulse O2 O2 Flow FiO2 Mean Ox Delivery Rate 02/03 0616 99.0 77 20 126/64 96 Room Air 02/02 2235 98.1 73 20 128/58 97 Room Air 02/02 1420 97.8 66 20 140/68 95 Room Air 02/02 1025 Room Air 02/02 1022 Room Air Intake & Output 02/03 1600 02/03 0800 02/03 0000 Intake Total 160 250 Output Total 800 600 Balance -640 -350 Intake, IV 160 Intake, Oral 250 Output, Urine 800 600 Physical Exam General Appearance: Alert, No Acute Distress Cardiovascular: Regular Rate, Normal S1, Normal S2 Lungs: Clear to Auscultation Abdomen: Normal Bowel Sounds, Soft, No Tenderness Extremities: No Edema, Normal Pulses, No Tenderness/Swelling Current Medications: Current Medications Sig/Rosa Start time Last Medication Dose Route Stop Time Status Admin Acetaminophen 1,000 MG Q6P PRN 01/30 1430 01/31 N/A 1 UNIT IV 0542 Acetaminophen 650 MG Q6P PRN 01/29 0130 AC 02/01 PO 2159 Brimonidine Tartrate 1 GTT BID 01/30 1115 AC 02/03 OPH 0812 Calcium Carbonate 1,250 MG QAM 01/29 0900 AC 02/03 PO 0804 Docusate Sodium 100 MG BID 02/02 1330 AC 02/03 PO 0804 Dorzolamide HCl 1 GTT BID 01/30 1115 AC 02/03 OPH 0812 Heparin Sodium 10,000 UNIT .STK-MED ONE 02/02 2339 DC (Porcine) IV 02/02 2340 Heparin Sodium 5,400 UNIT BOLUS ONE 02/02 2330 DC 02/02 (Porcine) IV 02/02 2331 2349 Heparin Sodium 5,000 UNIT .STK-MED ONE 02/02 0958 DC (Porcine) IV 02/02 0959 Heparin Sodium 2,900 UNIT ONCE ONE 02/02 0945 DC 02/02 (Porcine) IV 02/02 0946 1001 Heparin Sodium 25,000 UNIT Q24H 01/31 1530 AC 02/02 (Porcine) IV 2326 Sodium Chloride 500 ML Hydroxychloroquine 200 MG BID 01/29 0900 AC 02/03 Sulfate PO 08 Latanoprost 1 GTT AT BEDTIME 01/29 2100 AC 02/02 OPH 2104 Levothyroxine Sodium 0.112 MG DAILY 01/29 0900 AC 02/03 PO 0804 Lorazepam 0.5 MG AT BEDTIME 01/29 2100 AC 02/02 PO 02/05 2059 210 Polyethylene Glycol 17 GM DAILY 02/02 1330 AC 02/03 PO 0804 Senna/Docusate Sodium 1 TAB BID 02/02 1328 AC 02/03 PO 0804 Timolol Maleate 1 GTT QAM 01/29 0900 AC 02/03 OPH 0812 Vancomycin HCl 1,000 MG Q24H 01/31 1015 AC 02/02 Sodium Chloride 250 ML IV 0925 Last 24 Hrs of Lab/Black Results Last 24 Hrs of Labs/Mics: Laboratory Tests 02/03/18 0530: APTT > 120 *H 02/02/18 1940: APTT 43 H 02/02/18 1320: APTT > 120 *H Assessment/Plan Assessment: 82 yo F with a PMH of anxiety, hypothyroidism, dementia, depression, obstructive uropathy, ESBL and MRSA who presents from [place] to the ED with a fever of 102.5 and lethargy. - CXR, head CT negative -CT abd - Thick-walled appearance of the rectum with mild surrounding stranding; this could reflect a proctitis in the proper clinical setting Problem list: Sepsis with MRSA AMS Anemia History of UTI ESBL History of MRSA Assessment and Plan: * Blood cultures positive for MRSA. Source of infection unknown at this point. Patient underwent ultrasound of the right hip which showed small amount of effusion and it was drained with no evidence of any infection. Fluid culture is not growing any organisms so far. Patient is on vancomycin day 4. We will DO vancomycin trough level on . Patient vital stable, with no fever in the past 24 hours. Patient is on IV heparin for left leg DVT. ID on board. no further fevers or leukocytosis. * Patient has Dilaudid pump in her left lower abdomen which was inserted 15 years ago. Details unknoN. Infectious disease doctor suggested MRI of the spine but since she has Dilaudid pump. Not sure if it is MRI compatible. Patient's son doesn't have any further details. * Monitor hemoglobin. Today hemoglobin is 7.5 with hematocrit 32.7. * Holding antipsychotic/anti-depressive medications. restart as mental status improves * cont wound care and f/u wound care/imaging records * Ativan at bedtime for agitation. - Called [facility] who wouldn't confirm why the patient is on hydroxychloroquine/ Winters catheter/vancomycin allergy. Goals of care was discussed with the patient son Ovi ALFONSO. He said he will discuss with his family regarding proceeding for comfort care. Problem List: 1. MRSA bacteremia Pain Ratin Pain Location: no Pain Goal: Remain pain free Pain Plan: see a/p Tomorrow's Labs & Rationales: no
[2018-02-03 13:57] VITALS: BP 112/80
[2018-02-03 14:28] LABS: PTT 37 SEC (25-37)
--- NOTE | 2018-02-03 15:46 | PN- Infect Dx ---
Subjective Subjective: No fever/chills. Ate lunch. Review of Systems Comments: 12 points reviewed as noted, otherwise neg. Objective Last 24 Hrs of Vital Signs/I&O Vital Signs Date Time Temp Pulse Resp B/P B/P Pulse O2 O2 Flow FiO2 Mean Ox Delivery Rate 02/03 1357 98.6 80 20 112/80 96 Room Air 02/03 0616 99.0 77 20 126/64 96 Room Air 02/02 2235 98.1 73 20 128/58 97 Room Air Intake & Output 02/03 1600 02/03 0800 02/03 0000 Intake Total 160 250 Output Total 400 800 600 Balance -400 -640 -350 Intake, IV 160 Intake, Oral 250 Output, Urine 400 800 600 Physical Exam Other Physical Findings: General Appearance: Alert, No Acute Distress HEENT: AT, sclera anicteric Neck: No JVD Cardiovascular: Regular Rate, Normal S1, Normal S2 Lungs: Clear to Auscultation Abdomen: Normal Bowel Sounds, Soft, No Tenderness Extremities: No Edema, Normal Pulses, No Tenderness/Swelling Skin: pale Results Last 24 Hours of Lab Results: Laboratory Tests 02/03 02/03 02/02 1305 0530 1940 Coagulation APTT (25 - 37 SEC) 37 > 120 *H 43 H Last 24 Hours of Black Results: PEC #: [id number] ALESSANDRA: 01/31/18 STATUS: COMP RECD: 01/31/18-[address]: Jen CHEN,Kelsie SOURCE: BODY FLUID ENTR: 01/31/18-[address]: Alvaro [facility]EN, [facility] ORDERED: BODY FLD CULTUR COMMENT: RECEIVED SYRINGE WITH 5 CC OF YELLOW CLEAR FLUID Procedure Result > GRAM STAIN Final 01/31/18-1533 WHITE BLOOD CELLS NONE OTHER NO ORGANISMS SEEN > BODY FLUID CULTURE Final 02/03/18-1118 NO GROWTH AFTER 3 DAYS > URINE CULTURE Final 01/30/18-1153 Greater than 100,000 colonies per ml of: ESCHERICHIA COLI ESBL This isolate is a confirmed Extended Spectrum Beta-lacatmase (ESBL) producing organism. Place Patient on Contact Precaution Called to/readback by SARINA AT 114 LAB.GOOD by LAB.PATRICIACY 01/30/18 1121 1. ESCHERICHIA COLI ESBL RX AB ------ -- AMPICILLIN R CEFAZOLIN R AMOXICILLIN/CLAVULINIC ACID R AMPICILLIN/SULBACTAM R CEFOXITIN R CEFTAZIDIME R CEFTRIAXONE R CIPROFLOXACIN R GENTAMICIN R IMIPENEM S MEROPENEM S NITROFURANTOIN S TRIMETHOPRIM/SULFAMETHOXAZOLE S Recent Imaging Studies: CT A/P IMPRESSION: 1. Limited assessment of intra-abdominal structures due to streak artifact from spinal fusion hardware. 2. Thick-walled appearance of the rectum with mild surrounding stranding; this could reflect a proctitis in the proper clinical setting. DICTATED BY: Jelani Bejarano MD DATE/TIME DICTATED:01/29/184 [place] [facility] ATTENDANT:MADDISON DATE/TIME TRANSCRIBED:01/29/184 Assessment/Plan ID Impression: 82 yo WF with history of anxiety, hypothyroidism, dementia, depression, obstructive uropathy admitted 01/28 from [facility] with fever of 102.5 and lethargy; clinically improved Stable, with temperatures and white blood cell count normal, on Vancomycin, essentially Day 5 of treatment for MRSA sepsis. The source of her sepsis is unclear, with the right hip aspiration 2 days ago yielding clear fluid, with the culture remaining negative; therefore the significance of the complex fluid- filled tract extending from the subcutaneous tissues, possibly into the hip joint, is unclear. Further evaluation, including MRI of the spine (if able to do, given her pain pump) with her previous complaints of back pain, hardware in place, and the sacral decubitus and LUIS ANGEL may need to be considered. The family is apparently considering comfort care, which would obviously affect the level of further workup. Suggestion: 1. Goal of care per team 2. Vancomycin trough level on February 04 3. Continue iv Vancomycin
[2018-02-03 21:06] LABS: PTT > 120 SEC (25-37)
[2018-02-03 22:26] VITALS: BP 126/70
[2018-02-04 04:40] LABS: PTT 50 SEC (25-37)
[2018-02-04 06:21] VITALS: BP 110/62
--- NOTE | 2018-02-04 08:44 | PN- Housestaff ---
See Addendum Subjective Follow-up For: Sepsis with MRSA, left leg DVT Subjective: No overnight events. Patient complains of getting full easily and some mild belly pain. Otherwise, no chest pain or shortness of breath. Review of Systems Constitutional: Reports: no symptoms. EENTM: Reports: no symptoms. Cardiovascular: Reports: no symptoms. Respiratory: Reports: no symptoms. Gastrointestinal: Reports: see HPI. Genitourinary: Reports: no symptoms. Musculoskeletal: Reports: no symptoms. Skin: Reports: no symptoms. Neurological/Psychological: Reports: no symptoms. Hematologic/Endocrine: Reports: no symptoms. Immunologic/Allergic: Reports: no symptoms. Objective Last 24 Hrs of Vital Signs/I&O Vital Signs Date Time Temp Pulse Resp B/P B/P Pulse O2 O2 Flow FiO2 Mean Ox Delivery Rate 02/04 0621 99.1 87 20 110/62 96 Room Air 02/03 2226 98.0 88 20 126/70 98 02/03 1357 98.6 80 20 112/80 96 Room Air Intake & Output 02/04 1600 02/04 0800 02/04 0000 Intake Total 480 580 Output Total 800 600 Balance -320 -20 Intake, IV 120 100 Intake, Oral 360 480 Output, Urine 800 600 Patient 57.606 kg 57.606 kg Weight Weight Bed scale Bed scale Measurement Method Physical Exam General Appearance: Alert, Cooperative, No Acute Distress Cardiovascular: Regular Rate, Normal S1, Normal S2 Lungs: Clear to Auscultation Abdomen: Normal Bowel Sounds, Soft, MILDLY TENDER Extremities: No Edema, Normal Pulses, No Tenderness/Swelling Current Medications: Current Medications Sig/Rosa Start time Last Medication Dose Route Stop Time Status Admin Acetaminophen 1,000 MG Q6P PRN 01/30 1430 AC 01/31 N/A 1 UNIT IV 0542 Acetaminophen 650 MG Q6P PRN 01/29 0130 AC 02/01 PO 2159 Bisacodyl 10 MG ONCE ONE 02/04 0845 UNVr HI 02/04 0846 Bisacodyl 5 MG DAILY PRN 02/03 1600 AC 02/03 PO 2028 Brimonidine Tartrate 1 GTT BID 01/30 1115 AC 02/04 OPH 0830 Calcium Carbonate 1,250 MG QAM 01/29 0900 AC 02/04 PO 0830 Docusate Sodium 100 MG BID 02/02 1330 AC 02/04 PO 0830 Dorzolamide HCl 1 GTT BID 01/30 1115 AC 02/04 OPH 0830 Heparin Sodium 2,300 UNIT BOLUS ONE 02/04 0500 DC 02/04 (Porcine) IV 02/04 0501 0526 Heparin Sodium 5,400 UNIT ONE ONE 02/03 1500 DC (Porcine) IV 02/03 1501 Heparin Sodium 25,000 UNIT Q24H 01/31 1530 AC 02/04 (Porcine) IV 0526 Sodium Chloride 500 ML Hydroxychloroquine 200 MG BID 01/29 0900 AC 02/04 Sulfate PO 08 Latanoprost 1 GTT AT BEDTIME 01/29 2100 AC 02/03 OPH 2032 Levothyroxine Sodium 0.112 MG DAILY 01/29 0900 AC 02/04 PO 0830 Lorazepam 0.5 MG AT BEDTIME 01/29 2100 AC 02/03 PO 02/05 Polyethylene Glycol 17 GM DAILY 02/02 1330 AC 02/04 PO 0829 Senna/Docusate Sodium 1 TAB BID 02/02 1328 AC 02/04 PO 0830 Timolol Maleate 1 GTT QAM 01/29 0900 AC 02/04 OPH 0830 Vancomycin HCl 1,000 MG Q24H 01/31 1015 AC 02/03 Sodium Chloride 250 ML IV 0952 Last 24 Hrs of Lab/Black Results Last 24 Hrs of Labs/Mics: Laboratory Tests 02/04/18 0625: Vancomycin Trough Pending 02/04/18 0407: APTT 50 H 02/03/18 2020: APTT > 120 *H 02/03/18 1305: APTT 37 Assessment/Plan Assessment: 82 yo F with a PMH of anxiety, hypothyroidism, dementia, depression, obstructive uropathy, ESBL and MRSA who presents from [place] to the ED with a fever of 102.5 and lethargy. - CXR, head CT negative -CT abd - Thick-walled appearance of the rectum with mild surrounding stranding; this could reflect a proctitis in the proper clinical setting Problem list: Sepsis with MRSA AMS Anemia History of UTI ESBL History of MRSA Assessment and Plan: * Blood cultures positive for MRSA. Source of infection unknown at this point. Patient underwent ultrasound of the right hip which showed small amount of effusion and it was drained with no evidence of any infection. Fluid culture is not growing any organisms so far. Patient is on vancomycin day 5. We will DO vancomycin trough level on . Patient vital stable, with no fever in the past 24 hours. Patient is on IV heparin for left leg DVT. ID on board. no further fevers or leukocytosis. * Patient has Dilaudid pump in her left lower abdomen which was inserted 15 years ago. Details unknoN. Infectious disease doctor suggested MRI of the spine but since she has Dilaudid pump. Not sure if it is MRI compatible. Patient's son doesn't have any further details. * Monitor hemoglobin. Today hemoglobin is 7.5 with hematocrit 32.7. * Holding antipsychotic/anti-depressive medications. restart as mental status improves * cont wound care and f/u wound care/imaging records * Ativan at bedtime for agitation. We will add a bisacodyl suppository today. - Called heweiit who wouldn't confirm why the patient is on hydroxychloroquine/ Winters catheter/vancomycin allergy. Goals of care was discussed with the patient son Ovi ALFONSO. He said he will discuss with his family regarding proceeding for comfort care. Problem List: 1. MRSA bacteremia Pain Ratin Pain Location: no Pain Goal: Remain pain free Pain Plan: see a/p Tomorrow's Labs & Rationales: cbc
[2018-02-04 12:45] LABS: PTT 28 SEC (25-37)
[2018-02-04 14:46] VITALS: BP 132/70
--- NOTE | 2018-02-04 15:47 | PN- Infect Dx ---
Subjective Subjective: Mild abd discomfort reported earlier today. Review of Systems Comments: 12 points reviewed as noted, otherwise negative. Objective Last 24 Hrs of Vital Signs/I&O Vital Signs Date Time Temp Pulse Resp B/P B/P Pulse O2 O2 Flow FiO2 Mean Ox Delivery Rate 02/04 1446 97.7 80 20 132/70 96 Room Air 02/04 0621 99.1 87 20 110/62 96 Room Air 02/03 2226 98.0 88 20 126/70 98 Intake & Output 02/04 1600 02/04 0800 02/04 0000 Intake Total 250 480 580 Output Total 500 800 600 Balance -250 -320 -20 Intake, IV 120 100 Intake, Oral 250 360 480 Number 1 Bowel Movements Output, Urine 500 800 600 Patient 127 lb 127 lb Weight Weight Bed scale Bed scale Measurement Method Physical Exam Other Physical Findings: General Appearance: Alert, No Acute Distress HEENT: AT, sclera anicteric Neck: No JVD Cardiovascular: Regular Rate, Normal S1, Normal S2, 2/6 JAI Lungs: Clear to Auscultation Abdomen: Normal Bowel Sounds, Soft, No Tenderness Extremities: No Edema, Normal Pulses, No Tenderness/Swelling Skin: pale Results Last 24 Hours of Lab Results: Laboratory Tests 02/04 02/04 02/04 02/03 1137 0625 0407 2019 Coagulation APTT (25 - 37 SEC) 28 50 H > 120 *H Toxicology Vancomycin Trough (10.0 - 20.0 ug/mL) 6.3 L Last 24 Hours of Black Results: SPEC #: [id number] ALESSANDRA: 01/31/18 STATUS: RES RECD: 01/31/[address]: David CHEN, [place] SOURCE: BLOOD ENTR: 01/31/18 [facility] DR: Alvaro CHEN, [facility]: 2ND/VENOUS ORDERED: BLOOD CULTURE Procedure Result > BLOOD CULTURE REPORT Preliminary 02/01/18 No growth after 1 day incubation. Specimen is examined continuously for 5 days before final report unless culture becomes positive. Recent Imaging Studies: Reviewed Assessment/Plan ID Impression: 82 yo WF with history of anxiety, hypothyroidism, dementia, depression, obstructive uropathy admitted 01/28 from [facility] with fever of 102.5 and lethargy; clinically improved; fever resolved. Temperatures and white blood cell count normal, on Vancomycin, essentially Day # 6 of treatment for MRSA sepsis. The source of her sepsis is unclear, with the right hip aspiration 2 days ago yielding clear fluid, with the culture remaining negative; therefore the significance of the complex fluid-filled tract extending from the subcutaneous tissues, possibly into the hip joint, is unclear. Further evaluation, including MRI of the spine (if able to do, given her pain pump) with her previous complaints of back pain, hardware in place, and the sacral decubitus and LUIS ANGEL may need to be considered. The family is apparently considering comfort care, which would obviously affect the level of further workup. Suggestion: 1. Goal of care per team 2. Vancomycin trough level subtherapeutic; adjust dose per pharmacy; 3. Goal Vancomycin rrough 15-20.
[2018-02-04 19:28] LABS: PTT 97 SEC (25-37)
[2018-02-04 21:52] VITALS: BP 134/60
[2018-02-05 04:23] LABS: PTT 62 SEC (25-37)
[2018-02-05 06:04] VITALS: BP 128/62
--- NOTE | 2018-02-05 06:55 | PN- Housestaff ---
Subjective Follow-up For: MRSA sepsis Complaints: no complaints Subjective: Pt seen and examine at bedside. No over night events. Patient seems confused. Oriented 1. Complains of pain all over the body. Review of Systems Constitutional: Reports: no symptoms, see HPI. Objective Last 24 Hrs of Vital Signs/I&O Vital Signs Date Time Temp Pulse Resp B/P B/P Pulse O2 O2 Flow FiO2 Mean Ox Delivery Rate 02/05 0939 Room Air 02/05 0604 97.0 80 20 128/62 94 Room Air 02/05 0000 Room Air 02/04 2357 99.3 02/04 2152 100.5 90 20 134/60 94 02/04 1446 97.7 80 20 132/70 96 Room Air Intake & Output 02/05 1600 02/05 0800 02/05 0000 Intake Total 646 Output Total 450 850 850 Balance -450 -850 -204 Intake, IV 166 Intake, Oral 480 Number 3 2 Bowel Movements Output, Urine 450 850 850 Patient 127 lb Weight Physical Exam General Appearance: Alert, Oriented X3, Cooperative, No Acute Distress Cardiovascular: Regular Rate, Normal S1, Normal S2, No Murmurs Lungs: Clear to Auscultation Abdomen: Soft, No Tenderness, No Hepatospenomegaly Current Medications: Current Medications Sig/Rosa Start time Last Medication Dose Route Stop Time Status Admin Acetaminophen 1,000 MG Q6P PRN 01/30 1430 AC 01/31 N/A 1 UNIT IV 0542 Acetaminophen 650 MG Q6P PRN 01/29 0130 AC 02/01 PO 2159 Bisacodyl 5 MG DAILY PRN 02/03 1600 AC 02/03 PO 2028 Brimonidine Tartrate 1 GTT BID 01/30 1115 AC 02/05 OPH 0956 Calcium Carbonate 1,250 MG QAM 01/29 0900 AC 02/05 PO 0955 Docusate Sodium 100 MG BID 02/02 1330 AC 02/04 PO 0830 Dorzolamide HCl 1 GTT BID 01/30 1115 AC 02/05 OPH 0957 Heparin Sodium 4,320 UNIT ONE ONE 02/04 1330 DC 02/04 (Porcine) IV 02/04 1331 1325 Heparin Sodium 25,000 UNIT Q24H 01/31 1530 AC 02/05 (Porcine) IV 0954 Sodium Chloride 500 ML Hydroxychloroquine 200 MG BID 01/29 0900 AC 02/05 Sulfate PO 0955 Latanoprost 1 GTT AT BEDTIME 01/29 2100 AC 02/04 OPH 2118 Levothyroxine Sodium 0.112 MG DAILY 01/29 0900 AC 02/05 PO 0955 Lorazepam 0.5 MG AT BEDTIME 01/29 2100 AC 02/04 PO 02/05 Polyethylene Glycol 17 GM DAILY 02/02 1330 AC 02/04 PO 0829 Senna/Docusate Sodium 1 TAB BID 02/02 1328 AC 02/04 PO 0830 Timolol Maleate 1 GTT QAM 01/29 0900 AC 02/05 OPH 0956 Vancomycin HCl 1,000 MG Q12 02/04 2100 AC 02/05 Sodium Chloride 250 ML IV 0955 Last 24 Hrs of Lab/Black Results Last 24 Hrs of Labs/Mics: Laboratory Tests 02/05/18 0758: CBC w Diff NO MAN DIFF REQ, RBC 2.27 L, MCV 80.5 L, MCH 26.5 L, MCHC 32.9 L, RDW 17.6 H, MPV 8.3, Gran % 83.4 H, Lymphocytes % 8.5 L, Monocytes % 7.3, Eosinophils % 0.6, Basophils % 0.2, Absolute Granulocytes 10.2 H, Absolute Lymphocytes 1.0 L, Absolute Monocytes 0.9 H, Absolute Eosinophils 0.1, Absolute Basophils 0 02/05/18 0445: APTT Cancelled 02/05/18 0345: APTT 62 H 02/04/18 1845: APTT 97 H 02/04/18 1137: APTT 28 Assessment/Plan Assessment: 82 yo F with a PMH of anxiety, hypothyroidism, dementia, depression, obstructive uropathy, ESBL and MRSA who presents from [place] to the ED with a fever of 102.5 and lethargy. - CXR, head CT negative -CT abd - Thick-walled appearance of the rectum with mild surrounding stranding; this could reflect a proctitis in the proper clinical setting Problem list: Sepsis with MRSA AMS Anemia History of UTI ESBL History of MRSA Assessment and Plan: * Blood cultures positive for MRSA. Source of infection unknown at this point. Patient underwent ultrasound of the right hip which showed small amount of effusion and it was drained with no evidence of any infection. Fluid culture is not growing any organisms so far. Patient is on vancomycin every 12, 1 g day 6. Vancomycin trough was subtherapeutic yesterday. Patient vital stable, with no fever in the past 24 hours. Patient is on IV heparin for left leg DVT. We will discuss with attending regarding switching her to oral anticoagulant. Patient hemoglobin today is 6 and hematocrit 18.3. In view of hospice evaluation today will defer any further blood transfusion. Patient ID follow-up. * Patient has Dilaudid pump in her left lower abdomen which was inserted 15 years ago. Details unknoN. Infectious disease doctor suggested MRI of the spine but since she has Dilaudid pump this was not compatible with MRI. * Holding antipsychotic/anti-depressive medications. restart as mental status improves * cont wound care and f/u wound care/imaging records * Ativan at bedtime for agitation. - Called heweiit who wouldn't confirm why the patient is on hydroxychloroquine/ Winters catheter/vancomycin allergy. Goals of care was discussed with the patient son Ovi ALFONSO. He suggested for hospice evaluation today. Problem List: 1. MRSA bacteremia Pain Ratin Pain Location: NONE Pain Goal: Remain pain free Pain Plan: TYLENOL Tomorrow's Labs & Rationales: CBC
[2018-02-05 09:04] LABS: ABSOLUTE BASOPHIL COUNT 0 /CUMM (0.0-0.2); ABSOLUTE EOSINOPHIL COUNT 0.1 /CUMM (0.0-0.7); ABSOLUTE GRANULOCYTE CT 10.2 /CUMM (1.4-6.5); ABSOLUTE MONOCYTE COUNT 0.9 /CUMM (0.10-0.60); BASOPHIL % 0.2 % (0.0-2.0); EOSINOPHIL % 0.6 % (0-5); MEAN CORPUSCULAR HGB 26.5 PG (27.0-31.0); MEAN CORPUSCULAR HGB CONC 32.9 G/DL (33.0-37.0); MEAN CORPUSCULAR VOLUME 80.5 FL (81.0-99.0); MEAN PLATELET VOLUME 8.3 FL (7.4-10.4); RBC DISTRIBUTION WIDTH 17.6 % (11.5-14.5); RED BLOOD CELL CT 2.27 /CUMM (4.20-5.40)
[2018-02-05 09:33] LABS: HEMATOCRIT 18.3 % (37-47)
[2018-02-05 10:12] LABS: PLATELET COUNT 484 /CUMM (130-400); WHITE BLOOD CELL COUNT 12.3 /CUMM (4.8-10.8)
[2018-02-05 10:13] LABS: GRANULOCYTE % 83.4 % (42.2-75.2)
--- NOTE | 2018-02-05 12:45 | PN- Infect Dx ---
Subjective Subjective: T-max 100.5. She offers no complaints. Objective Last 24 Hrs of Vital Signs/I&O Vital Signs Date Time Temp Pulse Resp B/P B/P Pulse O2 O2 Flow FiO2 Mean Ox Delivery Rate 02/05 0939 Room Air 02/05 0604 97.0 80 20 128/62 94 Room Air 02/05 0000 Room Air 02/04 2357 99.3 02/04 2152 100.5 90 20 134/60 94 02/04 1446 97.7 80 20 132/70 96 Room Air Intake & Output 02/05 1600 02/05 0800 02/05 0000 Intake Total 646 Output Total 450 850 850 Balance -450 -850 -204 Intake, IV 166 Intake, Oral 480 Number 3 2 Bowel Movements Output, Urine 450 850 850 Patient 127 lb Weight Physical Exam Other Physical Findings: She appears comfortable in no acute distress Lungs are clear Heart regular rhythm with a 2/6 systolic ejection murmur Abdomen is soft, nontender with positive bowel sounds Extremities no cyanosis, clubbing or edema Results Last 24 Hours of Lab Results: Laboratory Tests 02/05 02/05 02/05 0758 0445 0345 Coagulation APTT (25 - 37 SEC) Cancelled 62 H Hematology CBC w Diff NO MAN DIFF REQ WBC (4.8 - 10.8 /CUMM) 12.3 H RBC (4.20 - 5.40 /CUMM) 2.27 L Hgb (12.0 - 16.0 G/DL) 6.0 *L Hct (37 - 47 %) 18.3 *L MCV (81.0 - 99.0 FL) 80.5 L MCH (27.0 - 31.0 PG) 26.5 L MCHC (33.0 - 37.0 G/DL) 32.9 L RDW (11.5 - 14.5 %) 17.6 H Plt Count (130 - 400 /CUMM) 484 H MPV (7.4 - 10.4 FL) 8.3 Gran % (42.2 - 75.2 %) 83.4 H Lymphocytes % (20.5 - 51.1 %) 8.5 L Monocytes % (1.7 - 9.3 %) 7.3 Eosinophils % (0 - 5 %) 0.6 Basophils % (0.0 - 2.0 %) 0.2 Absolute Granulocytes (1.4 - 6.5 /CUMM) 10.2 H Absolute Lymphocytes (1.2 - 3.4 /CUMM) 1.0 L Absolute Monocytes (0.10 - 0.60 /CUMM) 0.9 H Absolute Eosinophils (0.0 - 0.7 /CUMM) 0.1 Absolute Basophils (0.0 - 0.2 /CUMM) 0 02/04 1845 Coagulation APTT (25 - 37 SEC) 97 H Last 24 Hours of Black Results: Blood cultures January 30 negative Blood cultures January 31 negative Right hip joint aspiration January 31 negative Assessment/Plan ID Impression: Low-grade fever last night, with an increase in her white blood cell count today , possibly related to the marked drop in her H&H, which is of unclear etiology. She remains on Vancomycin, Day 7 of treatment for MRSA sepsis, with her blood cultures remaining negative for the past 6 days. The source of her sepsis is unclear, with the right hip aspiration 5 days negative, though the complex fluid -filled tract extending from the subcutaneous tissues, possibly into the hip joint, remains unexplained. Further evaluation, including MRI of the spine (if able to do, given her pain pump) with her previous complaints of back pain, hardware in place, and the sacral decubitus and LUIS ANGEL may need to be considered, but the family is apparently considering comfort care, which would obviously affect the level of further workup for this as well as for her anemia. Her Vancomycin trough level was low, though it is not clear that it represents a trough, and it will need to be repeated on her new scheduling regimen. Suggestion: 1. Await decision regarding overall level of care 2. Further workup for her anemia and source of sepsis based on above 3. Repeat Vancomycin trough level with the fourth or fifth dose of her new regimen 4. Continue Vancomycin
--- NOTE | 2018-02-05 13:37 | PN- Att Addend ---
Attending Addendum Attending Brief Note No new complaints, patient in bed sitter at the bedside. Resident continues communicate with the son would like a hospice consultation see the patient is appropriate for comfort care. If they agree and we'll start plans and decide about anticoagulation Intake & Output 02/05 0400 02/04 1600 02/04 0400 02/03 1600 02/03 0400 Intake Total 646 730 580 160 250 Output Total 2068 469 9057 600 1200 600 Balance -1300 -204 - -350 Intake, IV 166 120 100 160 Intake, Oral 480 610 480 250 Number 3 2 1 Bowel Movements Output, Urine 7567 402 2449 600 1200 600 Patient 127 lb 127 lb 127 lb Weight Weight Bed scale Bed scale Measurement Method Current Medications Sig/Rosa Start time Last Medication Dose Route Stop Time Status Admin Acetaminophen 1,000 MG Q6P PRN 01/30 1430 AC 01/31 N/A 1 UNIT IV 0542 Acetaminophen 650 MG Q6P PRN 01/29 0130 AC 02/01 PO 2159 Bisacodyl 5 MG DAILY PRN 02/03 1600 AC 02/03 PO 202 Brimonidine Tartrate 1 GTT BID 01/30 1115 AC 02/05 OPH 0956 Calcium Carbonate 1,250 MG QAM 01/29 09 AC 02/05 PO 0955 Docusate Sodium 100 MG BID 02/02 1330 AC 02/04 PO 0830 Dorzolamide HCl 1 GTT BID 01/30 1115 AC 02/05 OPH 0957 Heparin Sodium 25,000 UNIT Q24H 01/31 1530 AC 02/05 (Porcine) IV 0954 Sodium Chloride 500 ML Hydroxychloroquine 200 MG BID 01/29 09 AC 02/05 Sulfate PO 0955 Latanoprost 1 GTT AT BEDTIME 01/29 2100 AC 02/04 OPH 8 Levothyroxine Sodium 0.112 MG DAILY 01/29 09 AC 02/05 PO 0955 Lorazepam 0.5 MG AT BEDTIME 01/29 2100 AC 02/04 PO 02/05 Polyethylene Glycol 17 GM DAILY 02/02 1330 AC 02/04 PO 0829 Senna/Docusate Sodium 1 TAB BID 02/02 1328 AC 02/04 PO 0830 Timolol Maleate 1 GTT QAM 01/29 0900 AC 02/05 OPH 0956 Vancomycin HCl 1,000 MG Q12 02/04 2100 AC 02/05 Sodium Chloride 250 ML IV 0955 Laboratory Tests 02/05/18 0758: CBC w Diff NO MAN DIFF REQ, RBC 2.27 L, MCV 80.5 L, MCH 26.5 L, MCHC 32.9 L, RDW 17.6 H, MPV 8.3, Gran % 83.4 H, Lymphocytes % 8.5 L, Monocytes % 7.3, Eosinophils % 0.6, Basophils % 0.2, Absolute Granulocytes 10.2 H, Absolute Lymphocytes 1.0 L, Absolute Monocytes 0.9 H, Absolute Eosinophils 0.1, Absolute Basophils 0 02/05/18 0445: APTT Cancelled 02/05/18 0345: APTT 62 H 02/04/18 1845: APTT 97 H 02/04/18 1137: APTT 28 02/04/18 0625: Vancomycin Trough 6.3 L 02/04/18 0407: APTT 50 H 02/03/18 2020: APTT > 120 *H 02/03/18 1305: APTT 37 02/03/18 0530: APTT > 120 *H 02/02/18 1940: APTT 43 H Vital Signs Date Time Temp Pulse Resp B/P B/P Pulse O2 O2 Flow FiO2 Mean Ox Delivery Rate 02/05 0939 Room Air 02/05 0604 97.0 80 20 128/62 94 Room Air 02/05 0000 Room Air 02/04 2357 99.3 02/04 2152 100.5 90 20 134/60 94 02/04 1446 97.7 80 20 132/70 96 Room Air Patient H&H also dropped the patient is not on to have comfort care then she will need transfusions.
--- NOTE | 2018-02-05 13:46 | Patient Discharge Instructions ---
Discharge Instructions General Discharge Information You were seen/treated for: MRSA sepsis Watch for these problems: In case of any chest pain, shortness of breath please go to the nearest emergency room Special Instructions: Follow-up with your primary care provider within 1-2 weeks of discharge Diet Continue normal diet: Yes Activity Full Activity/No Limits: No Activity Self Limited: Yes Acute Coronary Syndrome Inclusion Criteria At DC or during hospital stay patient has or had the following: ACS DIAGNOSIS No Discharge Core Measures Meds if any: Prescribed or Continued at Discharge JODI/ARB if EF <40% No Meds if any: NOT Prescribed or Continued at Discharge Congestive Heart Failure Inclusion Criteria At DC or during hospital stay patient has or had the following: CHF DIAGNOSIS No Discharge Core Measures Meds if any: Prescribed or Continued at Discharge JODI/ARB for EF <40% No Meds if any: NOT Prescribed or Continued at Discharge Cerebrovascular accident Inclusion Criteria At DC or during hospital stay patient has or had the following: CVA/TIA Diagnosis No Discharge Core Measures Meds if any: Prescribed or Continued at Discharge Meds if any: NOT Prescribed or Continued at Discharge Venous thromboembolism Inclusion Criteria VTE Diagnosis No VTE Type NONE VTE Confirmed by (Test) NONE Discharge Core Measures - Per Current guidelines, there needs to be overlap - treatment for the first 5 days of Warfarin therapy. - If discharged on Warfarin prior to 5 days of - overlap therapy, the patient will need to be - assessed for post discharge needs including - *Post discharge parental anticoagulation - *Warfarin and/or parental anticoagulation education - *Follow up date to check INR post discharge At least 5 days overlap therapy as Inpatient No Meds if any: Prescribed or Continued at Discharge Note: Overlap Therapy is Warfarin and Anticoagulant Meds if any: NOT Prescribed or Continued at Discharge
[2018-02-05 14:00] VITALS: BP 122/60
[2018-02-05 15:26] VITALS: BP 122/60
== END 2018-02-05 17:25 | DRG 871 ==
LOC: ERH 20:58 → ERHI 01-29 00:56 → 2NA 01-29 00:56 → ENRESERV 01-29 02:12 → 2NA 01-29 03:32
PROVIDERS: Internal Medicine; Physician Assistant Medical; Student in an Organized Health Care Education/Training Program
PROC: 0S993ZX Drainage of Right Hip Joint, Percutaneous Approach, Diagnostic (ICD-10-PCS; principal; 2018-01-31)
DX: A41.02 Sepsis due to Methicillin resistant Staphylococcus aureus (principal); L89.153 Pressure ulcer of sacral region, stage 3; I82.432 Acute embolism and thrombosis of left popliteal vein; S73.004A Unspecified dislocation of right hip, initial encounter; D64.9 Anemia, unspecified; N13.9 Obstructive and reflux uropathy, unspecified; Z96.0 Presence of urogenital implants; Z51.5 Encounter for palliative care; Z86.14 Personal history of Methicillin resistant Staphylococcus aureus infection; E03.9 Hypothyroidism, unspecified; F03.90 Unspecified dementia, unspecified severity, without behavioral disturbance, psychotic disturbance, mood disturbance, and anxiety; F41.9 Anxiety disorder, unspecified; F32.9 Major depressive disorder, single episode, unspecified; Z88.1 Allergy status to other antibiotic agents; Z88.5 Allergy status to narcotic agent; Z88.8 Allergy status to other drugs, medicaments and biological substances; H40.9 Unspecified glaucoma; K59.00 Constipation, unspecified; Z66 Do not resuscitate; Z98.1 Arthrodesis status; Z96.641 Presence of right artificial hip joint
CPT/HCPCS: 2NAP; 87075; 87184; 36415; 36592; 71045; 74176; 76881; 80307; 81001; 82436; 87040; 87070; 87086; 87147; 88305; 93005; 93010; 93306; 99291; J0131; J0743; J1200; J1644; J1650; J2001; J2185; J3370; J7040